=== PATIENT | female | born 1955 | race African-American/Black ===

== ENCOUNTER 2019-11-08 12:18 | Inpatient (IN) ==
--- NOTE | 2019-11-08 14:59 | Internal Med History&Physical ---
Medical - H&P: [facility] Patient information: Note initiated : 11/08/19 at 2:57 pm Service Date, if different from initiated Date: [] Patient: Gayla Hewitt 63 y/o F admitted on 11/08/19 for Osteomyelitis. Chief Complaint: [] History of present illness: Ms. Refugio Burnett is a 63 year old F 63-year-old female who was is being worked up for thoracic region back pain outpatient and underwent MRI of the lumbar thoracic spine which found to have osteomyelitis discitis of T8-9 and T12-L1. Pain is been going on for over 3 months. She was brought into [facility] started on vancomycin and cefepime. Blood cultures growing Staph. Echocardiogram pending. Final biopsy was obtained as well and a PICC line placed. Blood culture obtained on the fifth and again today on the seventh at [place]. Plan was for dialysis and then removal of that port, having determined by nephrology. Review of Systems: Pertinent positives as above including occasional nausea. Denies headache/fever/chills/vomiting/chest or abdominal pain/cough/dyspnea/diarrhea. Remaining 10 point review of system reviewed negative. Medical - H&P: [facility] Medical history: Medical history: Strain of lumbar region (Acute) Arteriovenous fistula for hemodialysis in place, primary (Chronic) Vision loss of right eye (Chronic) ESRD on hemodialysis (Chronic) Right sided weakness (Chronic) CKD (chronic kidney disease) (Chronic) Risk for falls (Chronic) Diabetes (Chronic) Bone disease (Chronic) Able to function independently (Chronic) Disruptive behavior (Chronic) Retinal detachment (Chronic) Nephropathy (Chronic) ESRD (end stage renal disease) (Chronic) Hx of transfusion of packed red blood cells (Chronic) Congestive heart failure (Chronic) Blindness of right eye (Chronic) Weakness of right lower extremity (Chronic) Disc herniation (Chronic) Cord compression (Chronic) Essential hypertension (Chronic) Repeated falls (Chronic) Difficulty in walking, not elsewhere classified (Chronic) Rhabdomyolysis (Chronic) Muscle weakness (Chronic) Hyperlipidemia (Chronic) Right hip pain (Chronic) Kidney failure (Chronic) Joint pain (Chronic) High cholesterol (Chronic) High blood pressure (Chronic) Type 2 diabetes mellitus (Chronic) Muscle pain (Chronic) Anemia (Chronic) Surgical history: Left upper extremity fistula Ankle surgery Right subclavian port Laser surgery for diabetic retinopathy Family history: Father with prostate cancer Social history: Patient denies tobacco or alcohol Medical - H&P: Meds Home Medications Medication Instructions Recorded Confirmed Type calcium carbonate 300 mg (750 mg) 300 mg PO TID 06/18/19 11/05/19 History chewable tablet torsemide 20 mg tablet 20 mg PO QDAY #90 tab 07/24/19 11/05/19 Rx clopidogrel 75 mg tablet 75 mg PO QDAY #90 tab 07/25/19 11/05/19 Rx lidocaine-prilocaine 2.5 %-2.5 % 1 applic TOPICAL 3XW #5 g 09/11/19 11/05/19 Rx topical cream calcitonin (salmon) 200 1 spray INTRANASAL (ALT) QDAY 28 10/03/19 11/05/19 Rx unit/actuation nasal spray Days #3.7 ml nifedipine 60 mg tablet,extended 60 mg PO QDAY #30 tab 10/16/19 11/05/19 Rx release cholecalciferol (vitamin D3) 50 2,000 unit PO QDAY #30 tab 10/18/19 11/05/19 Rx mcg (2,000 unit) tablet cyclobenzaprine 10 mg tablet 10 mg PO TID PRN #30 tab 11/05/19 11/05/19 Rx oxycodone-acetaminophen 5 mg-325 1 tab PO BID PRN #30 tab 11/05/19 11/05/19 Rx mg tablet Allergies Allergy/AdvReac Type Severity Reaction Status Date / Time No Known Drug Allergies Allergy Verified 11/05/19 07:54 Medical - H&P: Exam - Constitutional Exam: General: Alert, Awake, No acute Distress Eyes/N/T: EOMI, PERRL, Head/Neck: neck supple, normocephalic atraumatic CV: RRR, 3/6 SM, normal s1/s2 Pulm: Clear b/l, no wheezing/rhonchi/rales Abd: soft, nontender, +BS x4 Ext: no clubbing/cyanosis, trace b/l LE edmea, AV fistula LUE Neuro: Alert, no focal deficits, moves all extremities, CN 2-12 grossly intact, symmetrical strength b/l upper/lower, sensations intact b/l upper/lower Skin: warm/dry Medical - H&P: A/P - Narrative A/P Narrative: A: *Osteomyelitis/discitis T8-9 and T12-L1: *Bacteremia (Staph Epi): *DM: Diet controlled *ESRD: has AV fistula 06/2019 then stent placed 07/2019 (Dr. Short/Gabriela) and is on ASA/Plavix *Anemia, chronic: *Chronic LBP: *HTN: * P: -pending biopsy results, serial BCs (11/08 from [facility]) -ID following, currently on vanco/cefazolin -echo pending from [facility] -Dr. Alvarez for HD; HD cath to come out after HD with tip culture, timing determined by nephrology -cont home torsemide/nifedipine -cont home asa/plavix -pain control -SSI - -ppx: heparin
[2019-11-08] MEDS ORDERED: POTASSIUM CHLORIDE 20 MEQ TABLET PO PRN (15:08)
[2019-11-08] MEDS ORDERED: ACETAMINOPHEN 325 MG TABLET PO PRN (15:08)
[2019-11-08] MEDS ORDERED: IPRATROPIUM/ALBUTEROL 3 ML AMPUL.NEB NEB PRN (15:08)
[2019-11-08] MEDS ORDERED: SENNOSIDES 1 TABLET PO PRN (15:08)
[2019-11-08] MEDS ORDERED: POLYETHYLENE GLYCOL 3350 17 GM PACKET PO PRN (15:08)
[2019-11-08] MEDS ORDERED: MAGNESIUM SULFATE 2 GM/50 ML BAG IV PRN (15:08)
[2019-11-08] MEDS ORDERED: DEXTROSE 50% 50 ML VIAL IV PRN (15:11)
[2019-11-08] MEDS ORDERED: DEXTROSE 31 GM ORAL.SUSP PO PRN (15:11)
[2019-11-08] MEDS ORDERED: ceFAZolin 1 GM VIAL IV SCH (15:15)
[2019-11-08] MEDS ORDERED: VANCOMYCIN PER PHARMACY IV SCH (16:30)
--- NOTE | 2019-11-08 16:34 | Event Note ---
Full note to follow tomorrow. Pt referred to me by PCP (Dr Suggs) for MRI findings concerning for discitis, osteomyelitis and phelgmon at T8-T9 and also discitis at T10-T11. Given her risk factors (dialysis patient with a catheter), she was sent to [facility] for admission, biopsy of spine, blood Cx [as [facility] had no empty beds]. Blood Cx from 11/06 growing mec A positive Staph epidermidis, with final sensi pending. Now she is back to [facility] for inpatient dialysis and management of spinal oste and bacteremia. Recs: - take out the HD cath as it is the likely source - repeat blood Cx - send MRSA nasal swab. Consider decolonization, if positive - TTE (if not done at [facility]) - US of AV fistula site to r/o any suspicious fluid collections. - IV Vanc per pharmacy dosing with dosing after each HD. Check levels prior to each HD with target (15-20) - IV Cefazolin can be stopped Sharan Vasquez MD Infectious diseases
[2019-11-08] MEDS: INSULIN LISPRO 1 UNIT/0.01 ML UNIT SQ SCH ×2 (17:36→22:22)
--- NOTE | 2019-11-08 18:40 | Nephrology Progress Note ---
Subjective Patient information: Note initiated : 11/08/19 at 6:03 pm Service Date, if different from initiated Date: [] Patient: Gayla Hewitt 63 y/o F admitted on 11/08/19 for Osteomyelitis. Chief Complaint: [] Principal diagnosis: T-spine discitis / osteomyelitis Interval history: Patient is a dialysis patient followed by Dr Potts and PCP Dr Tobin. She has ESRD and retinopathy from DM. She dialyzes qMWF at [facility] HD unit. She has been experiencing back pain for 2 months and an MRI was ordered which demonstrated a area of discitis and osteomyelitis. She was admitted to [facility] for ABx and IR aspiration of t fluid collection. Today, she had a low grade fever. Initial blood cultures have grown Gram positive cocci on 11/06/2019 Aspiration of fluid was performed on 11/07/2019 and gm stain with WBC but no organisms seen. TTE was performed and there was MR with mobile density on chordae c/w loose chrodae or vegitation. Suspect osteo/discitis t-spine, Possibe endocarditis Long tern cuffed HD catheter use. Plan HD Vanco to keep trough level > 20 8 weeks of ABx Catheter removal Rehab and PT Home antitibiotics with home health Pertinent ROS: Nothing to add to admission ROS Additional PMFSH (Level 3 Only): NTA Objective - Vital Signs Vital signs: Vital Signs Temp Pulse Resp BP Pulse Ox 11/08/19 16:00 36.7 C 16 160/83 92 11/08/19 15:08 36.8 C 95 H 20 172/82 94 Intake and Output 11/08/19 11/08/19 11/08/19 05:59 13:59 21:59 Intake Total 50 Balance 50 Intake: Oral 50 Intake & Output: Intake & Output 11/08/19 11/08/19 11/08/19 05:59 13:59 21:59 Intake Total 50 Balance 50 Intake: Oral 50 - General Appearance General appearance: well-developed, well-nourished, appears started age, moderate distress EENT: ATNC, PERRL, mucous membranes dry, exudate, TM abnormal, scleral icterus Neck: no JVD, no thyromegaly, supple Respiratory: scoliosis Cardiology: holosystolic murmur, rub, no gallops, regular rate Gastrointestinal: obese Neurologic: no focal deficit, alert and oriented x3, strength 5/5, CN 3-12 intact (RigAVFht IJ cuffed HD catheter and left AVF) Musculoskeletal: no deformities, deformities, no erythema, erythema Assessment and Plan (1) Discitis of thoracolumbar region 1. Follow up blood and spinal aspirate cultures from [facility]. 2. PT/OT 3. 8 weeks of culture guided ABx 4. Follow murmur as if this is UMESH, she could deteriorate rapidly 5. Catheter out as soon as Monday 6. Trend Vanco, CRP and blood cultures 7. Home or outpatient Abx once final ID and sensitivities are known. Status: Acute Priority: High Comment: T12-L1 (2) ESRD (end stage renal disease) 1. Use 16 gauge needles and low flows 2. Catheter out LATESHA 3. Aranesp and 1,25 vit d 3 analogues as needed. 4. HD tomorrow Status: Chronic Priority: Medium
[2019-11-08] MEDS: ONDANSETRON 4 MG/2 ML VIAL IV PRN (19:57)
[2019-11-08] MEDS: DOCUSATE SODIUM 100 MG CAPSULE PO SCH (22:21)
[2019-11-08] MEDS: HEPARIN 5,000 UNIT/ML VIAL SQ SCH (22:22)
[2019-11-08] MEDS: 0.9 % SODIUM CHLORIDE 10 ML SYRINGE IV SCH (22:22)
[2019-11-08] MEDS ORDERED: 0.9 % SODIUM CHLORIDE 10 ML SYRINGE IV PRN (22:24)
[2019-11-09] MEDS ORDERED: oxyCODONE/APAP 5/325MG TABLET PO PRN (01:46)
[2019-11-09] MEDS ORDERED: oxyCODONE/APAP 5/325MG TABLET PO ONE (01:52)
[2019-11-09] MEDS: 0.9 % SODIUM CHLORIDE 10 ML SYRINGE IV SCH ×5 (04:57→22:28)
[2019-11-09 07:08] LABS: Basophils # (Auto) 0.06 K/mcL (0.00-0.30); Eosinophils # (Auto) 0.22 K/mcL (0.00-0.70); Eosinophils % (Auto) 3.7 % (0.0-7.0); Granulocytes % (Auto) 73.1 % (38.0-78.0); Hematocrit 31.5 % (34.1-44.9); Hemoglobin 9.6 g/dL (11.2-15.7); Lymphocytes # (Auto) 0.93 K/mcL (1.50-4.80); Lymphocytes % (Auto) 15.6 % (15.5-49.0); Mean Cell Volume 86.5 fL (80.0-100.0); Mean Corpuscular HGB Conc 30.5 g/dL (31.0-36.0); Monocytes # (Auto) 0.39 K/mcL (0.10-0.90); Monocytes % (Auto) 6.6 % (1.0-12.0); Platelet Count 494 K/mcL (140-440); RBC 3.64 M/mcL (3.59-5.38); Red Cell Distribution Width 13.8 % (11.5-14.5)
[2019-11-09] MEDS: INSULIN LISPRO 1 UNIT/0.01 ML UNIT SQ SCH ×4 (07:20→20:54)
[2019-11-09 07:49] LABS: Bilirubin,Direct < 0.2 mg/dL (0.0-0.3); Chloride 100 mmol/L (96-108)
[2019-11-09 07:50] LABS: ALT/SGPT < 5 U/l (0-40); AST/SGOT 8 U/l (0-37); Albumin 3.2 gm/dL (3.2-5.2); Alkaline Phosphatase 71 U/L (39-117); Bilirubin,Total 0.4 mg/dL (0.0-1.0); Blood Urea Nitrogen 29 mg/dl (8-23); Calcium 8.7 mg/dl (8.6-10.4); Carbon Dioxide 21 mmol/L (22-30); Globulin 3.3 gm/dL (2.2-3.7); Glomerular Filtration Rate 10; Glucose 67 mg/dL (70-105); Lactate Dehydrogenase 209 U/L (94-250); Phosphorous 3.6 mg/dL (2.7-4.5); Triglycerides 115 mg/dl (<150)
[2019-11-09] MEDS ORDERED: CYCLOBENZAPRINE (PP) 10 MG TABLET PO PRN (08:18)
--- NOTE | 2019-11-09 08:23 | Internal Med Progress Note ---
Medical - PN: Subj Patient information: Note initiated : 11/09/19 at 8:22 am Service Date, if different from initiated Date: [] Patient: Gayla Hewitt 63 y/o F admitted on 11/08/19 for Osteomyelitis. Chief Complaint: [] Interval history: Ms. Refugio Burnett is a 63 year old F 63-year-old female who was is being worked up for thoracic region back pain outpatient and underwent MRI of the lumbar thoracic spine which found to have osteomyelitis discitis of T8-9 and T12-L1. Pain is been going on for over 3 months. She was brought into [facility] started on vancomycin and cefepime. Blood cultures growing Staph. Echocardiogram pending. Final biopsy was obtained as well and a PICC line placed. Blood culture obtained on the fifth and again today on the seventh at [place]. Plan was for dialysis and then removal of that port, having determined by nephro logy. 11/09 Feeling well no new complaints. No overnight events. Scheduled to get hemod ialysis today and then removal of HD catheter. Last blood cultures taken yesterday. Follow-up cultures tomorrow for final ID recommendations. Review of Systems: denies headache/fever/chills/nausea/vomiting/chest pain/cough/dyspnea/diarrhea. Otherwise see above. - Constitutional Vitals: Vital Signs Temp Pulse Resp BP Pulse Ox 98.4 F 91 H 16 146/75 93 11/09/19 07:34 11/09/19 07:34 11/09/19 07:34 11/09/19 07:34 11/09/19 07:34 Period Temp Pulse Resp BP Sys/Kirk Pulse Ox Last 24 Hr 97.4 F-98.9 F 86-95 16-22 134-172/72-83 92-95 Intake and Output 11/08/19 11/09/19 11/09/19 21:59 05:59 13:59 Intake Total 50 Output Total 150 Balance -100 Weight 71.169 kg Intake & Output: Intake & Output 11/08/19 11/09/19 11/09/19 21:59 05:59 13:59 Intake Total 50 Output Total 150 Balance -100 Weight 71.169 kg Intake: Oral 50 Output: Void Amount 150 Exam: General: Alert, Awake, No acute Distress Eyes/N/T: EOMI, Head/Neck: neck supple, CV: RRR, 3/6 SM, Pulm: Clear b/l, no wheezing/rhonchi/rales Abd: soft, nontender, +BS x4 Ext: no clubbing/cyanosis, trace b/l LE edmea, AV fistula LUE Neuro: Alert, no focal deficits, moves all extremities, Skin: warm/dry Medical - PN: Obj Da - Labs CBC & Chem 7: 11/09/19 05:00 11/09/19 05:00 Labs: Abnormal Lab Results 11/09/19 11/09/19 11/09/19 05:00 05:00 05:00 Hgb 9.6 L Hct 31.5 L MCHC 30.5 L Plt Count 494 H Lymph # (Auto) 0.93 L Carbon Dioxide 21 L BUN 29 H Creatinine 4.4 H Glucose 67 L PTH Intact 177.8 H Meds: Medications Acetaminophen (Tylenol) 650 mg PO Q6HP PRN PRN Reason: PAIN/FEVER > 101 Albuterol/Ipratropium (Duoneb) 3 ml NEB Q4HP PRN PRN Reason: Shortness Of Breath Clopidogrel Bisulfate (Plavix) 75 mg PO QDAY [place] Cyclobenzaprine HCl (Flexeril) 10 mg PO TIDP PRN PRN Reason: Muscle Spasm Dextrose (Dextrose 50%) 0 ml IV UD PRN PRN Reason: Hypoglycemia Diagnostic Test (Pha) (Accu-Chek) 1 each FS [facility] Last Admin: 11/09/19 07:18 Dose: 1 each Documented by: Docusate Sodium (Colace) 100 mg PO BID [facility] Last Admin: 11/08/19 22:21 Dose: Not Given Documented by: Glucose (Insta-Glucose) 15 gm PO PRN PRN PRN Reason: Hypoglycemia Heparin Sodium (Porcine) (Heparin) 5,000 unit SQ Q12 [facility] Last Admin: 11/08/19 22:22 Dose: 5,000 unit Documented by: Heparin Sodium (Porcine) (Heparin Flush) 2 ml IV Q12 [facility] Magnesium Sulfate (Magnesium Sulfate) 2 gm in 50 mls @ 50 mls/hr IV UD PRN PRN Reason: Magnesium </= 1.6 Insulin Human Lispro (Humalog) [address] [facility]; Protocol Last Admin: 11/09/19 07:20 Dose: Not Given Documented by: Non-Formulary Medication (Calcitonin,Mcgee,Synthetic [Calcitonin-Mcgee]) 1 spray intranasal (ALT) QDAY [facility] Non-Formulary Medication (Nifedipine [Nifedipine Er]) 60 mg PO QDAY [facility] Non-Formulary Medication (Torsemide [Demadex]) 20 mg PO QDAY [facility] Ondansetron HCl (Zofran) 4 mg IV Q4HP PRN PRN Reason: Nausea And Vomiting Last Admin: 11/08/19 19:57 Dose: 4 mg Documented by: Oxycodone/Acetaminophen (Percocet 5-325 Mg) 1 tab PO BIDP PRN; Protocol PRN Reason: Per Pain Protocol Polyethylene Glycol (Miralax) 17 gm PO DAILYP PRN PRN Reason: Constipation Last Admin: 11/08/19 19:57 Dose: 17 gm Documented by: Potassium Chloride (Kdur) 40 meq PO UD PRN PRN Reason: Potassium < 3 Senna (Senokot) 2 tab PO DAILYP PRN PRN Reason: Constipation Sodium Chloride (Saline Flush) 10 ml IV Q8 [facility] Last Admin: 11/09/19 04:57 Dose: 10 ml Documented by: Sodium Chloride (Saline Flush) 10 ml IV Q12 [place] Sodium Chloride (Saline Flush) 10 ml IV UD PRN PRN Reason: FLUSH Vancomycin HCl (Vancomycin Per Pharmacy) 1 order IV UD [facility] Medical - PN: A/P - Time Spent With Patient Total time spent is greater than 50% in coordination of care (as documented) at patient's floor/unit and/or counseling patient: - Narrative A/P Narrative: A: *Osteomyelitis/discitis T8-9 and T12-L1: *Bacteremia (Staph Epi): *DM: Diet controlled *ESRD: has AV fistula 06/2019 then stent placed 07/2019 (Dr. Short/[facility]) and is on ASA/Plavix *Anemia, chronic: *Chronic LBP: *HTN: P: -pending biopsy results, serial BCs (last done 11/08 from [facility]) -ID following, currently on vanco, pending final C&S of bone and blood cx's -echo pending from [facility] -Dr. Alvarez for HD; HD today then catheter removal and tip culture -cont home torsemide/nifedipine -cont home asa/plavix -pain control -SSI - -ppx: heparin
[2019-11-09] MEDS: NIFEdipine 30 MG TAB.XL.24H PO SCH (09:44)
[2019-11-09] MEDS: CLOPIDOGREL 75 MG TABLET PO SCH (09:44)
[2019-11-09] MEDS: HEPARIN 5,000 UNIT/ML VIAL SQ SCH ×2 (09:45→20:54)
[2019-11-09] MEDS: DOCUSATE SODIUM 100 MG CAPSULE PO SCH ×2 (09:46→20:54)
[2019-11-09] MEDS: CALCITONIN NASAL SPRAY 3.7ML BOTTLE NS SCH (09:47)
[2019-11-09] MEDS: CYCLOBENZAPRINE 10 MG TABLET PO PRN ×2 (10:00→20:52)
--- NOTE | 2019-11-09 10:05 | Nephrology Progress Note ---
Subjective Patient information: Note initiated : 11/09/19 at 10:03 am Service Date, if different from initiated Date: [] Patient: Gayla Hewitt 63 y/o F admitted on 11/08/19 for Osteomyelitis. Chief Complaint: [] Principal diagnosis: T-spine discitis / osteomyelitis Interval history: says she did not require any pain medication today and walked to the end of the hallway and back will have HD today via AVF Pertinent ROS: back pain improved significantly denies weakness, incontinence Objective - Vital Signs Vital signs: Vital Signs Temp Pulse Pulse Resp BP Pulse Ox 11/09/19 07:34 36.9 C 91 H 16 146/75 93 11/09/19 04:00 36.7 C 87 18 134/72 95 11/09/19 00:00 36.3 C 86 22 149/75 92 11/08/19 19:48 37.2 C 94 H 20 150/76 92 11/08/19 19:45 87 90 11/08/19 17:00 91 H 20 11/08/19 16:00 36.7 C 16 160/83 92 11/08/19 15:08 36.8 C 95 H 20 172/82 94 Intake and Output 11/08/19 11/09/19 11/09/19 21:59 05:59 13:59 Intake Total 50 100 Output Total 150 Balance -100 100 Intake: Oral 50 100 Output: Void Amount 150 Other: Weight 71.169 kg Intake & Output: Intake & Output 11/08/19 11/09/19 11/09/19 21:59 05:59 13:59 Intake Total 50 100 Output Total 150 Balance -100 100 Weight 71.169 kg Intake: Oral 50 100 Output: Void Amount 150 - General Appearance General appearance: well-developed Neck: no JVD Respiratory: clear Cardiology: no edema, regular rate, regular rhythm Integumentary: warm and dry Psychiatric: mood/affect appropriate - Lab 11/09/19 05:00 11/09/19 05:00 Most recent lab results Calcium 8.7 mg/dl (8.6-10.4) 11/09/19 05:00 Phosphorus 3.6 mg/dL (2.7-4.5) 11/09/19 05:00 Magnesium 2.0 mg/dL (1.6-2.5) 11/09/19 05:00 Assessment and Plan (1) ESRD (end stage renal disease) on dialysis Status: Chronic Priority: Medium (2) Discitis of thoracolumbar region Status: Acute Priority: High Comment: T12-L1 (3) Osteomyelitis of thoracic vertebra Status: Acute Comment: T8-9 disc adjacent endplates - Narrative A/P Narrative: ESRD on hemodialysis MWF via TDC. Estimated dry weight 67.5kg She has a left upper extremity AV fistula with good bruit and thrill on exam. The fistula will be used today for hemodialysis. In the setting of bacteremia/osteomyelitis discitis, plan to have the TDC removed *surgery consult for TDC removal if HD via AVF uneventful. If complications during HD might have to consider temporary HD catheter with line holiday / other options. close f/u of blood cultures *HD today 11/09/2019, Next HD 11/11/2019 Echocardiogram 11/07/2019 read as Normal LVEF. Mobile structure along the mitral valve which could either be a loose cord or perhaps a vegetation. Moderate aortic stenosis. LVEF 60%, grade 1 diastolic dysfunction. will need repeat echocardiogram after completion of antibiotics. MRI of the spine showed T8-9 moderate discitis and osteomyelitis. Mild phlegmon in the right paraspinous soft tissue. T12-L1 mild discitis. T11-12 moderate broad disc spur complex resulting in moderate central canal, severe right and moderate left foraminal narrowing. Vancomycin random level was 16 11/08/2019 Blood cultures 11/06/2019 gram-positive cocci, staph epidermidis. f/u blood cultures IV vancomycin dosing per pharmacy. Further management per infectious disease Hemodynamics and volume Blood pressure 134/72-146/75 this morning. She is on Procardia 60 mg p.o. daily. HD today with UF as needed to achieve dry weight. Maximum allowed UF is 13 mils per KG per hour. Acid-base Serum bicarbonate 21, mild metabolic acidosis secondary to renal disease. Balance maintained with hemodialysis. Hemodialysis today as above Bone mineral Calcium, phosphorus, magnesium within lab reference range. PTH 178, secondary hyperparathyroidism of renal origin, managed outpatient with binder as well as calcitriol 0.5 mcg 3 times weekly. The patient was unable to tolerate Renvela, iron based binder and she wanted to continue the calcium carbonate. No change Hematologic- anemia Ferritin 378, T sat 12 in October 2019. She is managed outpatient with iron infusion and Aranesp Last dose of Aranesp was 11/06/2019, 50 mcg. Continue outpatient management
[2019-11-09] MEDS: ONDANSETRON 4 MG/2 ML VIAL IV PRN ×2 (10:25→20:56)
--- NOTE | 2019-11-09 12:41 | Infectious Disease Consult ---
History of Present Illness Patient information: Note initiated : 11/09/19 at 12:07 pm Service Date, if different from initiated Date: [] Patient: Gayla Hewitt 63 y/o F admitted on 11/08/19 for Osteomyelitis. Chief Complaint: [] Consult date: 11/09/19 Requesting Physician: Darrion Camp Reason for Consult: Staph epidermidis bacteremia Chief complaint: my back hurts History of present illness: 63-year-old lady with PMHx of: - ESRD on HD through right chest wall TDC since 04/2019. [facility]) - chronic back pain with discectomy at T8 level in [place] about 3 years ago (records not available) Pt is admitted as a transfer from [facility]. Pt initially presented to Dr Ponce (IPC at [facility]) with c/o mid-low back pain going on for last 2-3 mnths. She didnot have any fevers, but endorsed occasional chills. She denied any steroid injections in the back, recent surgeries, sick contacts. She underwent MRI of T/L spine which showed T8-T9 discitis with osteomyelitis and right sided paraspinous soft tissue phlegmon, T12-L1 discitis. She was referred to me by her PCP who followed the MRI results. Pt was subsequently asked to go to ER at [facility] (as [facility] had no open beds) for inpatient w/u and evaluation for spinal discitis/osteomyelitis. Blood Cx were sent by Dr Tobin on 11/06. Her blood Cx from 11/06 grew MRSE (methicillin resist Staph epi). She underwent biopsy of the T12-L1 discitis, with Cx growing MRSE. Pt was seen by ID in [facility] and had been on IV vanc and IV Cefepime. A PICC line and midline was also placed at [facility]. Pt transferred to [facility] yesterday. At time of visit, she felt better except for back pain. rates it 07/11. Denied any fever, chills, n/v, diarrhea. Denied any pain or redness at the HD cath site. Denies any antibiotic allergies. Review of Systems All systems PM: reviewed and no additional remarkable complaints except as stated Constitutional: as per HPI Past History Past social history: Lives in [place], [place] doesnot use any injection drugs, doesnot smoke Medications and Allergies Home Medications Medication Instructions Recorded Confirmed Type calcium carbonate 300 mg (750 mg) 300 mg PO TID 06/18/19 11/09/19 History chewable tablet torsemide 20 mg tablet 20 mg PO QDAY #90 tab 07/24/19 11/09/19 Rx clopidogrel 75 mg tablet 75 mg PO QDAY #90 tab 07/25/19 11/09/19 Rx lidocaine-prilocaine 2.5 %-2.5 % 1 applic TOPICAL 3XW #5 g 09/11/19 11/09/19 Rx topical cream calcitonin (salmon) 200 1 spray INTRANASAL (ALT) QDAY 28 10/03/19 11/09/19 Rx unit/actuation nasal spray Days #3.7 ml nifedipine 60 mg tablet,extended 60 mg PO QDAY #30 tab 10/16/19 11/09/19 Rx release cholecalciferol (vitamin D3) 50 2,000 unit PO QDAY #30 tab 10/18/19 11/09/19 Rx mcg (2,000 unit) tablet cyclobenzaprine 10 mg tablet 10 mg PO TID PRN #30 tab 11/05/19 11/09/19 Rx oxycodone-acetaminophen 5 mg-325 1 tab PO BID PRN #30 tab 11/05/19 11/09/19 Rx mg tablet Allergies Allergy/AdvReac Type Severity Reaction Status Date / Time No Known Drug Allergies Allergy Verified 11/05/19 07:54 Physical Examination Vital signs: Temp Pulse Resp BP Pulse Ox 37.0 C 89 16 152/76 96 11/09/19 11:49 11/09/19 11:49 11/09/19 11:49 11/09/19 11:49 11/09/19 11:49 General appearance: no acute distress Eyes pulmonary: nonicteric ENT: oropharynx moist Auscultation: bilateral: clear Cardiovascular: other (s1 s2 normal, 2/6 ESM best heard at left 2nd ICS) Gastrointestinal: normoactive bowel sounds, soft, non-tender Integumentary: normal Musculoskeletal: no deformities Gait: other (non tender joints (knees, ankles, wrists, elbows)) left arm AVF Rt arm PICC line, right arm midline Rt sided tunneled chest wall catheter: non tender Results - Laboratory Findings CBC and BMP: 11/09/19 05:00 11/09/19 05:00 Abnormal lab findings: Abnormal Labs 11/09/19 11/09/19 11/09/19 05:00 05:00 05:00 Hgb 9.6 L Hct 31.5 L MCHC 30.5 L Plt Count 494 H Lymph # (Auto) 0.93 L Carbon Dioxide 21 L BUN 29 H Creatinine 4.4 H Glucose 67 L PTH Intact 177.8 H Assessment and Plan - Narrative A/P Narrative: A: 1. 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 The size of structure is 6 mm. - sec to (1) 3. T8-T9 discitis, osteomyelitis with paraspinous phlegmon - sec to (1) 4. T12-L1 discitis - sec to (1) - Biopsy Cx from 11/07/19 growing Staph epidermidis (methicillin resistant) 5. ESRD on HD - has right chest wall TDC and left arm AVF Recommendations: - Continue IV Vancomycin 1 gm after each HD (per pharmacy assisted dosing). Check Vanc levels prior to each HD (target 15-20) - Remove the tunnelled HD catheter, Rt arm PICC line and right arm midline - Obtain blood Cx, 2 sets today: 1 from HD catheter and 1 from midline - MRSA nasal swab. If +ve, consider decolonization with intranasal mupirocin and below neck whole body CHG wipes - A new dialysis cath could be placed per Nephrology (Dr. Sanchez/ Dr Pichardo), preferably after 48 hrs of blood Cx (drawn today) to be negative - anticipate 6-8 weeks of IV antibiotics. No PICC line needed as Vanc can be given with HD - will plan for a YOGESH as outpatient, if any change in hemodynamic status (new onset heart failure, multiple days of +ve blood Cx, new conduction block) - consider Telemetry during inpatient stay will follow Sharan Vasquez MD Infectious diseases
[2019-11-09 12:48] LABS: Vancomycin,Random 15.1 ug/mL
[2019-11-09] MEDS ORDERED: VANCOMYCIN 1,000 MG in 0.9 % SODIUM CHLORIDE 250 ML IV ONE ×2 (13:00→18:00)
[2019-11-09] MEDS: CALCIUM CARBONATE 500 MG TAB.CHEW CHEWED SCH ×2 (17:14→20:55)
[2019-11-09] MEDS: oxyCODONE/APAP 5/325MG TABLET PO PRN (20:53)
[2019-11-10] MEDS: 0.9 % SODIUM CHLORIDE 10 ML SYRINGE IV SCH ×5 (05:29→22:01)
[2019-11-10] MEDS: INSULIN LISPRO 1 UNIT/0.01 ML UNIT SQ SCH ×4 (07:38→20:54)
--- NOTE | 2019-11-10 08:42 | Internal Med Progress Note ---
Medical - PN: Subj Patient information: Note initiated : 11/10/19 at 8:38 am Service Date, if different from initiated Date: [] Patient: Gayla Hewitt 63 y/o F admitted on 11/08/19 for Osteomyelitis. Chief Complaint: [] Interval history: Ms. Refugio Burnett is a 63 year old F 63-year-old female who was is being worked up for thoracic region back pain outpatient and underwent MRI of the lumbar thoracic spine which found to have osteomyelitis discitis of T8-9 and T12-L1. Pain is been going on for over 3 months. She was brought into [facility] started on vancomycin and cefepime. Blood cultures growing Staph. Echocardiogram pending. Final biopsy was obtained as well and a PICC line placed. Blood culture obtained on the fifth and again today on the seventh at [place]. Plan was for dialysis and then removal of that port, having determined by nephro logy. 11/09 Feeling well no new complaints. No overnight events. Scheduled to get hemod ialysis today and then removal of HD catheter. Last blood cultures taken yesterday. Follow-up cultures tomorrow for final ID recommendations. 11/10 Feeling well. No overnight events. Sleeping well. PICC line in midline out. Awaiting removal of HD cath. Dialysis yesterday. Review of Systems: denies headache/fever/chills/nausea/vomiting/chest pain/cough/dyspnea/diarrhea. Otherwise see above. - Constitutional Vitals: Vital Signs Temp Pulse Resp BP Pulse Ox 97.5 F 85 20 123/70 95 11/10/19 08:00 11/10/19 08:00 11/10/19 08:00 11/10/19 08:00 11/10/19 08:00 Period Temp Pulse Resp BP Sys/Kirk Pulse Ox Last 24 Hr 97.2 F-99.4 F 82-96 14-20 116-182/62-100 95-96 Intake and Output 11/09/19 11/10/19 11/10/19 21:59 05:59 13:59 Intake Total 150 640 Output Total 2600 Balance -2450 640 Weight 68.039 kg Intake & Output: Intake & Output 11/09/19 11/10/19 11/10/19 21:59 05:59 13:59 Intake Total 150 640 Output Total 2600 Balance -2450 640 Weight 68.039 kg Intake: Oral 150 640 Output: Hemodialysis UF 2600 Other: Meal Dinner Percent of Meal Consumed 50% Exam: General: Alert, Awake, No acute Distress Eyes/N/T: EOMI, Head/Neck: neck supple, CV: RRR, 3/6 SM, Pulm: Clear b/l, no wheezing/rhonchi/rales Abd: soft, nontender, +BS x4 Ext: no clubbing/cyanosis, trace b/l LE edmea, AV fistula LUE Neuro: Alert, no focal deficits, moves all extremities, Skin: warm/dry Medical - PN: Obj Da - Labs CBC & Chem 7: 11/09/19 05:00 11/09/19 05:00 Labs: Abnormal Lab Results 11/09/19 11/09/19 11/09/19 05:00 05:00 05:00 Hgb 9.6 L Hct 31.5 L MCHC 30.5 L Plt Count 494 H Lymph # (Auto) 0.93 L Carbon Dioxide 21 L BUN 29 H Creatinine 4.4 H Glucose 67 L PTH Intact 177.8 H Meds: Medications Acetaminophen (Tylenol) 650 mg PO Q6HP PRN PRN Reason: PAIN/FEVER > 101 Albuterol/Ipratropium (Duoneb) 3 ml NEB Q4HP PRN PRN Reason: Shortness Of Breath Calcitonin [place] (Miacalcin) 1 spray NS DAILY [facility] Last Admin: 11/09/19 09:47 Dose: Not Given Documented by: Calcium Carbonate/Glycine (Tums) 500 mg CHEWED TID [facility] Last Admin: 11/09/19 20:55 Dose: 500 mg Documented by: Clopidogrel Bisulfate (Plavix) 75 mg PO QDAY [facility] Last Admin: 11/09/19 09:44 Dose: 75 mg Documented by: Cyclobenzaprine HCl (Flexeril) 10 mg PO TIDP PRN PRN Reason: Muscle Spasm Last Admin: 11/09/19 20:52 Dose: 10 mg Documented by: Dextrose (Dextrose 50%) 0 ml IV UD PRN PRN Reason: Hypoglycemia Diagnostic Test (Pha) (Accu-Chek) 1 each FS ACHS [facility] Last Admin: 11/10/19 07:37 Dose: 1 each Documented by: Docusate Sodium (Colace) 100 mg PO BID [facility] Last Admin: 11/09/19 20:54 Dose: 100 mg Documented by: Glucose (Insta-Glucose) 15 gm PO PRN PRN PRN Reason: Hypoglycemia Heparin Sodium (Porcine) (Heparin) 5,000 unit SQ Q12 [facility] Last Admin: 11/09/19 20:54 Dose: 5,000 unit Documented by: Heparin Sodium (Porcine) (Heparin Flush) 2 ml IV Q12 [facility] Last Admin: 11/09/19 22:28 Dose: Not Given Documented by: Magnesium Sulfate (Magnesium Sulfate) 2 gm in 50 mls @ 50 mls/hr IV UD PRN PRN Reason: Magnesium </= 1.6 Insulin Human Lispro (Humalog) 0 unit SQ ACHS [facility]; Protocol Last Admin: 11/10/19 07:38 Dose: Not Given Documented by: Nifedipine (Procardia Xl) 60 mg PO DAILY [facility] Last Admin: 11/09/19 09:44 Dose: 60 mg Documented by: Ondansetron HCl (Zofran) 4 mg IV Q4HP PRN PRN Reason: Nausea And Vomiting Last Admin: 11/09/19 20:56 Dose: 4 mg Documented by: Oxycodone/Acetaminophen (Percocet 5-325 Mg) 1 tab PO Q6HP PRN; Protocol PRN Reason: Per Pain Protocol Last Admin: 11/09/19 20:53 Dose: 1 tab Documented by: Polyethylene Glycol (Miralax) 17 gm PO DAILYP PRN PRN Reason: Constipation Last Admin: 11/08/19 19:57 Dose: 17 gm Documented by: Potassium Chloride (Kdur) 40 meq PO UD PRN PRN Reason: Potassium < 3 Senna (Senokot) 2 tab PO DAILYP PRN PRN Reason: Constipation Sodium Chloride (Saline Flush) 10 ml IV Q8 [facility] Last Admin: 11/10/19 05:29 Dose: 10 ml Documented by: Sodium Chloride (Saline Flush) 10 ml IV Q12 [facility] Last Admin: 11/09/19 20:55 Dose: 10 ml Documented by: Sodium Chloride (Saline Flush) 10 ml IV UD PRN PRN Reason: FLUSH Torsemide (Demadex) 20 mg PO SuTuThSa@0900 [facility] Vancomycin HCl (Vancomycin Per Pharmacy) 1 order IV UD [facility] Vitamin D (Vitamin D3) 2,000 unit PO DAILY [place] Medical - PN: A/P - Time Spent With Patient Total time spent is greater than 50% in coordination of care (as documented) at patient's floor/unit and/or counseling patient: - Narrative A/P Narrative: A: *Osteomyelitis/discitis T8-9 and T12-L1: *Endocarditis: as evidenced by vegetation on MV and (+)BC's *Bacteremia (Staph Epi): -GPC in 11/09 BC *DM: Diet controlled *ESRD: has AV fistula 06/2019 then stent placed 07/2019 (Dr. Short/Gabriela) and is on ASA/Plavix *Anemia, chronic: *Chronic LBP: *HTN: P: -pending biopsy results, serial BCs until neg, repeat in AM -ID following, currently on vanco, pending final C&S of bone and blood cx's -Dr. Alvarez for HD; -Dr. Julio for removal of HD cath, tip culture -u/s of fistula per Nephro -cont home torsemide/nifedipine -cont home asa/plavix -pain control -SSI - -ppx: heparin
--- NOTE | 2019-11-10 10:44 | Nephrology Progress Note ---
Subjective Patient information: Note initiated : 11/10/19 at 10:42 am Service Date, if different from initiated Date: [] Patient: Gayla Hewitt 63 y/o F admitted on 11/08/19 for Osteomyelitis. Chief Complaint: [] Principal diagnosis: T-spine discitis / osteomyelitis Interval history: more fatigue today, she thinks it might be related to dialysis had HD yesterday 11/09/2019, well tolerated, high venous pressure continues to have pain- abdomen to back, no weakness or incontinence lines removed with the exception of HD line, scheduled to be done tomorrow Pertinent ROS: per interval history Objective - Vital Signs Vital signs: Vital Signs Temp Pulse Pulse Resp BP BP BP 11/10/19 09:25 88 13 11/10/19 08:00 36.4 C 85 20 123/70 11/10/19 04:17 36.2 C 84 14 116/62 11/09/19 23:34 37.0 C 89 16 116/64 11/09/19 20:00 36.9 C 96 H 14 116/64 11/09/19 16:35 89 161/100 11/09/19 16:25 37.1 C 89 161/93 11/09/19 16:10 89 161/83 11/09/19 15:55 82 148/87 11/09/19 15:40 89 151/88 11/09/19 15:25 88 159/87 11/09/19 15:10 91 H 148/86 11/09/19 14:55 85 156/82 11/09/19 14:40 90 150/89 11/09/19 14:25 88 161/85 11/09/19 14:10 90 158/79 11/09/19 13:55 90 151/84 11/09/19 13:40 91 H 160/86 11/09/19 13:34 89 15 11/09/19 13:25 89 172/87 11/09/19 13:10 95 H 182/94 11/09/19 12:55 89 165/87 11/09/19 12:40 89 158/92 11/09/19 12:15 37.4 C H 92 H 168/81 11/09/19 11:49 37.0 C 89 16 152/76 Pulse Ox 11/10/19 09:25 11/10/19 08:00 95 02/09/20 04:17 95 11/09/19 23:34 95 11/09/19 20:00 95 11/09/19 16:35 11/09/19 16:25 11/09/19 16:10 11/09/19 15:55 11/09/19 15:40 11/09/19 15:25 11/09/19 15:10 11/09/19 14:55 11/09/19 14:40 11/09/19 14:25 11/09/19 14:10 11/09/19 13:55 11/09/19 13:40 11/09/19 13:34 11/09/19 13:25 11/09/19 13:10 11/09/19 12:55 11/09/19 12:40 11/09/19 12:15 11/09/19 11:49 96 Intake and Output 11/09/19 11/10/19 11/10/19 21:59 05:59 13:59 Intake Total 150 640 Output Total 2600 Balance -2450 640 Intake: Oral 150 640 Output: Hemodialysis UF 2600 Other: Meal Dinner Percent of Meal Consumed 50% Weight 68.039 kg Intake & Output: Intake & Output 11/09/19 11/10/19 11/10/19 21:59 05:59 13:59 Intake Total 150 640 Output Total 2600 Balance -2450 640 Weight 68.039 kg Intake: Oral 150 640 Output: Hemodialysis UF 2600 Other: Meal Dinner Percent of Meal Consumed 50% - General Appearance General appearance: fatigue Cardiology: no edema, regular rate, regular rhythm Integumentary: warm and dry Psychiatric: mood/affect appropriate - Lab 11/11/19 05:20 11/11/19 05:20 Most recent lab results Calcium 8.7 mg/dl (8.6-10.4) 11/09/19 05:00 Phosphorus 3.6 mg/dL (2.7-4.5) 11/09/19 05:00 Magnesium 2.0 mg/dL (1.6-2.5) 11/09/19 05:00 Assessment and Plan (1) ESRD (end stage renal disease) on dialysis Status: Chronic Priority: Medium (2) Discitis of thoracolumbar region Status: Acute Priority: High Comment: T12-L1 (3) Osteomyelitis of thoracic vertebra Status: Acute Comment: T8-9 disc adjacent endplates (4) Bacteremia Status: Acute - Narrative A/P Narrative: ESRD on hemodialysis MWF via TDC. Estimated dry weight 67.5kg She has a left upper extremity AV fistula, tech at the bedside performing AV fistula ultrasound as high venous pressure on HD 11/09/2019 last HD 11/09/2019 via AVF * AVF ultrasound (had stent placement in 2019, fall) *surgery consulted for TDC removal; if change in mental status, hemodynamics, the catheter should be removed emergently. I will contact Dr. Julio to discuss the case today *Next HD 11/11/2019 via LUE AVF Echocardiogram 11/07/2019 read as Normal LVEF. Mobile structure along the mitral valve which could either be a loose cord or perhaps a vegetation. Moderate aortic stenosis. LVEF 60%, grade 1 diastolic dysfunction. MRI of the spine showed T8-9 moderate discitis and osteomyelitis. Mild phlegmon in the right paraspinous soft tissue. T12-L1 mild discitis. T11-12 moderate broad disc spur complex resulting in moderate central canal, severe right and moderate left foraminal narrowing. Vancomycin random level was 16 11/08/2019 Blood cultures 11/09/2019 gram-positive cocci f/u blood cultures IV vancomycin dosing per pharmacy. Further management per infectious disease Hemodynamics and volume Blood pressure controlled with Procardia. Hold Procardia this morning if SBP is below 130. clinically euvolemic. Acid-base Serum bicarbonate 21 11/09/2019, mild metabolic acidosis secondary to renal disease. Balance maintained with hemodialysis. Hemodialysis today as above Bone mineral Calcium, phosphorus, magnesium within lab reference range. PTH 178, secondary hyperparathyroidism of renal origin, managed outpatient with binder as well as calcitriol 0.5 mcg 3 times weekly. The patient was unable to tolerate Renvela, iron based binder and she wanted to continue the calcium carbonate. No change Hematologic- anemia Ferritin 378, T sat 12 in October 2019. She is managed outpatient with iron infusion and Aranesp. we will hold iron as active infection. Last dose of Aranesp was 11/06/2019, 50 mcg. Continue outpatient management
[2019-11-10] MEDS: TORSEMIDE 10 MG TABLET PO SCH (11:44)
[2019-11-10] MEDS: NIFEdipine 30 MG TAB.XL.24H PO PRN (11:44)
[2019-11-10] MEDS: VITAMIN D3 1,000 UNIT TABLET PO SCH (11:45)
[2019-11-10] MEDS: CALCIUM CARBONATE 500 MG TAB.CHEW CHEWED SCH ×3 (11:45→20:52)
[2019-11-10] MEDS: CLOPIDOGREL 75 MG TABLET PO SCH (11:45)
[2019-11-10] MEDS: DOCUSATE SODIUM 100 MG CAPSULE PO SCH ×2 (11:46→20:52)
[2019-11-10] MEDS: CALCITONIN NASAL SPRAY 3.7ML BOTTLE NS SCH (11:46)
[2019-11-10] MEDS: HEPARIN 5,000 UNIT/ML VIAL SQ SCH ×2 (11:49→20:52)
[2019-11-10] MEDS: NIFEdipine 30 MG TAB.XL.24H PO SCH (12:27)
--- NOTE | 2019-11-10 13:14 | Ultrasound Report ---
CLINICAL INFORMATION: Brachial artery to cephalic vein fistula decreased venous outflow pressures COMPARISON: None. FINDINGS: Anastomosis is widely patent. There is a stent within the venous portion of the fistula adjacent to the anastomosis. Marked elevation in systolic velocity seen within the stent proximal venous outflow or spinal stenosis greater than 90%. In the midportion of the metallic vein there is a stenosis where the 90%. Stenosis greater than 50% is seen in the proximal cephalic vein at the axillary vein junction. IMPRESSION: Brachial artery to cephalic artery fistula. A stent present in the proximal venous outflow demonstrates 90% in-stent restenosis. Second 90% stenosis in the mid cephalic outflow vein and a stenosis greater than 50% present in the proximal cephalic outflow vein at the junction of the axillary vein Interpreted and Authenticated by: Praneeth Holcomb 11/10/19
[2019-11-10] MEDS ORDERED: HYDROmorphone 2 MG/ML VIAL ONE (15:24)
[2019-11-10] MEDS ORDERED: HYDROmorphone 2 MG/ML VIAL IV SCH (15:30)
--- NOTE | 2019-11-10 16:15 | General Surgery Procedure Note ---
Date of procedure: Note initiated : 11/10/19 at 4:14 pm Service Date, if different from initiated Date: [] Pre-op diagnosis: end-stage renal disease; vertebral osteomyelitis Post-op diagnosis: other (, end-stage renal disease; vertebral osteomyelitis) Procedure: Removal of tunneled hemodialysis catheter right internal jugular vein Grafts/Implants: None Anesthesia: local Surgeon: Maureen Julio Estimated blood loss: 3 Pathology: other (catheter tip sent for culture and sensitivity) Description of procedure: Verbal and written consent was obtained for removal of the catheter under local anesthesia at the bedside. The neck and right chest were prepped and draped with ChloraPrep. Local infiltration with 1% Xylocaine was carried out over the distal third of the catheter near the insertion site. Longitudinal incision was made along the catheter until the retaining collar was encountered. Using Metzenbaum scissors. The ingrowth of tissue was circumferentially excised. The catheter was removed and the pseudo-epithelialized tunnel was closed with 2-0 Monocryl. The skin was closed with 2-0 Prolene. Tegaderm dressing was placed. Patient tolerated the procedure well.. Condition: stable Disposition: floor
[2019-11-10] MEDS: ONDANSETRON 4 MG/2 ML VIAL IV PRN (19:37)
[2019-11-10] MEDS: oxyCODONE/APAP 5/325MG TABLET PO PRN (20:59)
[2019-11-11] MEDS: 0.9 % SODIUM CHLORIDE 10 ML SYRINGE IV SCH ×4 (05:14→21:57)
[2019-11-11] MEDS: INSULIN LISPRO 1 UNIT/0.01 ML UNIT SQ SCH ×4 (06:50→22:08)
[2019-11-11 06:55] LABS: Basophils # (Auto) 0.05 K/mcL (0.00-0.30); Basophils % (Auto) 0.8 % (0.0-2.0); Eosinophils % (Auto) 3.3 % (0.0-7.0); Granulocytes % (Auto) 76.4 % (38.0-78.0); Hematocrit 32.2 % (34.1-44.9); Hemoglobin 9.5 g/dL (11.2-15.7); Lymphocytes # (Auto) 0.86 K/mcL (1.50-4.80); Lymphocytes % (Auto) 14.1 % (15.5-49.0); Mean Cell Volume 88.7 fL (80.0-100.0); Mean Corpuscular HGB Conc 29.5 g/dL (31.0-36.0); Mean Platelet Volume 8.8 fL (7.4-10.4); Monocytes # (Auto) 0.33 K/mcL (0.10-0.90); Monocytes % (Auto) 5.4 % (1.0-12.0); Platelet Count 538 K/mcL (140-440); RBC 3.63 M/mcL (3.59-5.38); Red Cell Distribution Width 13.8 % (11.5-14.5); WBC 6.1 K/mcL (4.50-11.00)
[2019-11-11] MEDS: HEPARIN 5,000 UNIT/ML VIAL SQ SCH ×2 (06:59→21:58)
[2019-11-11] MEDS: VITAMIN D3 1,000 UNIT TABLET PO SCH (06:59)
[2019-11-11] MEDS: oxyCODONE/APAP 5/325MG TABLET PO PRN ×3 (06:59→21:57)
[2019-11-11] MEDS: ONDANSETRON 4 MG/2 ML VIAL IV PRN (06:59)
[2019-11-11] MEDS: CLOPIDOGREL 75 MG TABLET PO SCH (06:59)
[2019-11-11] MEDS: CALCIUM CARBONATE 500 MG TAB.CHEW CHEWED SCH ×3 (07:00→21:23)
[2019-11-11] MEDS: DOCUSATE SODIUM 100 MG CAPSULE PO SCH ×2 (07:00→21:57)
[2019-11-11] MEDS: CALCITONIN NASAL SPRAY 3.7ML BOTTLE NS SCH (07:00)
[2019-11-11 07:27] LABS: Bilirubin,Direct < 0.2 mg/dL (0.0-0.3); Chloride 100 mmol/L (96-108)
[2019-11-11 07:28] LABS: ALT/SGPT < 5 U/l (0-40); AST/SGOT 9 U/l (0-37); Albumin/Globulin Ratio 0.8 (1.0-2.3); Alkaline Phosphatase 67 U/L (39-117); Bilirubin,Total 0.3 mg/dL (0.0-1.0); Blood Urea Nitrogen 37 mg/dl (8-23); Calcium 8.6 mg/dl (8.6-10.4); Carbon Dioxide 22 mmol/L (22-30); Globulin 3.8 gm/dL (2.2-3.7); Glomerular Filtration Rate 10; Glucose 90 mg/dL (70-105); Lactate Dehydrogenase 200 U/L (94-250); Triglycerides 102 mg/dl (<150); Uric Acid 3.8 mg/dL (2.5-8.0)
--- NOTE | 2019-11-11 07:42 | Internal Med Progress Note ---
Medical - PN: Subj Patient information: Note initiated : 11/11/19 at 7:40 am Service Date, if different from initiated Date: [] Patient: Gayla Hewitt 63 y/o F admitted on 11/08/19 for Osteomyelitis. Chief Complaint: [] Interval history: Ms. Refugio Burnett is a 63 year old F 63-year-old female who was is being worked up for thoracic region back pain outpatient and underwent MRI of the lumbar thoracic spine which found to have osteomyelitis discitis of T8-9 and T12-L1. Pain is been going on for over 3 months. She was brought into [facility] started on vancomycin and cefepime. Blood cultures growing Staph. Echocardiogram pending. Final biopsy was obtained as well and a PICC line placed. Blood culture obtained on the fifth and again today on the seventh at [facility]. Plan was for dialysis and then removal of that port, having determined by nephro logy. 11/09 Feeling well no new complaints. No overnight events. Scheduled to get hemod ialysis today and then removal of HD catheter. Last blood cultures taken yesterday. Follow-up cultures tomorrow for final ID recommendations. 11/10 Feeling well. No overnight events. Sleeping well. PICC line in midline out. Awaiting removal of HD cath. Dialysis yesterday. 11/11 HD cath removed yesterday. 11/09 blood cultures also. Patient feeling well no new complaints. Slept well. Review of Systems: denies headache/fever/chills/nausea/vomiting/chest pain/cough/dyspnea/diarrhea. Otherwise see above. - Constitutional Vitals: Vital Signs Temp Pulse Resp BP Pulse Ox 98.8 F 93 H 16 117/73 95 11/10/19 23:01 11/10/19 23:01 11/10/19 23:01 11/10/19 23:01 11/10/19 23:01 Period Temp Pulse Resp BP Sys/Kirk Pulse Ox Last 24 Hr 97.5 F-98.8 F 85-93 13-20 117-152/70-85 94-95 Intake and Output 11/10/19 11/11/19 11/11/19 21:59 05:59 13:59 Weight 67.177 kg Intake & Output: Intake & Output 11/10/19 11/11/19 11/11/19 21:59 05:59 13:59 Weight 67.177 kg Other: Meal Nourishment/Supplement Percent of Meal Consumed 100% Exam: General: Alert, Awake, No acute Distress Eyes/N/T: EOMI, Head/Neck: neck supple, CV: RRR, 3/6 SM, Pulm: Clear b/l, no wheezing/rhonchi/rales Abd: soft, nontender, +BS x4 Ext: no clubbing/cyanosis, trace b/l LE edmea, AV fistula LUE Neuro: Alert, no focal deficits, moves all extremities, Skin: warm/dry Medical - PN: Obj Da - Labs CBC & Chem 7: 11/11/19 05:20 11/11/19 05:20 Labs: Abnormal Lab Results 11/11/19 11/11/19 11/09/19 05:20 05:20 05:00 Hgb 9.5 L Hct 32.2 L MCHC 29.5 L Plt Count 538 H Lymph % (Auto) 14.1 L Lymph # (Auto) 0.86 L Carbon Dioxide BUN 37 H Creatinine 4.3 H Glucose Albumin 3.0 L Globulin 3.8 H Albumin/Globulin Ratio 0.8 L PTH Intact 177.8 H 11/09/19 11/09/19 05:00 05:00 Hgb 9.6 L Hct 31.5 L MCHC 30.5 L Plt Count 494 H Lymph % (Auto) Lymph # (Auto) 0.93 L Carbon Dioxide 21 L BUN 29 H Creatinine 4.4 H Glucose 67 L Albumin Globulin Albumin/Globulin Ratio PTH Intact Meds: Medications Acetaminophen (Tylenol) 650 mg PO Q6HP PRN PRN Reason: PAIN/FEVER > 101 Albuterol/Ipratropium (Duoneb) 3 ml NEB Q4HP PRN PRN Reason: Shortness Of Breath Calcitonin [place] (Miacalcin) 1 spray NS DAILY [facility] Last Admin: 11/11/19 07:00 Dose: Not Given Documented by: Calcium Carbonate/Glycine (Tums) 500 mg CHEWED TID [facility] Last Admin: 11/11/19 07:00 Dose: Not Given Documented by: Clopidogrel Bisulfate (Plavix) 75 mg PO QDAY [facility] Last Admin: 11/11/19 06:59 Dose: 75 mg Documented by: Cyclobenzaprine HCl (Flexeril) 10 mg PO TIDP PRN PRN Reason: Muscle Spasm Last Admin: 11/09/19 20:52 Dose: 10 mg Documented by: Dextrose (Dextrose 50%) 0 ml IV UD PRN PRN Reason: Hypoglycemia Diagnostic Test (Pha) (Accu-Chek) 1 each FS ACHS [facility] Last Admin: 11/11/19 06:49 Dose: 1 each Documented by: Docusate Sodium (Colace) 100 mg PO BID [facility] Last Admin: 11/11/19 07:00 Dose: 100 mg Documented by: Glucose (Insta-Glucose) 15 gm PO PRN PRN PRN Reason: Hypoglycemia Heparin Sodium (Porcine) (Heparin) 5,000 unit SQ Q12 [facility] Last Admin: 11/11/19 06:59 Dose: 5,000 unit Documented by: Magnesium Sulfate (Magnesium Sulfate) 2 gm in 50 mls @ 50 mls/hr IV UD PRN PRN Reason: Magnesium </= 1.6 Insulin Human Lispro (Humalog) 0 unit SQ [facility]; Protocol Last Admin: 11/11/19 06:50 Dose: Not Given Documented by: Nifedipine (Procardia Xl) 60 mg PO DAILYP PRN PRN Reason: Hypertension Last Admin: 11/10/19 11:44 Dose: 60 mg Documented by: Ondansetron HCl (Zofran) 4 mg IV Q4HP PRN PRN Reason: Nausea And Vomiting Last Admin: 11/11/19 06:59 Dose: 4 mg Documented by: Oxycodone/Acetaminophen (Percocet 5-325 Mg) 1 tab PO Q6HP PRN; Protocol PRN Reason: Per Pain Protocol Last Admin: 11/11/19 06:59 Dose: 1 tab Documented by: Polyethylene Glycol (Miralax) 17 gm PO DAILYP PRN PRN Reason: Constipation Last Admin: 11/08/19 19:57 Dose: 17 gm Documented by: Potassium Chloride (Kdur) 40 meq PO UD PRN PRN Reason: Potassium < 3 Senna (Senokot) 2 tab PO DAILYP PRN PRN Reason: Constipation Sodium Chloride (Saline Flush) 10 ml IV Q8 [facility] Last Admin: 11/11/19 05:14 Dose: 10 ml Documented by: Sodium Chloride (Saline Flush) 10 ml IV Q12 [facility] Last Admin: 11/11/19 07:00 Dose: 10 ml Documented by: Sodium Chloride (Saline Flush) 10 ml IV UD PRN PRN Reason: FLUSH Torsemide (Demadex) 20 mg PO SuTuThSa@0900 [facility] Last Admin: 11/10/19 11:44 Dose: 20 mg Documented by: Vancomycin HCl (Vancomycin Per Pharmacy) 1 order IV UD [facility] Vitamin D (Vitamin D3) 2,000 unit PO DAILY [facility] Last Admin: 11/11/19 06:59 Dose: 2,000 unit Documented by: Medical - PN: A/P - Time Spent With Patient Total time spent is greater than 50% in coordination of care (as documented) at patient's floor/unit and/or counseling patient: - Narrative A/P Narrative: A: *Osteomyelitis/discitis T8-9 and T12-L1: *Endocarditis: as evidenced by vegetation on MV and (+)BC's *Bacteremia (Staph Epi): -GPC in 11/09 BC -HD cath removed 11/10 *DM: Diet controlled *ESRD: has AV fistula 06/2019 then stent placed 07/2019 (Dr. Short/Gabri[facility]) and is on ASA/Plavix *Anemia, chronic: *Chronic LBP: *HTN: P: -pending biopsy results, serial BCs until neg, -ID following, currently on vanco, pending final C&S of bone and blood cx's -Dr. Alvarez/Del[place] for HD; -cont home torsemide/nifedipine -cont home asa/plavix -pain control -SSI - -ppx: heparin
[2019-11-11] MEDS: CYCLOBENZAPRINE 10 MG TABLET PO PRN (07:59)
--- NOTE | 2019-11-11 08:50 | Nephrology Progress Note ---
Subjective Patient information: Note initiated : 11/11/19 at 8:20 am Service Date, if different from initiated Date: [] Patient: Gayla Hewitt 63 y/o F admitted on 11/08/19 for Osteomyelitis. Chief Complaint: [] Principal diagnosis: T-spine discitis / osteomyelitis Interval history: When I initially saw her the patient was in pain. She does agree to take a Flexeril. Her dialysis catheter was removed yesterday. Ultrasound of the AV fistula was performed and showed stenosis Denies chills, shortness of breath, edema Pertinent ROS: As above Objective - Vital Signs Vital signs: Vital Signs Temp Pulse Pulse Resp BP BP Pulse Ox 11/10/19 23:01 37.1 C 93 H 16 117/73 95 11/10/19 20:00 36.8 C 90 16 138/79 95 11/10/19 16:00 37.1 C 89 18 152/85 95 11/10/19 12:00 36.9 C 92 H 20 151/72 94 11/10/19 09:25 88 13 Intake and Output 11/10/19 11/11/19 11/11/19 21:59 05:59 13:59 Other: Meal Nourishment/Supplement Percent of Meal Consumed 100% Weight 67.177 kg Intake & Output: Intake & Output 11/10/19 11/11/19 11/11/19 21:59 05:59 13:59 Weight 67.177 kg Other: Meal Nourishment/Supplement Percent of Meal Consumed 100% - General Appearance General appearance: well-developed, moderate distress EENT: ATNC Neck: no JVD Cardiology: no edema Integumentary: warm and dry - Lab 11/11/19 05:20 11/11/19 05:20 Most recent lab results Calcium 8.6 mg/dl (8.6-10.4) 11/11/19 05:20 Phosphorus 3.0 mg/dL (2.7-4.5) 11/11/19 05:20 Magnesium 2.1 mg/dL (1.6-2.5) 11/11/19 05:20 Assessment and Plan (1) ESRD (end stage renal disease) on dialysis Status: Chronic Priority: Medium (2) Discitis of thoracolumbar region Status: Acute Priority: High Comment: T12-L1 (3) Osteomyelitis of thoracic vertebra Status: Acute Comment: T8-9 disc adjacent endplates (4) Bacteremia Status: Acute - Narrative A/P Narrative: ESRD on hemodialysis MWF. Estimated dry weight 67.5kg She has a left upper extremity AV fistula. last HD 11/09/2019 via AVF complicated by increased venous pressures. Next dialysis tomorrow 11/12/2019 via AV fistula. Continue to use small bore needles, low blood flow. Prescription as follows: Use 17-gauge needles, blood flow 250 as tolerated, dialysate flow twice the rate of the blood flow, 2K bath, UF as tolerated to dry weight. access Right tunneled dialysis catheter removed. AVF ultrasound (had stent placement in 2018, fall), stent present in the proximal venous outflow demonstrates 90% in-stent restenosis. Second 90% stenosis in the mid cephalic outflow vein and a stenosis greater than 50% in the proximal cephalic outflow vein. The patient has stenosis and she will need an angiography/intervention once her blood cultures become clear- this was discussed with Laura our marketing outreach coordinator. I did discuss with Dr. Pedro MCWILLIAMS. He would like for us to consider stent removal because of the risk of stent biofilm formation with potential recurrence of bacteremia. I will follow- up closely on the blood cultures, if they clear it might be reasonable to attempt to preserve the current access. This is a complex case and further decision about the need for catheter placement/interventions will be made over the next few days based on how she tolerates dialysis. Echocardiogram 11/07/2019 read as Normal LVEF. Mobile structure along the mitral valve which could either be a loose cord or perhaps a vegetation. Moderate aortic stenosis. LVEF 60%, grade 1 diastolic dysfunction. MRI of the spine showed T8-9 moderate discitis and osteomyelitis. Mild phlegmon in the right paraspinous soft tissue. T12-L1 mild discitis. T11-12 moderate broad disc spur complex resulting in moderate central canal, severe right and moderate left foraminal narrowing. Vancomycin random level was 16 11/08/2019. Blood cultures 11/09/2019 gram-positive cocci; I am not sure that the cultures were drawn correctly. Per HD RN report the blood from the peripheral line might have been mixed with the one from the HD catheter. f/u blood cultures IV vancomycin dosing per pharmacy. Further management per infectious disease. I discussed with our pharmacist, she is going to draw a Vanc level tomorrow. Hemodynamics and volume Blood pressure controlled with Procardia. Hold Procardia this morning if SBP is below 130. clinically euvolemic. Acid-base Serum bicarbonate 22. Balance maintained with hemodialysis. Hemodialysis tomorrow as above Bone mineral Calcium, phosphorus, magnesium within lab reference range. PTH 178, secondary hyperparathyroidism of renal origin, managed outpatient with binder as well as calcitriol 0.5 mcg 3 times weekly. The patient was unable to tolerate Renvela, iron based binder and she wanted to continue the calcium carbonate. No change Hematologic- anemia Ferritin 378, T sat 12 in October 2019. She is managed outpatient with iron infusion and Aranesp. we will hold iron as active infection. Last dose of Aranesp was 11/06/2019, 50 mcg. Repeat this monday.
[2019-11-11] MEDS: NIFEdipine 30 MG TAB.XL.24H PO PRN (10:52)
--- NOTE | 2019-11-11 16:18 | Infectious Disease Prog Note ---
Subjective Patient information: Note initiated : 11/11/19 at 4:05 pm Service Date, if different from initiated Date: [] Patient: Gayla Hewitt 63 y/o F admitted on 11/08/19 for Osteomyelitis. Chief Complaint: [] Principal diagnosis: T-spine discitis / osteomyelitis Interval history: Pt doing fine overall. rates her back pain as same as when she arrived. Denied any fever, chills, n/v, diarrhea, new joint pain, lower extremity weakness/numbness. Discussed concerns about left AV fistula stent infection, blood Cx results and ongoing management. Objective Objective Narrative: ao x 3, in nad no thrush chest cta s1 soft s2 normal, has 2/6 ESM in Lt and Rt 2nd ICS bs ++, nttd no pain with movement of hip, knee, ankle, elbow, wrist and shoulder joints no swelling/redness over ankle, knee, wrist and elbow joints power 5/5 in lower extremities Left arm AV fistula with palpable bruit. The stent can be palpated, is non tender, no redness or swelling. The right chest wall cath removal site is slightly tender, no active drainage - Vital Signs Vital signs: Vital Signs Temp Pulse Resp BP BP Pulse Ox 11/11/19 11:59 37.2 C 93 H 18 147/82 95 11/11/19 08:00 37.1 C 101 H 18 132/72 96 11/10/19 23:01 37.1 C 93 H 16 117/73 95 11/10/19 20:00 36.8 C 90 16 138/79 95 Intake and Output 11/11/19 11/11/19 11/11/19 05:59 13:59 21:59 Intake Total 480 Output Total 150 Balance 330 Intake: Nourishment/Supplement quantity 240 (ml) Oral 240 Output: Void Amount 150 Other: Meal Breakfast Percent of Meal Consumed 100% Feeding Ability Independent Urine Appearance Cloudy Urine Color Light Maty Urine Odor Normal Intake & Output: Intake & Output 11/11/19 11/11/19 11/11/19 05:59 13:59 21:59 Intake Total 480 Output Total 150 Balance 330 Intake: Nourishment/Supplement quantity 240 (ml) Oral 240 Output: Void Amount 150 Other: Meal Breakfast Percent of Meal Consumed 100% Feeding Ability Independent Urine Appearance Cloudy Urine Color Light Maty Urine Odor Normal - Lab 11/11/19 05:20 11/11/19 05:20 Most recent lab results Calcium 8.6 mg/dl (8.6-10.4) 11/11/19 05:20 Phosphorus 3.0 mg/dL (2.7-4.5) 11/11/19 05:20 Magnesium 2.1 mg/dL (1.6-2.5) 11/11/19 05:20 Microbiology 11/09/19 17:06 Blood - First Blood Culture - Preliminary Gram positive cocci 11/09/19 17:00 Blood - First Blood Culture - Preliminary Gram positive cocci Gram positive cocci#2 11/10/19 17:14 Catheter Tip - Not Given Catheter Tip Culture - Preliminary 11/09/19 11:46 Nose - Both Right and Left MRSA (PCR) - Final Medications Active Medications: Acetaminophen (Tylenol) 650 mg PO Q6HP PRN PRN Reason: PAIN/FEVER > 101 Albuterol/Ipratropium (Duoneb) 3 ml NEB Q4HP PRN PRN Reason: Shortness Of Breath Calcitonin [address] (Miacalcin) 1 spray NS DAILY [facility] Last Admin: 11/11/19 07:00 Dose: Not Given Documented by: LCOURTRIGH Non-Admin Reason: med unavailable Admin: 11/10/19 11:46 Dose: Not Given Documented by: LCOURTRIGH Non-Admin Reason: med is not here, pt is instructed to bring in Admin: 11/09/19 09:47 Dose: Not Given Documented by: LCOURTRIGH Non-Admin Reason: medication not brought in yet Calcium Carbonate/Glycine (Tums) 500 mg CHEWED TID [facility] Last Admin: 11/11/19 07:00 Dose: Not Given Documented by: LCOURTRIGH Non-Admin Reason: Patient Refused Admin: 11/10/19 20:52 Dose: 500 mg Documented by: [email or web address] Admin: 11/10/19 15:45 Dose: Not Given Documented by: LCOURTRIGH Non-Admin Reason: Patient Refused Admin: 11/10/19 11:45 Dose: Not Given Documented by: LCOURTRIGH Non-Admin Reason: Patient Refused Admin: 11/09/19 20:55 Dose: 500 mg Documented by: [email or web address] Admin: 11/09/19 17:14 Dose: Not Given Documented by: LCOURTRIGH Non-Admin Reason: Patient Refused Clopidogrel Bisulfate (Plavix) 75 mg PO QDAY [facility] Last Admin: 11/11/19 06:59 Dose: 75 mg Documented by: Admin: 11/10/19 11:45 Dose: 75 mg Documented by: Admin: 11/09/19 09:44 Dose: 75 mg Documented by: CODI Cyclobenzaprine HCl (Flexeril) 10 mg PO TIDP PRN PRN Reason: Muscle Spasm Last Admin: 11/11/19 07:59 Dose: 10 mg Documented by: Admin: 11/09/19 20:52 Dose: 10 mg Documented by: Admin: 11/09/19 10:00 Dose: 10 mg Documented by: CODI Dextrose (Dextrose 50%) 0 ml IV UD PRN PRN Reason: Hypoglycemia Diagnostic Test (Pha) (Accu-Chek) 1 each FS ACHS [facility] Last Admin: 11/11/19 10:55 Dose: 1 each Documented by: Admin: 11/11/19 06:49 Dose: 1 each Documented by: Admin: 11/10/19 20:53 Dose: 1 each Documented by: Admin: 11/10/19 17:10 Dose: 1 each Documented by: Admin: 11/10/19 11:43 Dose: 1 each Documented by: Admin: 11/10/19 07:37 Dose: 1 each Documented by: Admin: 11/09/19 20:53 Dose: 1 each Documented by: Admin: 11/09/19 17:12 Dose: 1 each Documented by: Admin: 11/09/19 11:39 Dose: 1 each Documented by: Admin: 11/09/19 07:18 Dose: 1 each Documented by: Admin: 11/08/19 22:21 Dose: 1 each Documented by: Admin: 11/08/19 17:36 Dose: 1 each Documented by: ANA PAULA Docusate Sodium (Colace) 100 mg PO BID [facility] Last Admin: 11/11/19 07:00 Dose: 100 mg Documented by: Admin: 11/10/19 20:52 Dose: 100 mg Documented by: [email or web address] Admin: 11/10/19 11:46 Dose: Not Given Documented by: CODI Non-Admin Reason: Patient Refused Admin: 11/09/19 20:54 Dose: 100 mg Documented by: Admin: 11/09/19 09:46 Dose: Not Given Documented by: CODI Non-Admin Reason: Patient Refused Admin: 11/08/19 22:21 Dose: Not Given Documented by: IMTIAZ Non-Admin Reason: Patient Refused Glucose (Insta-Glucose) 15 gm PO PRN PRN PRN Reason: Hypoglycemia Heparin Sodium (Porcine) (Heparin) 5,000 unit SQ Q12 [facility] Last Admin: 11/11/19 06:59 Dose: 5,000 unit Documented by: Admin: 11/10/19 20:52 Dose: 5,000 unit Documented by: Admin: 11/10/19 11:49 Dose: 5,000 unit Documented by: Admin: 11/09/19 20:54 Dose: 5,000 unit Documented by: Admin: 11/09/19 09:45 Dose: 5,000 unit Documented by: Admin: 11/08/19 22:22 Dose: 5,000 unit Documented by: IMTIAZ Magnesium Sulfate (Magnesium Sulfate) 2 gm in 50 mls @ 50 mls/hr IV UD PRN PRN Reason: Magnesium </= 1.6 Insulin Human Lispro (Humalog) 0 unit SQ ACHS [facility]; Protocol Last Admin: 11/11/19 13:14 Dose: Not Given Documented by: CODI Non-Admin Reason: No Coverage Needed Admin: 11/11/19 06:50 Dose: Not Given Documented by: CODI Non-Admin Reason: No Coverage Needed Admin: 11/10/19 20:54 Dose: Not Given Documented by: GLENN Non-Admin Reason: CBG 116 Admin: 11/10/19 17:30 Dose: Not Given Documented by: CODI Non-Admin Reason: No Coverage Needed Admin: 11/10/19 11:49 Dose: Not Given Documented by: CODI Non-Admin Reason: No Coverage Needed Admin: 11/10/19 07:38 Dose: Not Given Documented by: CODI Non-Admin Reason: No Coverage Needed Admin: 11/09/19 20:54 Dose: 4 units Documented by: Admin: 11/09/19 17:15 Dose: Not Given Documented by: CODI Non-Admin Reason: No Coverage Needed Admin: 11/09/19 11:40 Dose: Not Given Documented by: CODI Non-Admin Reason: No Coverage Needed Admin: 11/09/19 07:20 Dose: Not Given Documented by: CODI Non-Admin Reason: No Coverage Needed Admin: 11/08/19 22:22 Dose: Not Given Documented by: IMTIAZ Non-Admin Reason: acc check 91, no coverage required Admin: 11/08/19 17:36 Dose: Not Given Documented by: ANA PAULA Non-Admin Reason: No Coverage Needed Nifedipine (Procardia Xl) 60 mg PO DAILYP PRN PRN Reason: Hypertension Last Admin: 11/11/19 10:52 Dose: 60 mg Documented by: Admin: 11/10/19 11:44 Dose: 60 mg Documented by: CODI Ondansetron HCl (Zofran) 4 mg IV Q4HP PRN PRN Reason: Nausea And Vomiting Last Admin: 11/11/19 06:59 Dose: 4 mg Documented by: Admin: 11/10/19 19:37 Dose: 4 mg Documented by: Admin: 11/09/19 20:56 Dose: 4 mg Documented by: Admin: 11/09/19 10:25 Dose: 4 mg Documented by: Admin: 11/08/19 19:57 Dose: 4 mg Documented by: IMTIAZ Oxycodone/Acetaminophen (Percocet 5-325 Mg) 1 tab PO Q6HP PRN; Protocol PRN Reason: Per Pain Protocol Last Admin: 11/11/19 06:59 Dose: 1 tab Documented by: Admin: 11/10/19 20:59 Dose: 1 tab Documented by: Admin: 11/09/19 20:53 Dose: 1 tab Documented by: GLENN Polyethylene Glycol (Miralax) 17 gm PO DAILYP PRN PRN Reason: Constipation Last Admin: 11/08/19 19:57 Dose: 17 gm Documented by: IMTIAZ Potassium Chloride (Kdur) 40 meq PO UD PRN PRN Reason: Potassium < 3 Senna (Senokot) 2 tab PO DAILYP PRN PRN Reason: Constipation Sodium Chloride (Saline Flush) 10 ml IV Q8 [facility] Last Admin: 11/11/19 05:14 Dose: 10 ml Documented by: Admin: 11/10/19 22:01 Dose: 10 ml Documented by: Admin: 11/10/19 15:45 Dose: 10 ml Documented by: Admin: 11/10/19 05:29 Dose: 10 ml Documented by: Admin: 11/09/19 22:28 Dose: 10 ml Documented by: Admin: 11/09/19 17:15 Dose: 10 ml Documented by: Admin: 11/09/19 04:57 Dose: 10 ml Documented by: Admin: 11/08/19 22:22 Dose: 10 ml Documented by: IMTIAZ Sodium Chloride (Saline Flush) 10 ml IV Q12 [facility] Last Admin: 11/11/19 07:00 Dose: 10 ml Documented by: Admin: 11/10/19 20:56 Dose: 10 ml Documented by: Admin: 11/10/19 11:46 Dose: 10 ml Documented by: Admin: 11/09/19 20:55 Dose: 10 ml Documented by: Admin: 11/09/19 09:45 Dose: 10 ml Documented by: CODI Sodium Chloride (Saline Flush) 10 ml IV UD PRN PRN Reason: FLUSH Torsemide (Demadex) 20 mg PO SuTuThSa@0900 [facility] Last Admin: 11/10/19 11:44 Dose: 20 mg Documented by: CODI Vancomycin HCl (Vancomycin Per Pharmacy) 1 order IV UD [facility] Vitamin D (Vitamin D3) 2,000 unit PO DAILY [facility] Last Admin: 11/11/19 06:59 Dose: 2,000 unit Documented by: Admin: 11/10/19 11:45 Dose: 2,000 unit Documented by: CODI Assessment and Plan - Narrative A/P Narrative: A: 1. Complicated Staphylococcus epidermidis (methicillin resistant) [MRSE] bacteremia: - likely source right chest tunnelled dialysis catheter. Presence of endovascular stent in left AV fistula could be seeded as well due to ongoing bacteremia - s/p removal of PICC line, midline on 11/08 and HD cath on 11/10 - seeding of spine and heart valves - blood Cx from 11/06 +ve (2/2 sets) for MRSE, Cx from 11/09 2/2 sets positive with 2 different morphologies of GPC (one of which i sStaph epi, while other is being worked out) - MRSA nasal PCR neg 2. 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 The size of structure is 6 mm. - sec to (1) 3. T8-T9 discitis, osteomyelitis with paraspinous phlegmon - sec to (1) - no new neuro deficit noted on exam 4. T12-L1 discitis - sec to (1) - Biopsy Cx from 11/07/19 growing Staph epidermidis (methicillin resistant) - no new neuro deficit noted on exam 5. ESRD on HD - has right chest wall TDC and left arm AVF Recommendations: - Continue IV Vancomycin 1 gm after each HD (per pharmacy assisted dosing). Check Vanc levels prior to each HD (target 15-20) - consider removal of endovascular stent as it is likely to be seeded and might lead to relapse or persistent of bacteremia. If it is not feasible or is technically challenging, pt would need suppressive antibiotic therapy (which has its own complications: systemic side effects, risk for dev of antibiotic resistance etc.) See link at: [email or web address] [Hemodialysis-associated endovascular device infection]. - A new dialysis cath could be placed per Nephrology preferably after 48 hrs of blood Cx (drawn today) to be negative - anticipate 6-8 weeks of IV antibiotics. No PICC line needed as Vanc can be given with HD - will plan for a YOGESH as outpatient, if any change in hemodynamic status (new onset heart failure, multiple days of +ve blood Cx, new conduction block) - consider Telemetry during inpatient stay will follow Sharan Vasquez MD Infectious diseases
[2019-11-12] MEDS: CYCLOBENZAPRINE 10 MG TABLET PO PRN ×2 (04:44→13:56)
[2019-11-12] MEDS: 0.9 % SODIUM CHLORIDE 10 ML SYRINGE IV SCH ×4 (04:44→20:00)
[2019-11-12] MEDS: ONDANSETRON 4 MG/2 ML VIAL IV PRN ×3 (06:05→21:46)
[2019-11-12] MEDS: INSULIN LISPRO 1 UNIT/0.01 ML UNIT SQ SCH ×4 (07:22→21:52)
[2019-11-12 07:52] LABS: Bilirubin,Direct < 0.2 mg/dL (0.0-0.3); Chloride 100 mmol/L (96-108)
[2019-11-12 07:57] LABS: Vancomycin,Random 19.3 ug/mL
[2019-11-12 08:01] LABS: ALT/SGPT < 5 U/l (0-40); AST/SGOT 9 U/l (0-37); Albumin 3.2 gm/dL (3.2-5.2); Albumin/Globulin Ratio 0.8 (1.0-2.3); Alkaline Phosphatase 68 U/L (39-117); Bilirubin,Total 0.3 mg/dL (0.0-1.0); Blood Urea Nitrogen 50 mg/dl (8-23); Carbon Dioxide 20 mmol/L (22-30); Glomerular Filtration Rate 8; Glucose 107 mg/dL (70-105); Lactate Dehydrogenase 200 U/L (94-250); Phosphorous 3.3 mg/dL (2.7-4.5); Triglycerides 102 mg/dl (<150); Uric Acid 4.9 mg/dL (2.5-8.0)
[2019-11-12] MEDS: oxyCODONE/APAP 5/325MG TABLET PO PRN ×3 (09:01→21:47)
[2019-11-12] MEDS: HEPARIN 5,000 UNIT/ML VIAL SQ SCH ×2 (09:01→21:46)
[2019-11-12] MEDS: CALCIUM CARBONATE 500 MG TAB.CHEW CHEWED SCH ×3 (09:18→21:50)
[2019-11-12] MEDS: TORSEMIDE 10 MG TABLET PO SCH (09:18)
[2019-11-12] MEDS: CALCITONIN NASAL SPRAY 3.7ML BOTTLE NS SCH (09:18)
--- NOTE | 2019-11-12 11:05 | Internal Med Progress Note ---
Medical - PN: Subj Patient information: Note initiated : 11/12/19 at 11:01 am Service Date, if different from initiated Date: [] Patient: Gayla Hewitt 63 y/o F admitted on 11/08/19 for Osteomyelitis. Chief Complaint: [] Interval history: Ms. Refugio Burnett is a 63 year old F 63-year-old female who was is being worked up for thoracic region back pain outpatient and underwent MRI of the lumbar thoracic spine which found to have osteomyelitis discitis of T8-9 and T12-L1. Pain is been going on for over 3 months. She was brought into [facility] started on vancomycin and cefepime. Blood cultures growing Staph. Echocardiogram pending. Final biopsy was obtained as well and a PICC line placed. Blood culture obtained on the and again today on the at [place]. Plan was for dialysis and then removal of that port, having determined by neph rology. 11/09 Feeling well no new complaints. No overnight events. Scheduled to get hem odialysis today and then removal of HD catheter. Last blood cultures taken yesterday. Follow-up cultures tomorrow for final ID recommendations. 11/10 Feeling well. No overnight events. Sleeping well. PICC line in midline out. Awaiting removal of HD cath. Dialysis yesterday. 11/11 HD cath removed yesterday. 11/09 blood cultures also. Patient feeling well no new complaints. Slept well. 11/12-ongoing hemodialysis. Cultures 2 different strains of staph epidermidis. ID on board. Nephrology recommends continuing antibiotics with surveillance cultures. White count 6.1. No overnight fever chills or concerns per staff. - Constitutional Vitals: Vital Signs Temp Pulse Resp BP Pulse Ox 97.5 F 93 H 20 140/83 94 11/12/19 09:25 11/12/19 10:58 11/12/19 08:00 11/12/19 10:58 11/12/19 08:00 Period Temp Pulse Resp BP Sys/Kirk Pulse Ox Last 24 Hr 97.2 F-98.9 F 84-98 14-20 136-151/72-104 91-96 Intake and Output 11/11/19 11/12/19 11/12/19 21:59 05:59 13:59 Intake Total 240 200 480 Output Total 150 150 Balance 90 50 480 Weight 156 lb Intake & Output: Intake & Output 11/11/19 11/12/19 11/12/19 21:59 05:59 13:59 Intake Total 240 200 480 Output Total 150 150 Balance 90 50 480 Weight 156 lb Intake: Nourishment/Supplement quantity 240 240 (ml) Oral 200 240 Output: Void Amount 150 150 Other: Meal Dinner Breakfast Percent of Meal Consumed 75% 100% Feeding Ability Independent Independent Nourishment/Supplement name Mary Ellen Hyde General appearance: no acute distress Exam: Alert oriented Nonlabored breathing No anxiety Medical - PN: Obj Da - Labs CBC & Chem 7: 11/11/19 05:20 11/12/19 06:33 Labs: Abnormal Lab Results 11/12/19 11/11/19 11/11/19 06:33 05:20 05:20 Hgb 9.5 L Hct 32.2 L MCHC 29.5 L Plt Count 538 H Lymph % (Auto) 14.1 L Lymph # (Auto) 0.86 L Carbon Dioxide 20 L Anion Gap 17.0 H BUN 50 H 37 H Creatinine 5.2 H* 4.3 H Glucose 107 H Albumin 3.0 L Globulin 4.0 H 3.8 H Albumin/Globulin Ratio 0.8 L 0.8 L Meds: Medications Acetaminophen (Tylenol) 650 mg PO Q6HP PRN PRN Reason: PAIN/FEVER > 101 Albuterol/Ipratropium (Duoneb) 3 ml NEB Q4HP PRN PRN Reason: Shortness Of Breath Calcitonin [place] (Miacalcin) 1 spray NS DAILY [facility] Last Admin: 11/12/19 09:18 Dose: Not Given Documented by: Calcium Carbonate/Glycine (Tums) 500 mg CHEWED TID [facility] Last Admin: 11/12/19 09:18 Dose: Not Given Documented by: Clopidogrel Bisulfate (Plavix) 75 mg PO QDAY [facility] Last Admin: 11/11/19 06:59 Dose: 75 mg Documented by: Cyclobenzaprine HCl (Flexeril) 10 mg PO TIDP PRN PRN Reason: Muscle Spasm Last Admin: 11/12/19 04:44 Dose: 10 mg Documented by: Dextrose (Dextrose 50%) 0 ml IV UD PRN PRN Reason: Hypoglycemia Diagnostic Test (Pha) (Accu-Chek) 1 each FS ACHS [facility] Last Admin: 11/12/19 07:20 Dose: 1 each Documented by: Docusate Sodium (Colace) 100 mg PO BID [facility] Last Admin: 11/11/19 21:57 Dose: 100 mg Documented by: Glucose (Insta-Glucose) 15 gm PO PRN PRN PRN Reason: Hypoglycemia Heparin Sodium (Porcine) (Heparin) 5,000 unit SQ Q12 [facility] Last Admin: 11/12/19 09:01 Dose: 5,000 unit Documented by: Magnesium Sulfate (Magnesium Sulfate) 2 gm in 50 mls @ 50 mls/hr IV UD PRN PRN Reason: Magnesium </= 1.6 Insulin Human Lispro (Humalog) 0 unit SQ ACHS [facility]; Protocol Last Admin: 11/12/19 07:22 Dose: Not Given Documented by: Nifedipine (Procardia Xl) 60 mg PO DAILYP PRN PRN Reason: Hypertension Last Admin: 11/11/19 10:52 Dose: 60 mg Documented by: Ondansetron HCl (Zofran) 4 mg IV Q4HP PRN PRN Reason: Nausea And Vomiting Last Admin: 11/12/19 06:05 Dose: 4 mg Documented by: Oxycodone/Acetaminophen (Percocet 5-325 Mg) 1 tab PO Q6HP PRN; Protocol PRN Reason: Per Pain Protocol Last Admin: 11/12/19 09:01 Dose: 1 tab Documented by: Polyethylene Glycol (Miralax) 17 gm PO DAILYP PRN PRN Reason: Constipation Last Admin: 11/08/19 19:57 Dose: 17 gm Documented by: Potassium Chloride (Kdur) 40 meq PO UD PRN PRN Reason: Potassium < 3 Senna (Senokot) 2 tab PO DAILYP PRN PRN Reason: Constipation Sodium Chloride (Saline Flush) 10 ml IV Q8 [facility] Last Admin: 11/12/19 04:44 Dose: 10 ml Documented by: Sodium Chloride (Saline Flush) 10 ml IV UD PRN PRN Reason: FLUSH Torsemide (Demadex) 20 mg PO SuTuThSa@0900 [facility] Last Admin: 11/12/19 09:18 Dose: Not Given Documented by: Vancomycin HCl (Vancomycin Per Pharmacy) 1 order IV UD [facility] Vitamin D (Vitamin D3) 2,000 unit PO DAILY [facility] Last Admin: 11/11/19 06:59 Dose: 2,000 unit Documented by: Medical - PN: A/P - Time Spent With Patient Total time spent is greater than 50% in coordination of care (as documented) at patient's floor/unit and/or counseling patient: 25 - 35 minutes - Narrative A/P Narrative: Assessment * Osteomyelitis/discitis T8-9 and T12-L1: On antibiotic coverage * Endocarditis: as evidenced by vegetation on MV and (+)BC's * Staph epidermidis Bacteremia :-GPC in 11/09 BC -HD cath removed 11/10 * DM: Diet controlled * ESRD: has AV fistula 06/2019 then stent placed 07/2019 (Dr. Short/Gabriela) and is on ASA/Plavix * Anemia, chronic * Chronic LBP * HTN * Prophylaxis heparin * Full code Plan * Continue surveillance blood cultures * Antibiotics per ID * Renal issues management per nephrology * Prior medical condition management on home medications * PT OT nutrition support
[2019-11-12] MEDS: CLOPIDOGREL 75 MG TABLET PO SCH (13:56)
[2019-11-12] MEDS: DOCUSATE SODIUM 100 MG CAPSULE PO SCH ×2 (13:56→21:47)
[2019-11-12] MEDS: NIFEdipine 30 MG TAB.XL.24H PO PRN (13:56)
[2019-11-12] MEDS: VITAMIN D3 1,000 UNIT TABLET PO SCH (13:56)
--- NOTE | 2019-11-12 14:21 | Infectious Disease Prog Note ---
Subjective Patient information: Note initiated : 11/12/19 at 1:53 pm Service Date, if different from initiated Date: [] Patient: Gayla Hewitt 63 y/o F admitted on 11/08/19 for Osteomyelitis. Chief Complaint: [] Principal diagnosis: T-spine discitis / osteomyelitis Interval history: Pt overall doing fine. Reports back pain and transient thigh pain, noticed mainly while working with PT. Denied any focal weakness, fever, chills, n/v, diarrhea. Objective Objective Narrative: ao x 3, in nad no thrush chets cta s1 s2 normal, 2/6 ESM best heard at Rt 2nd ICS, also heard at left 2nd ICS bs ++, nttd Left arm AV fistula with stent in use for HD at time of visit - Vital Signs Vital signs: Vital Signs Temp Pulse Pulse Resp BP BP Pulse Ox 11/12/19 13:20 36.6 C 91 H 138/76 11/12/19 12:55 90 131/75 11/12/19 12:26 92 H 132/73 11/12/19 11:55 94 H 130/75 11/12/19 11:29 94 H 134/80 11/12/19 10:58 93 H 140/83 11/12/19 10:26 90 151/89 11/12/19 09:55 92 H 151/88 11/12/19 09:25 36.4 C 98 H 151/104 11/12/19 08:00 36.2 C 84 20 137/72 94 11/12/19 04:08 36.7 C 93 H 20 148/80 93 11/11/19 23:30 36.3 C 92 H 16 136/76 91 11/11/19 19:44 36.6 C 90 14 148/77 93 11/11/19 16:00 36.9 C 93 H 18 140/80 96 Intake and Output 11/11/19 11/12/19 11/12/19 21:59 05:59 13:59 Intake Total 240 200 480 Output Total 150 150 500 Balance 90 50 -20 Intake: Nourishment/Supplement quantity 240 240 (ml) Oral 200 240 Output: Void Amount 150 150 Hemodialysis UF 500 Other: Meal Dinner Breakfast Percent of Meal Consumed 75% 100% Feeding Ability Independent Independent Nourishment/Supplement name Mary Ellen Hyde Weight 70.76 kg Intake & Output: Intake & Output 02/10/20 02/11/20 02/11/20 21:59 05:59 13:59 Intake Total 240 200 480 Output Total 150 150 500 Balance 90 50 -20 Weight 70.76 kg Intake: Nourishment/Supplement quantity 240 240 (ml) Oral 200 240 Output: Void Amount 150 150 Hemodialysis UF 500 Other: Meal Dinner Breakfast Percent of Meal Consumed 75% 100% Feeding Ability Independent Independent Nourishment/Supplement name Nnekaro Nepro - Lab 11/11/19 05:20 11/12/19 06:33 Most recent lab results Calcium 9.0 mg/dl (8.6-10.4) 11/12/19 06:33 Phosphorus 3.3 mg/dL (2.7-4.5) 11/12/19 06:33 Magnesium 2.1 mg/dL (1.6-2.5) 11/12/19 06:33 Microbiology 11/09/19 17:06 Blood - First Blood Culture - Preliminary Gram positive cocci 11/09/19 17:00 Blood - First Blood Culture - Preliminary Staphylococcus epidermidis Staphylococcus epidermidis#2 11/10/19 17:14 Catheter Tip - Not Given Catheter Tip Culture - Final 11/11/19 05:25 Blood Blood Culture - Preliminary 11/11/19 05:20 Blood Blood Culture - Preliminary 11/09/19 11:46 Nose - Both Right and Left MRSA (PCR) - Final Medications Active Medications: Acetaminophen (Tylenol) 650 mg PO Q6HP PRN PRN Reason: PAIN/FEVER > 101 Albuterol/Ipratropium (Duoneb) 3 ml NEB Q4HP PRN PRN Reason: Shortness Of Breath Calcitonin [place] (Miacalcin) 1 spray NS DAILY [place] Last Admin: 11/12/19 09:18 Dose: Not Given Documented by: LCOURTRIGH Non-Admin Reason: med not available. Pt aware Admin: 11/11/19 07:00 Dose: Not Given Documented by: LCOURTRIGH Non-Admin Reason: med unavailable Admin: 11/10/19 11:46 Dose: Not Given Documented by: LCOURTRIGH Non-Admin Reason: med is not here, pt is instructed to bring in Admin: 11/09/19 09:47 Dose: Not Given Documented by: LCOURTRIGH Non-Admin Reason: medication not brought in yet Calcium Carbonate/Glycine (Tums) 500 mg CHEWED TID [facility] Last Admin: 11/12/19 09:18 Dose: Not Given Documented by: CODI Non-Admin Reason: Patient Refused Admin: 11/11/19 21:23 Dose: Not Given Documented by: FUNMI Non-Admin Reason: Patient Request Admin: 11/11/19 17:22 Dose: Not Given Documented by: CODI Non-Admin Reason: Patient Refused Admin: 11/11/19 07:00 Dose: Not Given Documented by: CODI Non-Admin Reason: Patient Refused Admin: 11/10/19 20:52 Dose: 500 mg Documented by: [email or web address] Admin: 11/10/19 15:45 Dose: Not Given Documented by: CODI Non-Admin Reason: Patient Refused Admin: 11/10/19 11:45 Dose: Not Given Documented by: CODI Non-Admin Reason: Patient Refused Admin: 11/09/19 20:55 Dose: 500 mg Documented by: Admin: 11/09/19 17:14 Dose: Not Given Documented by: CODI Non-Admin Reason: Patient Refused Clopidogrel Bisulfate (Plavix) 75 mg PO QDAY [facility] Last Admin: 11/11/19 06:59 Dose: 75 mg Documented by: Admin: 11/10/19 11:45 Dose: 75 mg Documented by: Admin: 11/09/19 09:44 Dose: 75 mg Documented by: CODI Cyclobenzaprine HCl (Flexeril) 10 mg PO TIDP PRN PRN Reason: Muscle Spasm Last Admin: 11/12/19 04:44 Dose: 10 mg Documented by: Admin: 11/11/19 07:59 Dose: 10 mg Documented by: Admin: 11/09/19 20:52 Dose: 10 mg Documented by: Admin: 11/09/19 10:00 Dose: 10 mg Documented by: CODI Dextrose (Dextrose 50%) 0 ml IV UD PRN PRN Reason: Hypoglycemia Diagnostic Test (Pha) (Accu-Chek) 1 each FS ACHS [facility] Last Admin: 11/12/19 13:38 Dose: 1 each Documented by: Admin: 11/12/19 07:20 Dose: 1 each Documented by: Admin: 11/11/19 22:02 Dose: 1 each Documented by: Admin: 11/11/19 17:09 Dose: 1 each Documented by: Admin: 11/11/19 10:55 Dose: 1 each Documented by: Admin: 11/11/19 06:49 Dose: 1 each Documented by: Admin: 11/10/19 20:53 Dose: 1 each Documented by: Admin: 11/10/19 17:10 Dose: 1 each Documented by: Admin: 11/10/19 11:43 Dose: 1 each Documented by: Admin: 11/10/19 07:37 Dose: 1 each Documented by: Admin: 11/09/19 20:53 Dose: 1 each Documented by: Admin: 11/09/19 17:12 Dose: 1 each Documented by: Admin: 11/09/19 11:39 Dose: 1 each Documented by: Admin: 11/09/19 07:18 Dose: 1 each Documented by: Admin: 11/08/19 22:21 Dose: 1 each Documented by: Admin: 11/08/19 17:36 Dose: 1 each Documented by: ANA PAULA Docusate Sodium (Colace) 100 mg PO BID [place] Last Admin: 11/11/19 21:57 Dose: 100 mg Documented by: Admin: 11/11/19 07:00 Dose: 100 mg Documented by: Admin: 11/10/19 20:52 Dose: 100 mg Documented by: Admin: 11/10/19 11:46 Dose: Not Given Documented by: CODI Non-Admin Reason: Patient Refused Admin: 11/09/19 20:54 Dose: 100 mg Documented by: Admin: 11/09/19 09:46 Dose: Not Given Documented by: CODI Non-Admin Reason: Patient Refused Admin: 11/08/19 22:21 Dose: Not Given Documented by: IMTIAZ Non-Admin Reason: Patient Refused Glucose (Insta-Glucose) 15 gm PO PRN PRN PRN Reason: Hypoglycemia Heparin Sodium (Porcine) (Heparin) 5,000 unit SQ Q12 [facility] Last Admin: 11/12/19 09:01 Dose: 5,000 unit Documented by: Admin: 11/11/19 21:58 Dose: 5,000 unit Documented by: Admin: 11/11/19 06:59 Dose: 5,000 unit Documented by: Admin: 11/10/19 20:52 Dose: 5,000 unit Documented by: Admin: 11/10/19 11:49 Dose: 5,000 unit Documented by: Admin: 11/09/19 20:54 Dose: 5,000 unit Documented by: Admin: 11/09/19 09:45 Dose: 5,000 unit Documented by: Admin: 11/08/19 22:22 Dose: 5,000 unit Documented by: [email or web address] Magnesium Sulfate (Magnesium Sulfate) 2 gm in 50 mls @ 50 mls/hr IV UD PRN PRN Reason: Magnesium </= 1.6 Vancomycin HCl 1,000 mg/ (Sodium Chloride) 250 mls @ 250 mls/hr IV ONCE ONE Stop: 11/12/19 15:59 Insulin Human Lispro (Humalog) 0 unit SQ ACHS [facility]; Protocol Last Admin: 11/12/19 13:38 Dose: Not Given Documented by: CODI Non-Admin Reason: No Coverage Needed Admin: 11/12/19 07:22 Dose: Not Given Documented by: CODI Non-Admin Reason: No Coverage Needed Admin: 11/11/19 22:08 Dose: 2 units Documented by: Admin: 11/11/19 17:09 Dose: Not Given Documented by: MARY Non-Admin Reason: No Coverage Needed Admin: 11/11/19 13:14 Dose: Not Given Documented by: CODI Non-Admin Reason: No Coverage Needed Admin: 11/11/19 06:50 Dose: Not Given Documented by: CODI Non-Admin Reason: No Coverage Needed Admin: 11/10/19 20:54 Dose: Not Given Documented by: GLENN Non-Admin Reason: CBG 116 Admin: 11/10/19 17:30 Dose: Not Given Documented by: CODI Non-Admin Reason: No Coverage Needed Admin: 11/10/19 11:49 Dose: Not Given Documented by: CODI Non-Admin Reason: No Coverage Needed Admin: 11/10/19 07:38 Dose: Not Given Documented by: CODI Non-Admin Reason: No Coverage Needed Admin: 11/09/19 20:54 Dose: 4 units Documented by: Admin: 11/09/19 17:15 Dose: Not Given Documented by: CODI Non-Admin Reason: No Coverage Needed Admin: 11/09/19 11:40 Dose: Not Given Documented by: CODI Non-Admin Reason: No Coverage Needed Admin: 11/09/19 07:20 Dose: Not Given Documented by: CODI Non-Admin Reason: No Coverage Needed Admin: 11/08/19 22:22 Dose: Not Given Documented by: IMTIAZ Non-Admin Reason: acc check 91, no coverage required Admin: 11/08/19 17:36 Dose: Not Given Documented by: ANA PAULA Non-Admin Reason: No Coverage Needed Nifedipine (Procardia Xl) 60 mg PO DAILYP PRN PRN Reason: Hypertension Last Admin: 11/11/19 10:52 Dose: 60 mg Documented by: Admin: 11/10/19 11:44 Dose: 60 mg Documented by: CODI Ondansetron HCl (Zofran) 4 mg IV Q4HP PRN PRN Reason: Nausea And Vomiting Last Admin: 11/12/19 06:05 Dose: 4 mg Documented by: Admin: 11/11/19 06:59 Dose: 4 mg Documented by: Admin: 11/10/19 19:37 Dose: 4 mg Documented by: Admin: 11/09/19 20:56 Dose: 4 mg Documented by: Admin: 11/09/19 10:25 Dose: 4 mg Documented by: Admin: 11/08/19 19:57 Dose: 4 mg Documented by: IMTIAZ Oxycodone/Acetaminophen (Percocet 5-325 Mg) 1 tab PO Q6HP PRN; Protocol PRN Reason: Per Pain Protocol Last Admin: 11/12/19 09:01 Dose: 1 tab Documented by: Admin: 11/11/19 21:57 Dose: 1 tab Documented by: Admin: 11/11/19 16:34 Dose: 1 tab Documented by: Admin: 11/11/19 06:59 Dose: 1 tab Documented by: Admin: 11/10/19 20:59 Dose: 1 tab Documented by: Admin: 11/09/19 20:53 Dose: 1 tab Documented by: GLENN Polyethylene Glycol (Miralax) 17 gm PO DAILYP PRN PRN Reason: Constipation Last Admin: 11/08/19 19:57 Dose: 17 gm Documented by: IMTIAZ Potassium Chloride (Kdur) 40 meq PO UD PRN PRN Reason: Potassium < 3 Senna (Senokot) 2 tab PO DAILYP PRN PRN Reason: Constipation Sodium Chloride (Saline Flush) 10 ml IV Q8 [facility] Last Admin: 11/12/19 04:44 Dose: 10 ml Documented by: Admin: 11/11/19 21:57 Dose: 10 ml Documented by: Admin: 11/11/19 15:35 Dose: 10 ml Documented by: Admin: 11/11/19 05:14 Dose: 10 ml Documented by: Admin: 11/10/19 22:01 Dose: 10 ml Documented by: Admin: 11/10/19 15:45 Dose: 10 ml Documented by: Admin: 11/10/19 05:29 Dose: 10 ml Documented by: Admin: 11/09/19 22:28 Dose: 10 ml Documented by: Admin: 11/09/19 17:15 Dose: 10 ml Documented by: Admin: 11/09/19 04:57 Dose: 10 ml Documented by: Admin: 11/08/19 22:22 Dose: 10 ml Documented by: IMTIAZ Sodium Chloride (Saline Flush) 10 ml IV UD PRN PRN Reason: FLUSH Torsemide (Demadex) 20 mg PO SuTuThSa@0900 [facility] Last Admin: 11/12/19 09:18 Dose: Not Given Documented by: CODI Non-Admin Reason: dialysis today Admin: 11/10/19 11:44 Dose: 20 mg Documented by: CODI Vancomycin HCl (Vancomycin Per Pharmacy) 1 order IV UD [facility] Vitamin D (Vitamin D3) 2,000 unit PO DAILY [facility] Last Admin: 11/11/19 06:59 Dose: 2,000 unit Documented by: Admin: 11/10/19 11:45 Dose: 2,000 unit Documented by: CODI Assessment and Plan - Narrative A/P Narrative: A: 1. Complicated Staphylococcus epidermidis (methicillin resistant) [MRSE] bacter emia: - likely source right chest tunnelled dialysis catheter. Presence of endovascular stent in left AV fistula could be seeded as well due to ongoing bacteremia - s/p removal of PICC line, midline on 11/08 and HD cath on 11/10 - seeding of spine and heart valves - blood Cx from 11/06 +ve (2/2 sets), 11/09 (2/2 sets) for MRSE. 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 The size of structure is 6 mm. - sec to (1) 3. T8-T9 discitis, osteomyelitis with paraspinous phlegmon - sec to (1) - no new neuro deficit noted on exam 4. T12-L1 discitis - sec to (1) - Biopsy Cx from 11/07/19 growing Staph epidermidis (methicillin resistant) - no new neuro deficit noted on exam 5. ESRD on HD - through left arm AVF and 5 centimeter Viabahn endoprosthesis (stent) placement - as the stent was placed in Jul 2019, per Nephrology it should have been vascularized with endothelium and therefore removal might be technically chal lenging - AV fistula worked fine today, and new HD cath might not be needed Recommendations: - Continue IV Vancomycin 1 gm after each HD (per pharmacy assisted dosing). Vanc level of 19 noted from today. Check Vanc levels prior to each HD (target 15-20) - Given concerns for technically challenging possibility of endovascular stent removal, will add PO Rifampin 600 mg oral once daily (first dose tomorrow am) to increase penetration into biofilms. will monitor weekly CMP - stopped Nifedipine given drug interactions with Rifampin - anticipate at least 6 weeks of IV antibiotics. No PICC line needed as Vanc can be given with HD - will plan for a YOGESH if any change in hemodynamic status (new onset heart failure, multiple days of +ve blood Cx, new conduction block) - consider Telemetry during inpatient stay will follow Sharan Vasquez MD Infectious diseases
[2019-11-12] MEDS ORDERED: VANCOMYCIN 1,000 MG in 0.9 % SODIUM CHLORIDE 250 ML IV ONE (15:00)
--- NOTE | 2019-11-12 17:45 | Nephrology Progress Note ---
Subjective Patient information: Note initiated : 11/12/19 at 5:34 pm Service Date, if different from initiated Date: [] Patient: Gayla Hewitt 63 y/o F admitted on 11/08/19 for Osteomyelitis. Chief Complaint: [] Principal diagnosis: T-spine discitis / osteomyelitis Interval history: continues to have intermittent debilitating back pain/ spasms on dialysis at the time of my visit Pertinent ROS: denies: SOB, swelling back pain Objective - Vital Signs Vital signs: Vital Signs Temp Pulse Pulse Resp BP BP Pulse Ox 11/12/19 13:20 36.6 C 91 H 138/76 11/12/19 12:55 90 131/75 11/12/19 12:26 92 H 132/73 11/12/19 11:55 94 H 130/75 11/12/19 11:29 94 H 134/80 11/12/19 10:58 93 H 140/83 11/12/19 10:26 90 151/89 11/12/19 09:55 92 H 151/88 11/12/19 09:25 36.4 C 98 H 151/104 11/12/19 08:00 36.2 C 84 20 137/72 94 11/12/19 04:08 36.7 C 93 H 20 148/80 93 11/11/19 23:30 36.3 C 92 H 16 136/76 91 11/11/19 19:44 36.6 C 90 14 148/77 93 Intake and Output 11/12/19 11/12/19 11/12/19 05:59 13:59 21:59 Intake Total 200 480 60 Output Total 150 600 Balance 50 -120 60 Intake: Nourishment/Supplement quantity 240 (ml) Oral 200 240 60 Output: Void Amount 150 100 Hemodialysis UF 500 Other: Meal Breakfast Dinner Percent of Meal Consumed 100% 75% Feeding Ability Independent Independent Nourishment/Supplement name Nepro Intake & Output: Intake & Output 11/12/19 11/12/19 11/12/19 05:59 13:59 21:59 Intake Total 200 480 60 Output Total 150 600 Balance 50 -120 60 Intake: Nourishment/Supplement quantity 240 (ml) Oral 200 240 60 Output: Void Amount 150 100 Hemodialysis UF 500 Other: Meal Breakfast Dinner Percent of Meal Consumed 100% 75% Feeding Ability Independent Independent Nourishment/Supplement name Nepro - General Appearance General appearance: moderate distress Neck: no JVD Respiratory: clear Cardiology: no edema - Lab 11/11/19 05:20 11/12/19 06:33 Most recent lab results Calcium 9.0 mg/dl (8.6-10.4) 11/12/19 06:33 Phosphorus 3.3 mg/dL (2.7-4.5) 11/12/19 06:33 Magnesium 2.1 mg/dL (1.6-2.5) 11/12/19 06:33 Assessment and Plan (1) ESRD (end stage renal disease) on dialysis Status: Chronic Priority: Medium (2) Discitis of thoracolumbar region Status: Acute Priority: High Comment: T12-L1 (3) Osteomyelitis of thoracic vertebra Status: Acute Comment: T8-9 disc adjacent endplates (4) Bacteremia Status: Acute - Narrative A/P Narrative: This is a late entry for the visit during dialysis on 11/12/2019. This is a routine dialysis treatment for Ms. Gayla Huff The patient was seen and examined during hemodialysis. She was tolerating the procedure well. Procedure done via left upper extremity AV fistula. At the time of my visit the blood flow rate was 250 mils per minute. Dialysis prescription as follows 240 minutes, 0.5 L net UF, 2K bath, bicarbonate 33, sodium 138. Dialysate rate x2 blood flow rate. Metabolic panel reviewed. Potassium 4.8, bicarbonate 20, calcium 9, albumin 3.2. Hemoglobin 9.5 11/11/2019. I will order a dose of Aranesp, 50 mcg to be administered tomorrow. next dialysis tomorrow 11/13/2019 to get her back on her home schedule.
[2019-11-13] MEDS: 0.9 % SODIUM CHLORIDE 10 ML SYRINGE IV SCH ×3 (04:25→21:23)
[2019-11-13] MEDS: INSULIN LISPRO 1 UNIT/0.01 ML UNIT SQ SCH ×4 (07:18→20:01)
[2019-11-13] MEDS: RIFAMPIN 300 MG CAPSULE PO SCH (07:19)
[2019-11-13] MEDS: oxyCODONE/APAP 5/325MG TABLET PO PRN ×3 (07:29→20:00)
[2019-11-13] MEDS: ONDANSETRON 4 MG/2 ML VIAL IV PRN ×2 (07:29→21:09)
[2019-11-13] MEDS: CLOPIDOGREL 75 MG TABLET PO SCH (10:02)
[2019-11-13] MEDS: HEPARIN 5,000 UNIT/ML VIAL SQ SCH ×2 (10:02→21:23)
[2019-11-13] MEDS: CALCIUM CARBONATE 500 MG TAB.CHEW CHEWED SCH ×3 (10:02→21:23)
[2019-11-13] MEDS: DOCUSATE SODIUM 100 MG CAPSULE PO SCH ×2 (10:02→21:23)
[2019-11-13] MEDS: VITAMIN D3 1,000 UNIT TABLET PO SCH (10:02)
[2019-11-13] MEDS: CYCLOBENZAPRINE 10 MG TABLET PO PRN (10:02)
[2019-11-13] MEDS: CALCITONIN NASAL SPRAY 3.7ML BOTTLE NS SCH (10:03)
[2019-11-13] MEDS: NYSTATIN 500,000 UNITS/5 ML ORAL.SUSP SSP SCH ×3 (14:04→21:23)
[2019-11-13] MEDS ORDERED: DARBEPOETIN ALFA 25 MCG/ML VIAL IV ONE (17:00)
--- NOTE | 2019-11-13 20:23 | Internal Med Progress Note ---
Medical - PN: Subj Patient information: Note initiated : 11/13/19 at 8:19 pm Service Date, if different from initiated Date: [] Patient: Gayla Hewitt 63 y/o F admitted on 11/08/19 for Osteomyelitis. Chief Complaint: [] Interval history: Ms. Refugio Burnett is a 63 year old F 63-year-old female who was is being worked up for thoracic region back pain outpatient and underwent MRI of the lumbar thoracic spine which found to have osteomyelitis discitis of T8-9 and T12-L1. Pain is been going on for over 3 months. She was brought into [facility] started on vancomycin and cefepime. Blood cultures growing Staph. Echocardiogram pending. Final biopsy was obtained as well and a PICC line placed. Blood culture obtained on the fifth and again today on the at [place]. Plan was for dialysis and then removal of that port, having determined by nephr ology. 11/09 Feeling well no new complaints. No overnight events. Scheduled to get hemo dialysis today and then removal of HD catheter. Last blood cultures taken yesterday. Follow-up cultures tomorrow for final ID recommendations. 11/10 Feeling well. No overnight events. Sleeping well. PICC line in midline out. Awaiting removal of HD cath. Dialysis yesterday. 11/11 HD cath removed yesterday. 11/09 blood cultures also. Patient feeling well no new complaints. Slept well. 11/12-ongoing hemodialysis. Cultures 2 different strains of staph epidermidis. ID on board. Nephrology recommends continuing antibiotics with surveillance cultures. White count 6.1. No overnight fever chills or concerns per staff. 11/13-patient doing well. Undergoing hemodialysis. Anticipate discharge in 24 hours as per ID recommendations. However remains weak and complains of back pain and spasm limiting therapy and mobility. Case management coordinating SNF transfer versus swing bed admission. - Constitutional Vitals: Vital Signs Temp Pulse Resp BP Pulse Ox 97.8 F 92 H 18 128/77 94 11/13/19 17:55 11/13/19 19:57 11/13/19 16:00 11/13/19 19:57 11/13/19 16:00 Period Temp Pulse Resp BP Sys/Kirk Pulse Ox Last 24 Hr 97.8 F-98.5 F 86-98 15-22 113-140/67-82 93-97 Intake and Output 11/13/19 11/13/19 11/13/19 05:59 13:59 21:59 Intake Total 440 240 120 Output Total 150 1 Balance 290 239 120 Weight 156 lb 3.2 oz Patient Weight 11/14/19 05:59 Weight 156 lb 3.2 oz Intake & Output: Intake & Output 11/13/19 11/13/19 11/13/19 05:59 13:59 21:59 Intake Total 440 240 120 Output Total 150 1 Balance 290 239 120 Weight 156 lb 3.2 oz Intake: Nourishment/Supplement quantity 240 (ml) Oral 440 120 Output: Void Amount 150 # of times incontinent of urine 1 Other: Meal Dinner Breakfast Dinner Percent of Meal Consumed 0% 100% 10% Feeding Ability Independent Independent Assist with Tray Set Up Nourishment/Supplement name Nepro # Voids 1 General appearance: no acute distress Exam: Alert oriented Nonlabored breathing Anxious Medical - PN: Obj Da - Labs CBC & Chem 7: 11/11/19 05:20 11/12/19 06:33 Labs: Abnormal Lab Results 11/12/19 11/11/19 11/11/19 06:33 05:20 05:20 Hgb 9.5 L Hct 32.2 L MCHC 29.5 L Plt Count 538 H Lymph % (Auto) 14.1 L Lymph # (Auto) 0.86 L Carbon Dioxide 20 L Anion Gap 17.0 H BUN 50 H 37 H Creatinine 5.2 H* 4.3 H Glucose 107 H Albumin 3.0 L Globulin 4.0 H 3.8 H Albumin/Globulin Ratio 0.8 L 0.8 L Meds: Medications Acetaminophen (Tylenol) 650 mg PO Q6HP PRN PRN Reason: PAIN/FEVER > 101 Albuterol/Ipratropium (Duoneb) 3 ml NEB Q4HP PRN PRN Reason: Shortness Of Breath Calcitonin [place] (Miacalcin) 1 spray NS DAILY [facility] Last Admin: 11/13/19 10:03 Dose: Not Given Documented by: Calcium Carbonate/Glycine (Tums) 500 mg CHEWED TID [facility] Last Admin: 11/13/19 15:14 Dose: 500 mg Documented by: Clopidogrel Bisulfate (Plavix) 75 mg PO QDAY [facility] Last Admin: 11/13/19 10:02 Dose: 75 mg Documented by: Cyclobenzaprine HCl (Flexeril) 10 mg PO TIDP PRN PRN Reason: Muscle Spasm Last Admin: 11/13/19 10:02 Dose: 10 mg Documented by: Dextrose (Dextrose 50%) 0 ml IV UD PRN PRN Reason: Hypoglycemia Diagnostic Test (Pha) (Accu-Chek) 1 each FS [facility] Last Admin: 11/13/19 20:00 Dose: 1 each Documented by: Docusate Sodium (Colace) 100 mg PO BID [facility] Last Admin: 11/13/19 10:02 Dose: 100 mg Documented by: Glucose (Insta-Glucose) 15 gm PO PRN PRN PRN Reason: Hypoglycemia Heparin Sodium (Porcine) (Heparin) 5,000 unit SQ Q12 [facility] Last Admin: 11/13/19 10:02 Dose: 5,000 unit Documented by: Magnesium Sulfate (Magnesium Sulfate) 2 gm in 50 mls @ 50 mls/hr IV UD PRN PRN Reason: Magnesium </= 1.6 Insulin Human Lispro (Humalog) 0 unit SQ [facility]; Protocol Last Admin: 11/13/19 20:01 Dose: Not Given Documented by: Nystatin (Nystatin) 500,000 units SSP QID [facility] Last Admin: 11/13/19 16:54 Dose: 500,000 units Documented by: Ondansetron HCl (Zofran) 4 mg IV Q4HP PRN PRN Reason: Nausea And Vomiting Last Admin: 11/13/19 07:29 Dose: 4 mg Documented by: Oxycodone/Acetaminophen (Percocet 5-325 Mg) 1 tab PO Q6HP PRN; Protocol PRN Reason: Per Pain Protocol Last Admin: 11/13/19 20:00 Dose: 1 tab Documented by: Polyethylene Glycol (Miralax) 17 gm PO DAILYP PRN PRN Reason: Constipation Last Admin: 11/08/19 19:57 Dose: 17 gm Documented by: Potassium Chloride (Kdur) 40 meq PO UD PRN PRN Reason: Potassium < 3 Rifampin (Rifampin) 600 mg PO QAM@0700 [facility]; Protocol Last Admin: 11/13/19 07:19 Dose: 600 mg Documented by: Senna (Senokot) 2 tab PO DAILYP PRN PRN Reason: Constipation Sodium Chloride (Saline Flush) 10 ml IV Q8 [facility] Last Admin: 11/13/19 14:04 Dose: 10 ml Documented by: Sodium Chloride (Saline Flush) 10 ml IV UD PRN PRN Reason: FLUSH Torsemide (Demadex) 20 mg PO SuTuThSa@0900 [facility] Last Admin: 11/12/19 09:18 Dose: Not Given Documented by: Vancomycin HCl (Vancomycin Per Pharmacy) 1 order IV UD [facility] Vitamin D (Vitamin D3) 2,000 unit PO DAILY [facility] Last Admin: 11/13/19 10:02 Dose: 2,000 unit Documented by: Medical - PN: A/P - Time Spent With Patient Total time spent is greater than 50% in coordination of care (as documented) at patient's floor/unit and/or counseling patient: 15 - 24 minutes - Narrative A/P Narrative: Assessment * Osteomyelitis/discitis T8-9 and T12-L1: Continue antibiotic coverage as per ID recommendations. * Endocarditis with staph epidermidis bacteremia: as evidenced by vegetation on MV and (+)BC's 11/09. HD cath removed 11/10. On rifampin/vancomycin per ID * Chronic lower back pain with intermittent spasm on Flexeril * DM: Diet controlled * ESRD: On HD per nephrology. AV fistula 06/2019 then stent placed 07/2019 (Dr. Short/Gabriela) and is on ASA/Plavix * Anemia, chronic stable * Prophylaxis heparin * Full code Plan * Continue antibiotics per ID * HD per nephrology * Prior medical condition management on home medications * PT OT nutrition support * Discharge planning likely SNF/swing bed
--- NOTE | 2019-11-13 22:32 | Infectious Disease Prog Note ---
Subjective Patient information: Note initiated : 11/13/19 at 10:29 pm Service Date, if different from initiated Date: [] Patient: Gayla Hewitt 63 y/o F admitted on 11/08/19 for Osteomyelitis. Chief Complaint: [] Principal diagnosis: T-spine discitis / osteomyelitis Interval history: Pt doing better, sitting in chair at time of visit. Denies any fever, chills, vomiting, diarrhea. Endorses nausea after taking oral medicines. Her back pain is better, rates it /10 (previously 07/11). Aware of follow up and antibiotic management. Objective Objective Narrative: ao x 3, in nad no thrush chest cta s1 s2 normal, 2/6 ESM best heard at rt 2nd ICS bs ++, nttd the left arm AVF without any redness, tenderness - Vital Signs Vital signs: Vital Signs Temp Pulse Pulse Pulse Resp BP BP 11/13/19 22:00 14 11/13/19 21:08 36.9 C 86 14 141/86 11/13/19 21:00 36.9 C 90 117/72 11/13/19 20:57 90 129/76 11/13/19 20:25 93 H 106/66 11/13/19 19:57 92 H 128/77 11/13/19 19:29 94 H 121/77 11/13/19 18:55 95 H 129/77 11/13/19 18:27 96 H 136/82 11/13/19 17:55 36.6 C 92 H 136/81 11/13/19 16:00 36.7 C 97 H 18 132/77 11/13/19 12:00 36.8 C 98 H 113/67 11/13/19 09:33 98 H 15 11/13/19 08:00 36.7 C 87 20 127/71 11/13/19 07:15 86 18 11/13/19 03:13 36.9 C 86 20 128/72 11/12/19 23:18 36.7 C 89 22 140/81 Pulse Ox 11/13/19 22:00 11/13/19 21:08 11/13/19 21:00 11/13/19 20:57 11/13/19 20:25 11/13/19 19:57 11/13/19 19:29 11/13/19 18:55 11/13/19 18:27 11/13/19 17:55 11/13/19 16:00 94 11/13/19 12:00 97 11/13/19 09:33 11/13/19 08:00 94 11/13/19 07:15 95 11/13/19 03:13 93 11/12/19 23:18 94 Intake and Output 11/13/19 11/13/19 11/14/19 13:59 21:59 05:59 Intake Total 240 120 Output Total 1 1500 Balance 239 -1380 Intake: Nourishment/Supplement quantity 240 (ml) Oral 120 Output: # of times incontinent of urine 1 Hemodialysis UF 1500 Other: Meal Breakfast Dinner Percent of Meal Consumed 100% 10% Feeding Ability Independent Assist with Tray Set Up Nourishment/Supplement name Nepro Urine Appearance Cloudy Urine Color Light Maty Urine Odor Normal # Voids 1 Weight 70.851 kg Patient Weight 11/14/19 05:59 Weight 70.851 kg Intake & Output: Intake & Output 11/13/19 11/13/19 11/14/19 13:59 21:59 05:59 Intake Total 240 120 Output Total 1 1500 Balance 239 -1380 Weight 70.851 kg Intake: Nourishment/Supplement quantity 240 (ml) Oral 120 Output: # of times incontinent of urine 1 Hemodialysis UF 1500 Other: Meal Breakfast Dinner Percent of Meal Consumed 100% 10% Feeding Ability Independent Assist with Tray Set Up Nourishment/Supplement name Nepro Urine Appearance Cloudy Urine Color Light Maty Urine Odor Normal # Voids 1 - Lab 11/11/19 05:20 11/12/19 06:33 Most recent lab results Calcium 9.0 mg/dl (8.6-10.4) 11/12/19 06:33 Phosphorus 3.3 mg/dL (2.7-4.5) 11/12/19 06:33 Magnesium 2.1 mg/dL (1.6-2.5) 11/12/19 06:33 Microbiology 11/09/19 17:06 Blood - First Blood Culture - Preliminary Staphylococcus epidermidis 11/11/19 05:25 Blood Blood Culture - Preliminary 11/11/19 05:20 Blood Blood Culture - Preliminary 11/09/19 17:00 Blood - First Blood Culture - Preliminary Staphylococcus epidermidis Staphylococcus epidermidis#2 11/10/19 17:14 Catheter Tip - Not Given Catheter Tip Culture - Final 11/09/19 11:46 Nose - Both Right and Left MRSA (PCR) - Final Medications Active Medications: Acetaminophen (Tylenol) 650 mg PO Q6HP PRN PRN Reason: PAIN/FEVER > 101 Albuterol/Ipratropium (Duoneb) 3 ml NEB Q4HP PRN PRN Reason: Shortness Of Breath Calcitonin [place] (Miacalcin) 1 spray NS DAILY [facility] Last Admin: 11/13/19 10:03 Dose: Not Given Documented by: VANESSA Non-Admin Reason: Unavailable Admin: 11/12/19 09:18 Dose: Not Given Documented by: SOSATRIGH Non-Admin Reason: med not available. Pt aware Admin: 11/11/19 07:00 Dose: Not Given Documented by: SOSATRIGH Non-Admin Reason: med unavailable Admin: 11/10/19 11:46 Dose: Not Given Documented by: LCOURTRIGH Non-Admin Reason: med is not here, pt is instructed to bring in Admin: 11/09/19 09:47 Dose: Not Given Documented by: SOSATRIGH Non-Admin Reason: medication not brought in yet Calcium Carbonate/Glycine (Tums) 500 mg CHEWED TID [facility] Last Admin: 11/13/19 21:23 Dose: 500 mg Documented by: Admin: 11/13/19 15:14 Dose: 500 mg Documented by: [email or web address] Admin: 11/13/19 10:02 Dose: 500 mg Documented by: [email or web address] Admin: 11/12/19 21:50 Dose: Not Given Documented by: [email or web address] Non-Admin Reason: Patient Request Admin: 11/12/19 15:00 Dose: Not Given Documented by: SOSATRIGH Non-Admin Reason: Patient Refused Admin: 11/12/19 09:18 Dose: Not Given Documented by: SOSATRIGH Non-Admin Reason: Patient Refused Admin: 11/11/19 21:23 Dose: Not Given Documented by: FUNMI Non-Admin Reason: Patient Request Admin: 11/11/19 17:22 Dose: Not Given Documented by: SOSATRIGH Non-Admin Reason: Patient Refused Admin: 11/11/19 07:00 Dose: Not Given Documented by: SOSATRIGH Non-Admin Reason: Patient Refused Admin: 11/10/19 20:52 Dose: 500 mg Documented by: [email or web address] Admin: 11/10/19 15:45 Dose: Not Given Documented by: CODI Non-Admin Reason: Patient Refused Admin: 11/10/19 11:45 Dose: Not Given Documented by: CODI Non-Admin Reason: Patient Refused Admin: 11/09/19 20:55 Dose: 500 mg Documented by: Admin: 11/09/19 17:14 Dose: Not Given Documented by: CODI Non-Admin Reason: Patient Refused Clopidogrel Bisulfate (Plavix) 75 mg PO QDAY [facility] Last Admin: 11/13/19 10:02 Dose: 75 mg Documented by: Admin: 11/12/19 13:56 Dose: 75 mg Documented by: Admin: 11/11/19 06:59 Dose: 75 mg Documented by: Admin: 11/10/19 11:45 Dose: 75 mg Documented by: Admin: 11/09/19 09:44 Dose: 75 mg Documented by: CODI Cyclobenzaprine HCl (Flexeril) 10 mg PO TIDP PRN PRN Reason: Muscle Spasm Last Admin: 11/13/19 10:02 Dose: 10 mg Documented by: Admin: 11/12/19 13:56 Dose: 10 mg Documented by: Admin: 11/12/19 04:44 Dose: 10 mg Documented by: Admin: 11/11/19 07:59 Dose: 10 mg Documented by: Admin: 11/09/19 20:52 Dose: 10 mg Documented by: Admin: 11/09/19 10:00 Dose: 10 mg Documented by: CODI Dextrose (Dextrose 50%) 0 ml IV UD PRN PRN Reason: Hypoglycemia Diagnostic Test (Pha) (Accu-Chek) 1 each FS ACHS [facility] Last Admin: 11/13/19 20:00 Dose: 1 each Documented by: Admin: 11/13/19 16:51 Dose: 1 each Documented by: [email or web address] Admin: 11/13/19 11:37 Dose: 1 each Documented by: [email or web address] Admin: 11/13/19 07:18 Dose: 1 each Documented by: Admin: 11/12/19 21:51 Dose: 1 each Documented by: Admin: 11/12/19 17:50 Dose: 1 each Documented by: Admin: 11/12/19 16:56 Dose: Not Given Documented by: CODI Non-Admin Reason: not needed d/t timing of meals Admin: 11/12/19 13:38 Dose: 1 each Documented by: Admin: 11/12/19 07:20 Dose: 1 each Documented by: Admin: 11/11/19 22:02 Dose: 1 each Documented by: Admin: 11/11/19 17:09 Dose: 1 each Documented by: Admin: 11/11/19 10:55 Dose: 1 each Documented by: Admin: 11/11/19 06:49 Dose: 1 each Documented by: Admin: 11/10/19 20:53 Dose: 1 each Documented by: Admin: 11/10/19 17:10 Dose: 1 each Documented by: Admin: 11/10/19 11:43 Dose: 1 each Documented by: Admin: 11/10/19 07:37 Dose: 1 each Documented by: Admin: 11/09/19 20:53 Dose: 1 each Documented by: Admin: 11/09/19 17:12 Dose: 1 each Documented by: Admin: 11/09/19 11:39 Dose: 1 each Documented by: Admin: 11/09/19 07:18 Dose: 1 each Documented by: Admin: 11/08/19 22:21 Dose: 1 each Documented by: [email or web address] Admin: 11/08/19 17:36 Dose: 1 each Documented by: ANA PAULA Docusate Sodium (Colace) 100 mg PO BID [facility] Last Admin: 11/13/19 21:23 Dose: 100 mg Documented by: Admin: 11/13/19 10:02 Dose: 100 mg Documented by: [email or web address] Admin: 11/12/19 21:47 Dose: 100 mg Documented by: Admin: 11/12/19 13:56 Dose: 100 mg Documented by: Admin: 11/11/19 21:57 Dose: 100 mg Documented by: Admin: 11/11/19 07:00 Dose: 100 mg Documented by: Admin: 11/10/19 20:52 Dose: 100 mg Documented by: Admin: 11/10/19 11:46 Dose: Not Given Documented by: CODI Non-Admin Reason: Patient Refused Admin: 11/09/19 20:54 Dose: 100 mg Documented by: Admin: 11/09/19 09:46 Dose: Not Given Documented by: CODI Non-Admin Reason: Patient Refused Admin: 11/08/19 22:21 Dose: Not Given Documented by: IMTIAZ Non-Admin Reason: Patient Refused Glucose (Insta-Glucose) 15 gm PO PRN PRN PRN Reason: Hypoglycemia Heparin Sodium (Porcine) (Heparin) 5,000 unit SQ Q12 [facility] Last Admin: 11/13/19 21:23 Dose: 5,000 unit Documented by: Admin: 11/13/19 10:02 Dose: 5,000 unit Documented by: [email or web address] Admin: 11/12/19 21:46 Dose: 5,000 unit Documented by: Admin: 11/12/19 09:01 Dose: 5,000 unit Documented by: Admin: 11/11/19 21:58 Dose: 5,000 unit Documented by: Admin: 11/11/19 06:59 Dose: 5,000 unit Documented by: Admin: 11/10/19 20:52 Dose: 5,000 unit Documented by: Admin: 11/10/19 11:49 Dose: 5,000 unit Documented by: Admin: 11/09/19 20:54 Dose: 5,000 unit Documented by: [email or web address] Admin: 11/09/19 09:45 Dose: 5,000 unit Documented by: Admin: 11/08/19 22:22 Dose: 5,000 unit Documented by: [email or web address] Magnesium Sulfate (Magnesium Sulfate) 2 gm in 50 mls @ 50 mls/hr IV UD PRN PRN Reason: Magnesium </= 1.6 Insulin Human Lispro (Humalog) 0 unit SQ ACHS [facility]; Protocol Last Admin: 11/13/19 20:01 Dose: Not Given Documented by: [email or web address] Non-Admin Reason: No Coverage Needed Admin: 11/13/19 16:51 Dose: Not Given Documented by: [email or web address] Non-Admin Reason: No Coverage Needed Admin: 11/13/19 11:37 Dose: 2 units Documented by: [email or web address] Admin: 11/13/19 07:18 Dose: Not Given Documented by: [email or web address] Non-Admin Reason: No Coverage Needed Admin: 11/12/19 21:52 Dose: Not Given Documented by: [email or web address] Non-Admin Reason: No Coverage Needed Admin: 11/12/19 16:57 Dose: Not Given Documented by: LCOURTRIGH Non-Admin Reason: No Coverage Needed Admin: 11/12/19 13:38 Dose: Not Given Documented by: LCOURTRIGH Non-Admin Reason: No Coverage Needed Admin: 11/12/19 07:22 Dose: Not Given Documented by: LCOURTRIGH Non-Admin Reason: No Coverage Needed Admin: 11/11/19 22:08 Dose: 2 units Documented by: Admin: 11/11/19 17:09 Dose: Not Given Documented by: LOGANRATTON Non-Admin Reason: No Coverage Needed Admin: 11/11/19 13:14 Dose: Not Given Documented by: LCOURTRIGH Non-Admin Reason: No Coverage Needed Admin: 11/11/19 06:50 Dose: Not Given Documented by: LCOURTRIGH Non-Admin Reason: No Coverage Needed Admin: 11/10/19 20:54 Dose: Not Given Documented by: [email or web address] Non-Admin Reason: CBG 116 Admin: 11/10/19 17:30 Dose: Not Given Documented by: LCOURTRIGH Non-Admin Reason: No Coverage Needed Admin: 11/10/19 11:49 Dose: Not Given Documented by: LCOURTRIGH Non-Admin Reason: No Coverage Needed Admin: 11/10/19 07:38 Dose: Not Given Documented by: LCOURTRIGH Non-Admin Reason: No Coverage Needed Admin: 11/09/19 20:54 Dose: 4 units Documented by: [email or web address] Admin: 11/09/19 17:15 Dose: Not Given Documented by: LCOURTRIGH Non-Admin Reason: No Coverage Needed Admin: 11/09/19 11:40 Dose: Not Given Documented by: LCOURTRIGH Non-Admin Reason: No Coverage Needed Admin: 11/09/19 07:20 Dose: Not Given Documented by: CODI Non-Admin Reason: No Coverage Needed Admin: 11/08/19 22:22 Dose: Not Given Documented by: IMTIAZ Non-Admin Reason: acc check 91, no coverage required Admin: 11/08/19 17:36 Dose: Not Given Documented by: ANA PAULA Non-Admin Reason: No Coverage Needed Nystatin (Nystatin) 500,000 units SSP QID [place] Last Admin: 11/13/19 21:23 Dose: 500,000 units Documented by: Admin: 11/13/19 16:54 Dose: 500,000 units Documented by: Admin: 11/13/19 14:04 Dose: 500,000 units Documented by: [email or web address] Ondansetron HCl (Zofran) 4 mg IV Q4HP PRN PRN Reason: Nausea And Vomiting Last Admin: 11/13/19 21:09 Dose: 4 mg Documented by: Admin: 11/13/19 07:29 Dose: 4 mg Documented by: Admin: 11/12/19 21:46 Dose: 4 mg Documented by: Admin: 11/12/19 13:55 Dose: 4 mg Documented by: Admin: 11/12/19 06:05 Dose: 4 mg Documented by: Admin: 11/11/19 06:59 Dose: 4 mg Documented by: Admin: 11/10/19 19:37 Dose: 4 mg Documented by: Admin: 11/09/19 20:56 Dose: 4 mg Documented by: Admin: 11/09/19 10:25 Dose: 4 mg Documented by: Admin: 11/08/19 19:57 Dose: 4 mg Documented by: IMTIAZ Oxycodone/Acetaminophen (Percocet 5-325 Mg) 1 tab PO Q6HP PRN; Protocol PRN Reason: Per Pain Protocol Last Admin: 11/13/19 20:00 Dose: 1 tab Documented by: Admin: 11/13/19 14:04 Dose: 1 tab Documented by: Admin: 11/13/19 07:29 Dose: 1 tab Documented by: Admin: 11/12/19 21:47 Dose: 1 tab Documented by: Admin: 11/12/19 17:00 Dose: 1 tab Documented by: Admin: 11/12/19 09:01 Dose: 1 tab Documented by: Admin: 11/11/19 21:57 Dose: 1 tab Documented by: Admin: 11/11/19 16:34 Dose: 1 tab Documented by: Admin: 11/11/19 06:59 Dose: 1 tab Documented by: Admin: 11/10/19 20:59 Dose: 1 tab Documented by: [email or web address] Admin: 11/09/19 20:53 Dose: 1 tab Documented by: [email or web address] Polyethylene Glycol (Miralax) 17 gm PO DAILYP PRN PRN Reason: Constipation Last Admin: 11/08/19 19:57 Dose: 17 gm Documented by: [email or web address] Potassium Chloride (Kdur) 40 meq PO UD PRN PRN Reason: Potassium < 3 Rifampin (Rifampin) 600 mg PO QAM@0700 [facility]; Protocol Last Admin: 11/13/19 07:19 Dose: 600 mg Documented by: [email or web address] Senna (Senokot) 2 tab PO DAILYP PRN PRN Reason: Constipation Sodium Chloride (Saline Flush) 10 ml IV Q8 [facility] Last Admin: 11/13/19 21:23 Dose: 10 ml Documented by: Admin: 11/13/19 14:04 Dose: 10 ml Documented by: Admin: 11/13/19 04:25 Dose: 10 ml Documented by: Admin: 11/12/19 20:00 Dose: 10 ml Documented by: Admin: 11/12/19 15:00 Dose: 10 ml Documented by: Admin: 11/12/19 04:44 Dose: 10 ml Documented by: Admin: 11/11/19 21:57 Dose: 10 ml Documented by: Admin: 11/11/19 15:35 Dose: 10 ml Documented by: Admin: 11/11/19 05:14 Dose: 10 ml Documented by: [email or web address] Admin: 11/10/19 22:01 Dose: 10 ml Documented by: [email or web address] Admin: 11/10/19 15:45 Dose: 10 ml Documented by: Admin: 11/10/19 05:29 Dose: 10 ml Documented by: [email or web address] Admin: 11/09/19 22:28 Dose: 10 ml Documented by: Admin: 11/09/19 17:15 Dose: 10 ml Documented by: Admin: 11/09/19 04:57 Dose: 10 ml Documented by: Admin: 11/08/19 22:22 Dose: 10 ml Documented by: IMTIAZ Sodium Chloride (Saline Flush) 10 ml IV UD PRN PRN Reason: FLUSH Torsemide (Demadex) 20 mg PO SuTuThSa@0900 [facility] Last Admin: 11/12/19 09:18 Dose: Not Given Documented by: CODI Non-Admin Reason: dialysis today Admin: 11/10/19 11:44 Dose: 20 mg Documented by: CODI Vancomycin HCl (Vancomycin Per Pharmacy) 1 order IV UD [facility] Vitamin D (Vitamin D3) 2,000 unit PO DAILY [facility] Last Admin: 11/13/19 10:02 Dose: 2,000 unit Documented by: [email or web address] Admin: 11/12/19 13:56 Dose: 2,000 unit Documented by: Admin: 11/11/19 06:59 Dose: 2,000 unit Documented by: Admin: 11/10/19 11:45 Dose: 2,000 unit Documented by: CODI Assessment and Plan - Narrative A/P Narrative: A: 1. Complicated Staphylococcus epidermidis (methicillin resistant) [MRSE] bacteremia: - likely source right chest tunnelled dialysis catheter. Presence of endovascular stent in left AV fistula could be seeded as well due to ongoing bacteremia - s/p removal of PICC line, midline on 11/08 and HD cath on 11/10 - seeding of spine and heart valves - blood Cx from 11/06 +ve (2/2 sets), 11/09 (2/2 sets) for MRSE. 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 The size of structure is 6 mm. - sec to (1) 3. T8-T9 discitis, osteomyelitis with paraspinous phlegmon - sec to (1) - no new neuro deficit noted on exam 4. T12-L1 discitis - sec to (1) - Biopsy Cx from 11/07/19 growing Staph epidermidis (methicillin resistant) - no new neuro deficit noted on exam 5. ESRD on HD - through left arm AVF and 5 centimeter Viabahn endoprosthesis (stent) placement - as the stent was placed in Jul 2019, per Nephrology it should have been vascularized with endothelium and therefore removal might be technically challenging. Therefore will add Rifampin to increase penetration into biofilmsBoth patient and nephrology team on board with this - AV fistula worked fine today, and new HD cath might not be needed Recommendations: - Continue IV Vancomycin 1 gm after each HD (per pharmacy assisted dosing). Vanc level of 19 noted from yesterday. Another Vanc level from today prior to HD pending. Check Vanc levels prior to each HD (target 15-20) - Given concerns for technically challenging possibility of endovascular stent removal, continue PO Rifampin 600 mg oral once daily to increase penetration into biofilms. will monitor weekly CMP - anticipate at least 6 weeks of IV antibiotics. No PICC line needed as Vanc can be given with HD - will plan for a YOGESH if any change in hemodynamic status (new onset heart failure, multiple days of +ve blood Cx, new conduction block) - consider Telemetry during inpatient stay will follow Sharan Vasquez MD Infectious diseases
--- NOTE | 2019-11-13 22:32 | Nephrology Progress Note ---
Subjective Patient information: Note initiated : 11/13/19 at 10:25 pm Service Date, if different from initiated Date: [] Patient: Gayla Hewitt 63 y/o F admitted on 11/08/19 for Osteomyelitis. Chief Complaint: [] Principal diagnosis: T-spine discitis / osteomyelitis Interval history: continues to have intermittent back spasms no acute events Objective - Vital Signs Vital signs: Vital Signs Temp Pulse Pulse Pulse Resp BP BP 11/13/19 22:00 14 11/13/19 21:08 36.9 C 86 14 141/86 11/13/19 21:00 36.9 C 90 117/72 11/13/19 20:57 90 129/76 11/13/19 20:25 93 H 106/66 11/13/19 19:57 92 H 128/77 11/13/19 19:29 94 H 121/77 11/13/19 18:55 95 H 129/77 11/13/19 18:27 96 H 136/82 11/13/19 17:55 36.6 C 92 H 136/81 11/13/19 16:00 36.7 C 97 H 18 132/77 11/13/19 12:00 36.8 C 98 H 113/67 11/13/19 09:33 98 H 15 11/13/19 08:00 36.7 C 87 20 127/71 11/13/19 07:15 86 18 11/13/19 03:13 36.9 C 86 20 128/72 11/12/19 23:18 36.7 C 89 22 140/81 Pulse Ox 11/13/19 22:00 11/13/19 21:08 11/13/19 21:00 11/13/19 20:57 11/13/19 20:25 11/13/19 19:57 11/13/19 19:29 11/13/19 18:55 11/13/19 18:27 11/13/19 17:55 11/13/19 16:00 94 11/13/19 12:00 97 11/13/19 09:33 11/13/19 08:00 94 11/13/19 07:15 95 11/13/19 03:13 93 11/12/19 23:18 94 Intake and Output 11/13/19 11/13/19 11/14/19 13:59 21:59 05:59 Intake Total 240 120 Output Total 1 1500 Balance 239 -1380 Intake: Nourishment/Supplement quantity 240 (ml) Oral 120 Output: # of times incontinent of urine 1 Hemodialysis UF 1500 Other: Meal Breakfast Dinner Percent of Meal Consumed 100% 10% Feeding Ability Independent Assist with Tray Set Up Nourishment/Supplement name Nepro Urine Appearance Cloudy Urine Color Light Maty Urine Odor Normal # Voids 1 Weight 70.851 kg Patient Weight 11/14/19 05:59 Weight 70.851 kg Intake & Output: Intake & Output 11/13/19 11/13/19 11/14/19 13:59 21:59 05:59 Intake Total 240 120 Output Total 1 1500 Balance 239 -1380 Weight 70.851 kg Intake: Nourishment/Supplement quantity 240 (ml) Oral 120 Output: # of times incontinent of urine 1 Hemodialysis UF 1500 Other: Meal Breakfast Dinner Percent of Meal Consumed 100% 10% Feeding Ability Independent Assist with Tray Set Up Nourishment/Supplement name Nepro Urine Appearance Cloudy Urine Color Light Maty Urine Odor Normal # Voids 1 - General Appearance General appearance: moderate distress Neck: no JVD Cardiology: no edema Neurologic: alert and oriented x3 - Lab 11/11/19 05:20 11/12/19 06:33 Most recent lab results Calcium 9.0 mg/dl (8.6-10.4) 11/12/19 06:33 Phosphorus 3.3 mg/dL (2.7-4.5) 11/12/19 06:33 Magnesium 2.1 mg/dL (1.6-2.5) 11/12/19 06:33 Assessment and Plan (1) ESRD (end stage renal disease) on dialysis Status: Chronic Priority: Medium (2) Discitis of thoracolumbar region Status: Acute Priority: High Comment: T12-L1 (3) Osteomyelitis of thoracic vertebra Status: Acute Comment: T8-9 disc adjacent endplates (4) Bacteremia Status: Acute - Narrative A/P Narrative: This is late entry for the visit on 11/13/2019 patient seen during dialysis this was a routine treatment via AVF, Qb at the time of my visit was 250. prescription as follows : 3K bath, 138Na, UF to dry weight maximum 10cc/kg/hour. Hemoglobin 9.5 11/11/2019. Aranesp 50mcg ordered today for dialysis. ESRD on hemodialysis MWF. Estimated dry weight 67.5kg She has a left upper extremity AV fistula. next dialysis Monday11/15/2019 access Right tunneled dialysis catheter removed 11/03/2019. AVF ultrasound (had stent placement in 2018, fall), stent present in the proximal venous outflow demonstrates 90% in-stent restenosis. Second 90% stenosis in the mid cephalic outflow vein and a stenosis greater than 50% in the proximal cephalic outflow vein. The patient has stenosis and she will need an angiography. This will be done once the patient is discharged by Dr. Short. Coordinated by [facility]. Staph epidermidis bacteremia with metastatic infection MRI of the spine showed T8-9 moderate discitis and osteomyelitis. Mild phlegmon in the right paraspinous soft tissue. T12-L1 mild discitis. Echocardiogram 11/07/2019 read as Normal LVEF. Mobile structure along the mitral valve which could either be a loose cord or perhaps a vegetation. Moderate aortic stenosis. LVEF 60%, grade 1 diastolic dysfunction. Blood cultures 11/09/2019 gram-positive cocci; I am not sure that the cultures were drawn correctly. rifampin was added for better biofilm penetration. she will continue on vancomycin. Hemodynamics and volume Blood pressure was controlled with nifedipine. nifedipine was discontinued when rifampin was started. for now, ok to give clonidine 0.1mg po q8hrs PRN SBP> 160. clinically euvolemic. Procedures as follow 07/29/[address] 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 06/27/2019 creation of the left upper forearm brachial artery to cephalic vein AV fistula. At that time she had the right sided TDC. Dialysis initiated March 2019 in [place] via right-sided TDC. Disc herniation status post T8-T9 laminectomy 08/2015.
[2019-11-14] MEDS: CYCLOBENZAPRINE 10 MG TABLET PO PRN ×2 (03:32→12:09)
[2019-11-14] MEDS: 0.9 % SODIUM CHLORIDE 10 ML SYRINGE IV SCH ×2 (04:55→13:02)
[2019-11-14] MEDS: ONDANSETRON 4 MG/2 ML VIAL IV PRN ×2 (07:04→14:46)
[2019-11-14] MEDS: RIFAMPIN 300 MG CAPSULE PO SCH (07:05)
[2019-11-14] MEDS: INSULIN LISPRO 1 UNIT/0.01 ML UNIT SQ SCH ×3 (07:09→18:08)
[2019-11-14] MEDS: DOCUSATE SODIUM 100 MG CAPSULE PO SCH (09:19)
[2019-11-14] MEDS: CLOPIDOGREL 75 MG TABLET PO SCH (09:19)
[2019-11-14] MEDS: CALCIUM CARBONATE 500 MG TAB.CHEW CHEWED SCH ×2 (09:20→14:40)
[2019-11-14] MEDS: HEPARIN 5,000 UNIT/ML VIAL SQ SCH (09:20)
[2019-11-14] MEDS: oxyCODONE/APAP 5/325MG TABLET PO PRN ×2 (09:20→14:46)
[2019-11-14] MEDS: NYSTATIN 500,000 UNITS/5 ML ORAL.SUSP SSP SCH ×3 (09:20→18:08)
[2019-11-14] MEDS: VITAMIN D3 1,000 UNIT TABLET PO SCH (09:20)
[2019-11-14] MEDS: CALCITONIN NASAL SPRAY 3.7ML BOTTLE NS SCH (09:20)
[2019-11-14] MEDS: TORSEMIDE 10 MG TABLET PO SCH (09:20)
[2019-11-14 09:43] LABS: Vancomycin,Random 26.6 ug/mL
--- NOTE | 2019-11-14 16:17 | Discharge Summary ---
Medical - DS: Prov Patient information: Note initiated : 11/14/19 at 4:11 pm Service Date, if different from initiated Date: [] Patient: Gayla Hewitt 63 y/o F admitted on 11/08/19 for Osteomyelitis. Chief Complaint: [] Date of admission: 11/08/19 14:42 Discharge date: 11/14/19 Primary care physician: Praneeth Tobin DO Consults: 11/08/19 Consult to Physician [CONS] Urgent Comment: Consulting Provider: Heriberto Alvarez Reason For Exam: Physician to Consult 11/08/19 15:10 Consult to Physician [CONS] Routine Comment: Consulting Provider: Sharan Vasquez Reason For Exam: Physician to Consult 11/09/19 11:00 Consult to Physician [CONS] Routine Comment: HD cath removal Consulting Provider: Maureen Julio Reason For Exam: Physician to Consult Medical - DS: Meds - Discharge Medications Active and Home Medications: Home Medications calcium carbonate 300 mg (750 mg) chewable tablet 300 mg PO TID 06/18/19 [History Confirmed 11/09/19 Last Taken Unknown] torsemide 20 mg tablet 20 mg PO QDAY #90 tab 07/24/19 [Rx Confirmed 11/09/19 Last Taken 11/05/19 10:00] clopidogrel 75 mg tablet 75 mg PO QDAY #90 tab 07/25/19 [Rx Confirmed 11/09/19 Last Taken 11/05/19 10:00] lidocaine-prilocaine 2.5 %-2.5 % topical cream 1 applic TOPICAL 3XW #5 g 09/11/19 [Rx Confirmed 11/09/19 Last Taken Unknown] calcitonin (salmon) 200 unit/actuation nasal spray 1 spray INTRANASAL (ALT) QDAY 28 Days #3.7 ml 10/03/19 [Rx Confirmed 11/09/19 Last Taken 11/06/19 10:00] nifedipine 60 mg tablet,extended release 60 mg PO QDAY #30 tab 10/16/19 [Rx Confirmed 11/09/19 Last Taken 11/08/19 08:00] cholecalciferol (vitamin D3) 50 mcg (2,000 unit) tablet 2,000 unit PO QDAY #30 tab 10/18/19 [Rx Confirmed 11/09/19 Last Taken Unknown] cyclobenzaprine 10 mg tablet 10 mg PO TID PRN #30 tab 11/05/19 [Rx Confirmed 11/09/19 Last Taken 11/05/19 16:00] oxycodone-acetaminophen 5 mg-325 mg tablet 1 tab PO BID PRN #30 tab 11/05/19 [Rx Confirmed 11/09/19 Last Taken 11/08/19 12:00] Medical - DS: Hosp Hospital Course: Discharge diagnosis * Osteomyelitis/discitis T8-9 and T12-L1: Continue antibiotic coverage as per ID recommendations. * Endocarditis with staph epidermidis bacteremia: as evidenced by vegetation on MV and (+)BC's 11/09. HD cath removed 11/10. On rifampin/vancomycin per ID * Chronic lower back pain with intermittent spasm on Flexeril * DM: Diet controlled * ESRD: We will continue HD per nephrology during swing bed stay. AV fistula 06/2019 then stent placed 07/2019 (Dr. Short/Gabriela) and is on ASA/Plavix * Anemia, chronic stable * Prophylaxis heparin * Full code Plan * Admit to swing bed * Continue antibiotics per ID-IV vancomycin/oral rifampin * HD to continue per nephrology * Prior medical condition management will be continued on home medications * Initiate aggressive PT OT nutrition support during swing bed stay * Will need outpatient transesophageal echocardiogram * Continue serial CBC monitoring/blood cultures as needed with fever Brief hospital course Ms. Refugio Burnett is a 63 year old F 63-year-old female who was is being worked up for thoracic region back pain outpatient and underwent MRI of the lumbar thoracic spine which found to have osteomyelitis discitis of T8-9 and T12-L1. Pain is been going on for over 3 months. She was brought into [facility] started on vancomycin and cefepime. Blood cultures growing Staph. Echocardiogram pending. Final biopsy was obtained as well and a PICC line placed. Blood culture obtained on the fifth and again today on the seventh at [place]. Plan was for dialysis and then removal of that port, having determined by nephrology. 11/09 Feeling well no new complaints. No overnight events. Scheduled to get hemodialysis today and then removal of HD catheter. Last blood cultures taken yesterday. Follow-up cultures tomorrow for final ID recommendations. 11/10 Feeling well. No overnight events. Sleeping well. PICC line in midline out. Awaiting removal of HD cath. Dialysis yesterday. 11/11 HD cath removed yesterday. 11/09 blood cultures also. Patient feeling well no n ew complaints. Slept well. 11/12-ongoing hemodialysis. Cultures 2 different strains of staph epidermidis. ID on board. Nephrology recommends continuing antibiotics with surveillance cultures. White count 6.1. No overnight fever chills or concerns per staff. 11/13-patient doing well. Undergoing hemodialysis. Anticipate discharge in 24 hours as per ID recommendations. However remains weak and complains of back pain and spasm limiting therapy and mobility. Case management coordinating SNF transfer versus swing bed admission. 11/14-patient transferring to swing bed for continued IV antib iotics/hemodialysis/PT OT. Discharge diagnosis: . - Time Spent with Patient Total time spent providing and/or coordinating discharge services: Greater than 30 minutes Medical - DS: Exam - Constitutional Vitals: Vital Signs Temp Pulse Pulse Pulse Resp BP BP 11/14/19 11:00 97.2 F 85 22 145/84 11/14/19 07:45 97.0 F 89 22 152/89 11/14/19 07:00 89 20 11/14/19 03:24 98.5 F 88 24 H 133/74 11/14/19 00:04 98.4 F 88 24 H 152/82 11/13/19 22:00 14 11/13/19 21:08 98.4 F 86 14 141/86 11/13/19 21:00 98.4 F 90 117/72 11/13/19 20:57 90 129/76 11/13/19 20:25 93 H 106/66 11/13/19 19:57 92 H 128/77 11/13/19 19:29 94 H 121/77 11/13/19 18:55 95 H 129/77 11/13/19 18:27 96 H 136/82 11/13/19 17:55 97.8 F 92 H 136/81 11/13/19 17:45 88 14 Pulse Ox 11/14/19 11:00 96 11/14/19 07:45 96 11/14/19 07:00 96 11/14/19 03:24 95 11/14/19 00:04 95 11/13/19 22:00 11/13/19 21:08 11/13/19 21:00 11/13/19 20:57 11/13/19 20:25 11/13/19 19:57 11/13/19 19:29 11/13/19 18:55 11/13/19 18:27 11/13/19 17:55 11/13/19 17:45 Intake and Output 11/14/19 11/14/19 11/14/19 05:59 13:59 21:59 Intake Total 640 Output Total 300 Balance 640 -300 Intake: Oral 640 Output: Void Amount 300 Other: Meal HS Snack Tuna/Crackers/Health shake Lunch Percent of Meal Consumed 100% 100% Feeding Ability Independent Independent Urine Appearance Cloudy Cloudy Urine Color Light Maty Dark Maty Urine Odor Normal Strong Weight 151 lb 1.6 oz Medical - DS: Data Labs on day of discharge: Labs from last 24 hours 11/13/19 16:09 Random Vancomycin 26.6 Vancomycin Dose Not Reportable Vanco Last Dose Time Not Reportable Preliminary micro results at discharge 11/11/19 05:25 Blood Culture - Preliminary Blood 11/11/19 05:20 Blood Culture - Preliminary Blood 11/09/19 17:06 Blood Culture - Preliminary Blood - First Staphylococcus epidermidis 11/09/19 17:00 Blood Culture - Preliminary Blood - First Staphylococcus epidermidis Staphylococcus epidermidis#2 Medical - DS: A/P - Patient/Caregiver Discharge Instructions Activity: as per physical therapy, increase activity as tolerated Diet: Renal/Consistent Carbs - Follow up Plan Disposition: Xfer As Swing Bed (TS) Prognosis: Fair Rehab Potential: Fair I certify that the patient requires SNF services: Yes Overall status at discharge: patient is progressing back to baseline
== END 2019-11-14 16:11 | disposition swing bed (61) | DRG 981 ==
LOC: MEDSUR 14:42
PROVIDERS: ADMIT Internal Medicine; ATTEND Internal Medicine

== ENCOUNTER 2022-04-11 07:22 | Inpatient (IN) ==
[2022-04-11] MEDS ORDERED: ONDANSETRON 4 MG/2 ML VIAL IV ONE (07:44)
[2022-04-11] MEDS ORDERED: fentaNYL 100 MCG/2 ML VIAL IV PRN (07:44)
--- NOTE | 2022-04-11 08:09 | Emergency Department Note ---
HPI General Chief complaint: Abdominal Pain Stated complaint: Lower Quadrant Pain Time Seen by Provider: 04/11/22 07:25 Source: patient Mode of arrival: wheelchair History of Present Illness HPI Narrative: Narrative: This is a 66-year-old female ESRD on hemodialysis presents to the emergency department with right lower quadrant pain that started yesterday evening. She has associated diarrhea and vomiting. She reports her pain is moderate to severe. It is nonradiating she denies any hematemesis or melena or bright red blood. No fevers. Prior surgical history of hysterectomy. Related Data Home Medications Medication Instructions Recorded Confirmed aspirin 81 mg tablet,delayed 81 mg PO QDAY 12/19/19 04/12/22 release (Adult Low Dose Aspirin) clopidogrel 75 mg tablet (Plavix) 75 mg PO QDAY 04/17/20 04/11/22 Previous Rx's Medication Instructions Recorded cholecalciferol (vitamin D3) 100 100 mcg PO QDAY #90 tabs 11/16/20 mcg (4,000 unit) tablet cyclobenzaprine 10 mg tablet 10 mg PO TID PRN muscle spasm #90 08/11/21 tabs calcium acetate(phosphat bind) 1,334 mg (10 mL) PO TID 3 months 09/13/21 (Phoslyra) #2,700 mL ondansetron 4 mg disintegrating 4 mg PO QDAY PRN nausea and 10/14/21 tablet vomiting #30 tabs Allergies Allergy/AdvReac Type Severity Reaction Status Date / Time vancomycin AdvReac Mild Itching Verified 04/11/22 15:05 Review of Systems ROS ROS Narrative: Narrative: All systems ED: reviewed and negative except as stated. [facility] Narrative Patient History Narrative: Narrative: Medical/Surgical/Family History All Active Problems (Updated 04/12/22 @ 18:19 by Jerzy Nayak MD) Melena (Acute) Abdominal pain (Acute) CAD (coronary artery disease) (Acute) Melena (Acute) Abdominal pain (Acute) Nausea (Chronic) Osteoporosis (Acute) Influenza vaccination declined (Acute) Medicare annual wellness visit, subsequent (Acute) Muscle pain (Acute) Bilateral hand pain (Acute) Hypotension (Acute) Thrombosis due to arteriovenous access device for hemodialysis (Acute) Sciatica (Acute) Chronic back pain (Acute) ESRD (end stage renal disease) on dialysis (Chronic) Bacteremia (Acute) Anemia in ESRD (end-stage renal disease) (Chronic) Hyperparathyroidism due to end stage renal disease on dialysis (Chronic) Stenosis of AV fistula (Acute) Discitis of thoracic region (Acute) Positive depression screening (Acute) Diabetic peripheral neuropathy (Chronic) Acute exacerbation of chronic low back pain (Acute) Compression fracture of lumbar vertebra (Chronic) Compression fracture of body of thoracic vertebra (Chronic) Strain of lumbar region (Acute) Arteriovenous fistula for hemodialysis in place, primary (Chronic) Vision loss of right eye (Chronic) ESRD on hemodialysis (Chronic) Right sided weakness (Chronic) CKD (chronic kidney disease) (Chronic) Risk for falls (Chronic) Diabetes (Chronic) Bone disease (Chronic) Able to function independently (Chronic) Disruptive behavior (Chronic) Retinal detachment (Chronic) Nephropathy (Chronic) ESRD (end stage renal disease) (Chronic) Hx of transfusion of packed red blood cells (Chronic) Congestive heart failure (Chronic) Blindness of right eye (Chronic) Weakness of right lower extremity (Chronic) Disc herniation (Chronic) Cord compression (Chronic) Essential hypertension (Chronic ~2014) Repeated falls (Chronic) Difficulty in walking, not elsewhere classified (Chronic) Rhabdomyolysis (Chronic) Muscle weakness (Chronic) Hyperlipidemia (Chronic) Right hip pain (Chronic) Kidney failure (Chronic) Joint pain (Chronic) High cholesterol (Chronic) High blood pressure (Chronic) Type 2 diabetes mellitus (Chronic) Muscle pain (Chronic) Anemia (Chronic) Medical History (Updated 04/12/22 @ 18:19 by Jerzy Nayak MD) Able to function independently Acute exacerbation of chronic low back pain Possibly secondary to compression fractures from T11-L2 versus exacerbation of chronic pain from degenerative disc disease. We will get a DEXA scan. Start calcitonin daily x1 month. Okay to continue cyclobenzaprine as needed. Percocet 5-325 mg p.o. twice daily as needed #30 given. This is for short- term use only. Risks of this medication discussed with patient, patient is responsible, and I believe at low risk for abuse. OXYACETYLENE BURNER also reviewed and one prior appropriate prescription in June for [place]. Refer to interventional pain management. Follow-up 1 month. Anemia Managed by nephrology with Aranesp once weekly Arteriovenous fistula for hemodialysis in place, primary Placed June 2019. Blindness of right eye Bone disease CKD (chronic kidney disease) Compression fracture of body of thoracic vertebra Moderate T11 and T12. Nontraumatic. Compression fracture of lumbar vertebra Mild L1 and L2. Nontraumatic. Congestive heart failure Cord compression Diabetes Diabetic peripheral neuropathy Good foot care discussed. Patient advised to check her feet daily for wounds or ulcers. Difficulty in walking, not elsewhere classified Disc herniation Discitis of thoracic region T8-9 Completing 8-week course of IV vancomycin and p.o. rifampin this week Follow-up with infectious disease today Pain is now mild and well controlled with ketorolac as needed Discitis of thoracolumbar region T8-T9, T12-L1. Resolved. Pain is now mild and well controlled with ketorolac as needed Disruptive behavior ESRD (end stage renal disease) ESRD on hemodialysis On dialysis Monday Essential hypertension (~2014) Labile Becomes mildly hypotensive during dialysis requiring midodrine High blood pressure High cholesterol History of retinal detachment Corrected surgically History of rhabdomyolysis I believe this is resolved, but will check CPK before restarting the Crestor Hx of transfusion of packed red blood cells Hyperlipidemia Joint pain Kidney failure Medicare annual wellness visit, subsequent Muscle pain Muscle weakness Nephropathy Osteomyelitis of lumbar vertebra T12-L1 disc adjacent endplates Osteomyelitis of thoracic vertebra T8-9 disc adjacent endplates Positive depression screening PHQ 9 score was 18 today and patient noted that the symptoms were very difficult. This is acute, secondary to her back pain addressed above. She has no history of depression. Notably, suicidal ideation is negative. This patient is not depressed. Repeated falls Retinal detachment Rhabdomyolysis Right hip pain Right sided weakness Risk for falls S/P angiogram of extremity (~07/29/19) Fistulogram by Dr. Short Type 2 diabetes mellitus Reversed with diet and weight loss Vision loss of right eye Cataract Weakness of right lower extremity Surgical History History of ankle surgery (~2014) History of (~1985) History of colonoscopy (~2013) History of eye surgery (~2014) History of laminectomy (~08/2015) T8-T9 History of spinal surgery (~2014) History of surgery (~2013) Hemorrhoids/Polyps Status post incision and drainage (~2015) gluteal abscess Family History Mother Arthritis Type 2 diabetes mellitus High blood pressure Father Prostate cancer Social History Smoking Status: Never smoker Alcohol Intake Frequency: does not drink Substance Use: does not use Exam Narrative Narrative: Narrative: Vital signs noted General: Awake. Alert. No distress. HEENT: NCAT PERRL EOMI. No conjunctivitis. Membranes moist. Neck: Supple Cardiovascular: RRR. No murmur. No rubs. No gallops. Respiratory: No respiratory distress. Breath sounds equal. Lungs clear. Gastrointestinal: Soft. Right lower quadrant tenderness to palpation there is no guarding rigidity or other peritoneal signs Gonzalez sign is negative Musculoskeletal: AV fistula no other deformity Skin: Warm. Dry. No rash Course Vital Signs Vital signs: Vital Signs Temperature 98.1 F 04/11/22 07:27 Pulse Rate 98 H 04/11/22 07:27 Respiratory Rate 18 04/11/22 07:27 Blood Pressure 135/79 04/11/22 07:27 Pulse Oximetry (%) 99 04/11/22 07:27 Oxygen Delivery Method 04/11/22 07:27 Temperature 98.5 F 04/12/22 16:00 Pulse Rate 99 H 04/12/22 16:00 Respiratory Rate 20 04/12/22 16:00 Blood Pressure 107/65 04/12/22 16:00 Pulse Oximetry (%) 91 04/12/22 16:00 Oxygen Delivery Method 04/12/22 16:00 [facility] MDM Narrative Medical decision making narrative: Narrative: Patient presents with abdominal pain nausea vomiting diarrhea. On exam she does have some right lower quadrant tenderness palpation she is without any peritoneal signs. CT scan was obtained without any IV contrast based on patient's habitus and that she is ESRD with some intrinsic kidney function I did not want to give her contrast. It was concerning for inflammatory changes of the ascending colon possibly neoplasm interpretation by the radiologist as above. Patient has elevated white blood cell count. While in the emergency department the patient did have several loose stools that appear to be melanotic. Rectal exam was then performed there is no identifiable bleeding lesions and there was no bright red blood. I did speak with Dr. Medina gastroenterology who recommend upper endoscopy. Patient did have a screening colonoscopy in November of last year which showed no concerning findings. Patient remained hemodynamically stable her potassium is 6.1. She will be admitted to the hospitalist. Ultrasound-guided peripheral IV was placed initially in brachial vein but this blew and then a line was placed in the patient's right external jugular. Lab Data Result diagrams: 04/12/22 05:14 04/12/22 05:14 Labs: Lab Results 04/11/22 04/11/22 04/11/22 Range/Units 10:03 10:09 10:09 WBC 15.7 H (4.5-11.0) K/mcL RBC 5.14 (3.59-5.38) M/mcL Hgb 16.5 H (11.2-15.7) g/dL Hct 52.5 H (34.1-44.9) % POC Hct 50.0 H (36-48) MCV 102.1 H (80.0-100.0) fL MCH 32.1 (26.0-34.0) pg MCHC 31.4 (31.0-36.0) g/dL RDW 13.0 (11.5-14.5) % Plt Count 226 (140-440) K/mcL MPV 10.7 H (7.4-10.4) fL Immature Gran % (Auto) 0.5 (0.0-0.5) % Neut % (Auto) 93.5 H (38.0-78.0) % Lymph % (Auto) 3.0 L (15.5-49.0) % [place] % (Auto) 2.7 (1.0-12.0) % Eos % (Auto) 0.1 (0.0-7.0) % Baso % (Auto) 0.2 (0.0-2.0) % Lymph # (Auto) 0.47 L (1.50-4.80) K/mcL [place] # (Auto) 0.42 (0.10-0.90) K/mcL Eos # (Auto) 0.02 (0.00-0.70) K/mcL Baso # (Auto) 0.03 (0.00-0.30) K/mcL Immature Gran # 0.08 H (0.00-0.05) K/mcl Absolute Neutrophils 14.77 H (1.80-8.00) K/mcL PT (11.9-14.5) sec INR (0.9-1.1) VBG Lactic Acid (0.5-2.0) mmol/L POC Sodium 135 (133-145) Sodium (133-145) mmol/L POC Potassium 6.1 H* (3.3-5.1) Potassium (3.3-5.1) mmol/L POC Chloride 107 (96-108) Chloride (96-108) mmol/L Carbon Dioxide (22-30) mmol/L POC Total CO2 22.0 (22-30) Anion Gap (8.0-16.0) POC BUN 84 H (6-20) BUN (8-23) mg/dL Creatinine (0.6-1.1) mg/dL POC Creatinine 11.9 H* (0.6-1.2) GFR Calculation Glucose (70-105) mg/dL POC Glucose 125 H (70-105) Calcium (8.6-10.4) mg/dL POC WB Ioniz Calcium 0.76 L (1.16-1.32) Total Bilirubin 0.5 (0.1-1.0) mg/dL Direct Bilirubin < 0.2 (0-0.3) mg/dL AST 30 (<32) U/L ALT 13 (<40) U/L Alkaline Phosphatase 79 (39-117) U/L Total Protein 7.7 (5.9-8.4) gm/dL Albumin 4.2 (3.2-5.2) gm/dL Globulin 3.5 (2.2-3.7) gm/dL Albumin/Globulin Ratio (1.0-2.3) Lipase 74 H (7-60) U/L 04/11/22 04/11/22 04/11/22 Range/Units 13:30 14:30 14:30 WBC (4.5-11.0) K/mcL RBC (3.59-5.38) M/mcL Hgb (11.2-15.7) g/dL Hct (34.1-44.9) % POC Hct (36-48) MCV (80.0-100.0) fL MCH (26.0-34.0) pg MCHC (31.0-36.0) g/dL RDW (11.5-14.5) % Plt Count (140-440) K/mcL MPV (7.4-10.4) fL Immature Gran % (Auto) (0.0-0.5) % Neut % (Auto) (38.0-78.0) % Lymph % (Auto) (15.5-49.0) % [place] % (Auto) (1.0-12.0) % Eos % (Auto) (0.0-7.0) % Baso % (Auto) (0.0-2.0) % Lymph # (Auto) (1.50-4.80) K/mcL [place] # (Auto) (0.10-0.90) K/mcL Eos # (Auto) (0.00-0.70) K/mcL Baso # (Auto) (0.00-0.30) K/mcL Immature Gran # (0.00-0.05) K/mcl Absolute Neutrophils (1.80-8.00) K/mcL PT 15.1 H (11.9-14.5) sec INR 1.1 (0.9-1.1) VBG Lactic Acid 2.7 H (0.5-2.0) mmol/L POC Sodium (133-145) Sodium 139 (133-145) mmol/L POC Potassium (3.3-5.1) Potassium 5.5 H (3.3-5.1) mmol/L POC Chloride (96-108) Chloride 96 (96-108) mmol/L Carbon Dioxide 21 L (22-30) mmol/L POC Total CO2 (22-30) Anion Gap 22.0 H (8.0-16.0) POC BUN (6-20) BUN 60 H (8-23) mg/dL Creatinine 10.5 H* (0.6-1.1) mg/dL POC Creatinine (0.6-1.2) GFR Calculation 3 Glucose 136 H (70-105) mg/dL POC Glucose (70-105) Calcium 8.2 L (8.6-10.4) mg/dL POC WB Ioniz Calcium (1.16-1.32) Total Bilirubin 0.5 (0.1-1.0) mg/dL Direct Bilirubin (0-0.3) mg/dL AST 13 (<32) U/L ALT 9 (<40) U/L Alkaline Phosphatase 76 (39-117) U/L Total Protein 7.3 (5.9-8.4) gm/dL Albumin 4.1 (3.2-5.2) gm/dL Globulin 3.2 (2.2-3.7) gm/dL Albumin/Globulin Ratio 1.3 (1.0-2.3) Lipase (7-60) U/L 04/11/22 Range/Units 15:15 WBC 18.2 H (4.5-11.0) K/mcL RBC 4.56 (3.59-5.38) M/mcL Hgb 14.6 (11.2-15.7) g/dL Hct 45.0 H (34.1-44.9) % POC Hct (36-48) MCV 98.7 (80.0-100.0) fL MCH 32.0 (26.0-34.0) pg MCHC 32.4 (31.0-36.0) g/dL RDW 13.1 (11.5-14.5) % Plt Count 344 (140-440) K/mcL MPV 10.0 (7.4-10.4) fL Immature Gran % (Auto) 0.5 (0.0-0.5) % Neut % (Auto) 91.6 H (38.0-78.0) % Lymph % (Auto) 3.7 L (15.5-49.0) % [place] % (Auto) 4.0 (1.0-12.0) % Eos % (Auto) 0 (0.0-7.0) % Baso % (Auto) 0.2 (0.0-2.0) % Lymph # (Auto) 0.68 L (1.50-4.80) K/mcL [place] # (Auto) 0.72 (0.10-0.90) K/mcL Eos # (Auto) 0 (0.00-0.70) K/mcL Baso # (Auto) 0.04 (0.00-0.30) K/mcL Immature Gran # 0.09 H (0.00-0.05) K/mcl Absolute Neutrophils 16.74 H (1.80-8.00) K/mcL PT (11.9-14.5) sec INR (0.9-1.1) VBG Lactic Acid (0.5-2.0) mmol/L POC Sodium (133-145) Sodium (133-145) mmol/L POC Potassium (3.3-5.1) Potassium (3.3-5.1) mmol/L POC Chloride (96-108) Chloride (96-108) mmol/L Carbon Dioxide (22-30) mmol/L POC Total CO2 (22-30) Anion Gap (8.0-16.0) POC BUN (6-20) BUN (8-23) mg/dL Creatinine (0.6-1.1) mg/dL POC Creatinine (0.6-1.2) GFR Calculation Glucose (70-105) mg/dL POC Glucose (70-105) Calcium (8.6-10.4) mg/dL POC WB Ioniz Calcium (1.16-1.32) Total Bilirubin (0.1-1.0) mg/dL Direct Bilirubin (0-0.3) mg/dL AST (<32) U/L ALT (<40) U/L Alkaline Phosphatase (39-117) U/L Total Protein (5.9-8.4) gm/dL Albumin (3.2-5.2) gm/dL Globulin (2.2-3.7) gm/dL Albumin/Globulin Ratio (1.0-2.3) Lipase (7-60) U/L Discharge Plan Patient/Caregiver Discharge Instructions Pt seen by MECHANICAL REPAIR WORKER/PA only: No Clinical Impression: Melena, Abdominal pain Patient Disposition: Xfer As Outpt/Obs ([facility]) Condition: Fair Discharge Date/Time: 04/11/22 16:28 Discharge Comment: to room 133 @1630
[2022-04-11] MEDS ORDERED: ONDANSETRON 4 MG ODT TABLET SL ONE ×2 (09:05→09:06)
[2022-04-11] MEDS ORDERED: fentaNYL 100 MCG/2 ML VIAL IV ONE (09:06)
--- NOTE | 2022-04-11 09:58 | Cat Scan Report ---
INDICATION: RLQ pain, ESRD COMPARISON: Previous lumbar MRI scan dated 10/24/2019 TECHNIQUE: Axial images were obtained through the abdomen and pelvis. Sagittally and coronally reformatted images. FINDINGS: Lung bases:Pulmonary parenchymal density of both lung bases. Findings are most consistent with atelectasis. There is severe calcified coronary artery disease. Liver:Negative to the limits of noncontrast enhanced examination. Liver contour is smooth without evidence for cirrhosis Gallbladder, bilary:No calcified gallstones. No gallbladder wall thickening. No pericholecystic fluid. No dilated bile ducts Spleen:No splenomegaly Pancreas:No pancreatic mass. No peripancreatic abnormality Adrenal glands:Negative Kidneys,ureters,bladder:Kidneys are atrophic bilaterally. There is no hydronephrosis. No renal calculi. No detectable mass on this noncontrast enhanced examination. No hydroureter. No ureteral calculus. Urinary bladder is collapsed Gastrointestinal:Mild sigmoid colon diverticulosis. No evidence for diverticulitis. A sending colon is diffusely abnormal. There is wall thickening irregular luminal gas. There is mild pericolonic infiltration. Appearance is considered atypical for inflammatory disease and malignancy of the ascending colon is possible. Colonoscopy is recommended. Negative small bowel. No mechanical small bowel obstruction. No bowel wall thickening. No focal abnormality. Negative stomach and duodenum. No focal abnormality. Appendix: The appendix is negative Vascular:Mild calcification of the abdominal aorta. No abdominal aortic aneurysm Lymphatic:No retroperitoneal adenopathy. No significant mesenteric adenopathy. Mesentery, peritoneum:No free intraperitoneal fluid. No intra-abdominal abscess. No pneumoperitoneum Reproductive:Uterus is atrophic and anteflexed. There are calcifications. No adnexal mass Musculoskeletal:Mild L4 superior endplate compression is new since MRI scan dated 10/24/2019 Sacrum is negative. No insufficiency fracture. Pelvis is negative. There is no fracture or lytic lesion. Hips are negative. No anterior abdominal wall or inguinal hernia. IMPRESSION: 1. Abnormal descending colon with wall thickening and luminal irregularity. Mild surrounding infiltration. Parents is suspicious for neoplasm and colonoscopy is recommended 2. Bilateral renal atrophy. No hydronephrosis. 3. Coronary artery calcification 4. Mild sigmoid diverticulosis. No evidence for diverticulitis 5. Mild L4 compression deformity. This is new since 10/24/2019 The exam was performed using radiation dose optimization techniques including, but not limited to, automated exposure control, adjustment of the mA and/or kV according to patient size and use of iterative reconstruction technique. Interpreted and Authenticated by: Praneeth Davies 04/11/22
[2022-04-11 10:06] LABS: POC Calcium, Ionized 0.76 (1.16-1.32); POC Creatinine 11.9 (0.6-1.2); POC Potassium 6.1 (3.3-5.1)
[2022-04-11] MEDS ORDERED: CYCLOBENZAPRINE 10 MG TABLET PO ONE (11:23)
[2022-04-11] MEDS ORDERED: AMOXICILLIN/POTASSIUM CLAV 875 MG TABLET PO ONE (11:23)
[2022-04-11 11:28] LABS: ALT/SGPT 13 U/L (<40); AST/SGOT 30 U/L (<32); Albumin 4.2 gm/dL (3.2-5.2); Alkaline Phosphatase 79 U/L (39-117); Bilirubin,Direct < 0.2 mg/dL (0-0.3); Bilirubin,Total 0.5 mg/dL (0.1-1.0); Globulin 3.5 gm/dL (2.2-3.7)
[2022-04-11 12:34] LABS: Basophils # (Auto) 0.03 K/mcL (0.00-0.30); Basophils % (Auto) 0.2 % (0.0-2.0); Eosinophils # (Auto) 0.02 K/mcL (0.00-0.70); Eosinophils % (Auto) 0.1 % (0.0-7.0); Hematocrit 52.5 % (34.1-44.9); Hemoglobin 16.5 g/dL (11.2-15.7); Lymphocytes # (Auto) 0.47 K/mcL (1.50-4.80); Mean Cell Volume 102.1 fL (80.0-100.0); Mean Corpuscular HGB Conc 31.4 g/dL (31.0-36.0); Mean Platelet Volume 10.7 fL (7.4-10.4); Monocytes # (Auto) 0.42 K/mcL (0.10-0.90); Monocytes % (Auto) 2.7 % (1.0-12.0); Neutrophils % (Auto) 93.5 % (38.0-78.0); Platelet Count 226 K/mcL (140-440); RBC 5.14 M/mcL (3.59-5.38); WBC 15.7 K/mcL (4.5-11.0)
[2022-04-11] MEDS ORDERED: 0.9 % SODIUM CHLORIDE 250 ML IV SCH (13:15)
--- NOTE | 2022-04-11 14:15 | Nephrology Consult Note ---
HPI Data of Consult Patient: known to practice within the last 3 years Consult date: 04/11/22 Requesting physician: Tanner Julio Primary Care Provider: Praneeth Tobin DO Consult Narrative Chief complaint: Abdominal pain Reason for consult: End stage renal disease on hemodialysis History of present illness: Gayla Huff is a 66-year-old female with end stage renal disease on hemodialysis, chronic anemia due to ESRD, hypertension, diabetes mellitus type 2 admitted on 04/11/22. She presented to [facility] ED for abdominal pain nausea, vomiting and diarrhea. Labs were significant for WBC 15.7, K 6.1, lactic acid 2.7, lipase 74. CT abdomen pelvis wo con reported as abnormal descending colon with wall thickening and luminal irregularity with mild surrounding infiltration, suspicious for neoplasm and colonoscopy is recommended. In ED, she had several loose stools that appeared to be melanotic. Nephrology cons ultation was requested for end stage renal disease. cc:: CC: Constitutional Constitutional: Present fatigue and weakness EENT Nose, mouth and throat: Absent nasal congestion or sore throat Cardiovascular Cardiovascular: Absent chest pain or palpatations Respiratory Respiratory: Absent dyspnea or wheezing Gastrointestinal Gastrointestinal: Present abdominal pain, diarrhea, hematochezia, nausea and vomiting Genitourinary Genitourinary: Absent dysuria or hematuria Musculoskeletal Musculoskeletal: Absent joint swelling Integumentary Integumentary: Absent rash or wounds Neurological Neurological: Present weakness; Absent confusion Psychiatric Psychiatric: Absent anxiety or panic attacks Hematologic/Lymphatic Hematologic/Lymphatic: Absent easy bleeding or easy bruising Allergic/Immunologic Allergic/Immunologic: Absent tongue swelling or uticaria PFSH PFSH All Active Problems (Updated 04/11/22 @ 14:15 by Raul Kraus MD) Nausea (Chronic) Osteoporosis (Acute) Influenza vaccination declined (Acute) Medicare annual wellness visit, subsequent (Acute) Muscle pain (Acute) Bilateral hand pain (Acute) Hypotension (Acute) Thrombosis due to arteriovenous access device for hemodialysis (Acute) Sciatica (Acute) Chronic back pain (Acute) ESRD (end stage renal disease) on dialysis (Chronic) Bacteremia (Acute) Anemia in ESRD (end-stage renal disease) (Chronic) Hyperparathyroidism due to end stage renal disease on dialysis (Chronic) Stenosis of AV fistula (Acute) Discitis of thoracic region (Acute) Positive depression screening (Acute) Diabetic peripheral neuropathy (Chronic) Acute exacerbation of chronic low back pain (Acute) Compression fracture of lumbar vertebra (Chronic) Compression fracture of body of thoracic vertebra (Chronic) Strain of lumbar region (Acute) Arteriovenous fistula for hemodialysis in place, primary (Chronic) Vision loss of right eye (Chronic) ESRD on hemodialysis (Chronic) Right sided weakness (Chronic) CKD (chronic kidney disease) (Chronic) Risk for falls (Chronic) Diabetes (Chronic) Bone disease (Chronic) Able to function independently (Chronic) Disruptive behavior (Chronic) Retinal detachment (Chronic) Nephropathy (Chronic) ESRD (end stage renal disease) (Chronic) Hx of transfusion of packed red blood cells (Chronic) Congestive heart failure (Chronic) Blindness of right eye (Chronic) Weakness of right lower extremity (Chronic) Disc herniation (Chronic) Cord compression (Chronic) Essential hypertension (Chronic ~2014) Repeated falls (Chronic) Difficulty in walking, not elsewhere classified (Chronic) Rhabdomyolysis (Chronic) Muscle weakness (Chronic) Hyperlipidemia (Chronic) Right hip pain (Chronic) Kidney failure (Chronic) Joint pain (Chronic) High cholesterol (Chronic) High blood pressure (Chronic) Type 2 diabetes mellitus (Chronic) Muscle pain (Chronic) Anemia (Chronic) Medical History (Updated 04/11/22 @ 14:15 by Raul Kraus MD) Able to function independently Acute exacerbation of chronic low back pain Possibly secondary to compression fractures from T11-L2 versus exacerbation of chronic pain from degenerative disc disease. We will get a DEXA scan. Start calcitonin daily x1 month. Okay to continue cyclobenzaprine as needed. Percocet 5-325 mg p.o. twice daily as needed #30 given. This is for short- term use only. Risks of this medication discussed with patient, patient is responsible, and I believe at low risk for abuse. TELEPHONE STERIL[employer]ER also reviewed and one prior appropriate prescription in June for [place]. Refer to interventional pain management. Follow-up 1 month. Anemia Managed by nephrology with Aranesp once weekly Arteriovenous fistula for hemodialysis in place, primary Placed June 2019. Blindness of right eye Bone disease CKD (chronic kidney disease) Compression fracture of body of thoracic vertebra Moderate T11 and T12. Nontraumatic. Compression fracture of lumbar vertebra Mild L1 and L2. Nontraumatic. Congestive heart failure Cord compression Diabetes Diabetic peripheral neuropathy Good foot care discussed. Patient advised to check her feet daily for wounds or ulcers. Difficulty in walking, not elsewhere classified Disc herniation Discitis of thoracic region T8-9 Completing 8-week course of IV vancomycin and p.o. rifampin this week Follow-up with infectious disease today Pain is now mild and well controlled with ketorolac as needed Discitis of thoracolumbar region T8-T9, T12-L1. Resolved. Pain is now mild and well controlled with ketorolac as needed Disruptive behavior ESRD (end stage renal disease) ESRD on hemodialysis On dialysis Monday Essential hypertension (~2014) Labile Becomes mildly hypotensive during dialysis requiring midodrine High blood pressure High cholesterol History of retinal detachment Corrected surgically History of rhabdomyolysis I believe this is resolved, but will check CPK before restarting the Crestor Hx of transfusion of packed red blood cells Hyperlipidemia Joint pain Kidney failure Medicare annual wellness visit, subsequent Muscle pain Muscle weakness Nephropathy Osteomyelitis of lumbar vertebra T12-L1 disc adjacent endplates Osteomyelitis of thoracic vertebra T8-9 disc adjacent endplates Positive depression screening PHQ 9 score was 18 today and patient noted that the symptoms were very difficult. This is acute, secondary to her back pain addressed above. She has no history of depression. Notably, suicidal ideation is negative. This patient is not depressed. Repeated falls Retinal detachment Rhabdomyolysis Right hip pain Right sided weakness Risk for falls S/P angiogram of extremity (~07/29/19) Fistulogram by Dr. Short Type 2 diabetes mellitus Reversed with diet and weight loss Vision loss of right eye Cataract Weakness of right lower extremity Surgical History History of ankle surgery (~2014) History of (~1985) History of colonoscopy (~2013) History of eye surgery (~2014) History of laminectomy (~08/2015) T8-T9 History of spinal surgery (~2014) History of surgery (~2013) Hemorrhoids/Polyps Status post incision and drainage (~2015) gluteal abscess Family History Mother Arthritis Type 2 diabetes mellitus High blood pressure Father Prostate cancer Social History marital status: occupational status: retired and disabled smoking status: Never smoker alcohol intake frequency: does not drink substance use type: does not use MEDS/ALLERGIES Home Medications and Allergies Home Medications Medication Instructions Recorded Confirmed Type aspirin 81 mg tablet,delayed 81 mg PO QDAY 12/19/19 10/14/21 History release (Adult Low Dose Aspirin) acetaminophen 500 mg tablet 1,000 mg PO Q6H PRN Pain 04/17/20 10/14/21 History (Tylenol Extra Strength) clopidogrel 75 mg tablet (Plavix) 75 mg PO QDAY 04/17/20 10/14/21 History nut.tx.impaired renal fxn,soy 0.09 each PO 04/29/20 10/14/21 History gram-2 kcal/mL oral liquid ([facility] Renal 2 [place]) lanthanum 750 mg oral powder packet 750 mg PO BID #90 ea 06/17/20 10/14/21 Rx torsemide 20 mg tablet 20 mg PO .QOD #60 tabs 06/17/20 10/14/21 Rx cholecalciferol (vitamin D3) 100 100 mcg PO QDAY #90 tabs 11/16/20 10/14/21 Rx mcg (4,000 unit) tablet cyclobenzaprine 10 mg tablet 10 mg PO TID PRN muscle spasm #90 08/11/21 10/14/21 Rx tabs calcium acetate(phosphat bind) 1,334 mg (10 mL) PO TID 3 months 09/13/21 10/14/21 Rx (Phoslyra) #2,700 mL ondansetron 4 mg disintegrating 4 mg PO QDAY PRN nausea and 10/14/21 10/14/21 Rx tablet vomiting #30 tabs Allergies Allergy/AdvReac Type Severity Reaction Status Date / Time vancomycin AdvReac Mild Itching Verified 04/11/22 15:05 Physical Examination Vital Signs Vital signs: Temp Pulse Resp BP Pulse Ox O2 Del Method 98.1 F 110 H 18 123/65 100 04/11/22 07:27 04/11/22 13:16 04/11/22 07:27 04/11/22 10:23 04/11/22 13:16 04/11/22 07:27 General Appearance General appearance: chronically ill and fatigue EENT EENT: mucous membranes moist Respiratory Respiratory: clear Cardiovascular Cardiology: edema Gastrointestinal Gastrointestinal: tenderness Integumentary Integumentary: no rash and warm and dry Neurologic Neurologic: no focal deficit and alert and oriented x3 Musculoskeletal Musculoskeletal: no deformities Psychiatric Psychiatric: mood/affect appropriate and cooperative Results Lab Results Result Diagrams: 04/11/22 10:09 A/P Assessment and plan (1) ESRD (end stage renal disease) on dialysis: Assessment and plan: Gayla Huff is a 66-year-old female with end stage renal disease on hemodialysis, admitted on 04/11/22. She presented to [facility] ED for abdominal pain nausea, vomiting and diarrhea. Labs were significant for WBC 15.7, K 6.1, lactic acid 2.7, lipase 74. CT abdomen pelvis wo con reported as abnormal desce nding colon with wall thickening and luminal irregularity with mild surrounding infiltration, suspicious for neoplasm and colonoscopy is recommended. In ED, she had several loose stools that appeared to be melanotic. Nephrology consultation was requested for end stage renal disease. End stage renal disease on hemodialysis on MWF. Hyperkalemia associated with acute gastrointestinal bleeding and ESRD. Recommendations/Plan: Hemodialysis today then on MWF. Status: Chronic Time Spent With Patient Time: Total time spent is greater than 50% in coordination of care (as documented) at patient's floor/unit and/or counseling patient:
[2022-04-11] MEDS ORDERED: KETAMINE 50 MG/ML ML IV PRN ×2 (14:58→18:27)
[2022-04-11] MEDS ORDERED: MIDAZOLAM 2 MG/2 ML VIAL IV SCH ×2 (15:00→18:30)
[2022-04-11] MEDS ORDERED: PROPOFOL 200 MG/20 ML VIAL IV SCH ×2 (15:00→18:30)
[2022-04-11 15:35] LABS: Basophils # (Auto) 0.04 K/mcL (0.00-0.30); Basophils % (Auto) 0.2 % (0.0-2.0); Eosinophils # (Auto) 0 K/mcL (0.00-0.70); Eosinophils % (Auto) 0 % (0.0-7.0); Hemoglobin 14.6 g/dL (11.2-15.7); Lymphocytes # (Auto) 0.68 K/mcL (1.50-4.80); Lymphocytes % (Auto) 3.7 % (15.5-49.0); Mean Cell Volume 98.7 fL (80.0-100.0); Mean Corpuscular HGB Conc 32.4 g/dL (31.0-36.0); Monocytes # (Auto) 0.72 K/mcL (0.10-0.90); Neutrophils % (Auto) 91.6 % (38.0-78.0); Platelet Count 344 K/mcL (140-440); RBC 4.56 M/mcL (3.59-5.38); Red Cell Distribution Width 13.1 % (11.5-14.5); WBC 18.2 K/mcL (4.5-11.0)
[2022-04-11 15:39] LABS: INR 1.1 (0.9-1.1); Prothrombin Time 15.1 sec (11.9-14.5)
--- NOTE | 2022-04-11 15:50 | Internal Med History&Physical ---
HPI History of Present Illness Patient information: Note initiated : 04/11/22 at 3:45 pm Service Date, if different from initiated Date: [as above] Patient: Gayla Hewitt a 66 y/o F admitted on for [place] Pain. Chief Complaint: [Abdominal pain associated w/ n/v] Chief complaint: Abdominal pain History of present illness: Ms. Refugio Burnett is a 66 year old F with a past medical history significant for end-stage renal disease on hemodialysis, prior complication of her AV fistula, anxiety/depression, osteoporosis, and CAD who presents to the hospital with 24-hour history of abdominal pain, associated with nausea and vomiting as well as diarrhea. The patient states that she was in her usual state of health until yesterday evening. She ordered pizza. After eating dinner, she acutely felt unwell. She had nausea, vomiting, and diarrhea. She states that she vomited at least 3 times. She was unable to sleep all night. This morning, she was being driven to her dialysis appointment when the [employer] truck driver thought she looked unwell. She tried to call the dialysis center nurse however no one answered. It was decided that she should come to the ER for further management and evaluation. On arrival, she was hemodynamically stable and afebrile. The patient was hospitalized for further management and evaluation of her suspected melena. Review of Systems All systems: reviewed and no additional remarkable complaints except as stated Constitutional Constitutional: Present as per HPI EENT Eyes: Present as per HPI; Absent blurry vision Cardiovascular Cardiovascular: Present as per HPI; Absent chest pain, dyspnea, dyspnea on exertion, leg edema or palpatations Respiratory Respiratory: Present as per HPI; Absent cough, dyspnea, dyspnea on exertion, wheezing or stridor Gastrointestinal Gastrointestinal: Present as per HPI, abdominal pain, melena, nausea and vomiting; Absent diarrhea, dysphagia or hematemesis Musculoskeletal Musculoskeletal: Present as per HPI; Absent joint swelling, limited range of motion, muscle cramps, muscle weakness or myalgias Integumentary Integumentary: Present as per HPI; Absent erythema, new lesions, rash or wounds Neurological Neurological: Present as per HPI; Absent abnormal gait, behavioral changes, focal weakness, headache(s), loss of vision, numbness, sensory deficit or syncope Endocrine Endocrine: Absent change in body appearance, fatigue or heat intolerance Hematologic/Lymphatic Hematologic/Lymphatic: Present as per HPI PFSH PFSH All Active Problems (Updated 04/11/22 @ 15:49 by Tanner Julio MD) CAD (coronary artery disease) (Acute) Melena (Acute) Abdominal pain (Acute) Nausea (Chronic) Osteoporosis (Acute) Influenza vaccination declined (Acute) Medicare annual wellness visit, subsequent (Acute) Muscle pain (Acute) Bilateral hand pain (Acute) Hypotension (Acute) Thrombosis due to arteriovenous access device for hemodialysis (Acute) Sciatica (Acute) Chronic back pain (Acute) ESRD (end stage renal disease) on dialysis (Chronic) Bacteremia (Acute) Anemia in ESRD (end-stage renal disease) (Chronic) Hyperparathyroidism due to end stage renal disease on dialysis (Chronic) Stenosis of AV fistula (Acute) Discitis of thoracic region (Acute) Positive depression screening (Acute) Diabetic peripheral neuropathy (Chronic) Acute exacerbation of chronic low back pain (Acute) Compression fracture of lumbar vertebra (Chronic) Compression fracture of body of thoracic vertebra (Chronic) Strain of lumbar region (Acute) Arteriovenous fistula for hemodialysis in place, primary (Chronic) Vision loss of right eye (Chronic) ESRD on hemodialysis (Chronic) Right sided weakness (Chronic) CKD (chronic kidney disease) (Chronic) Risk for falls (Chronic) Diabetes (Chronic) Bone disease (Chronic) Able to function independently (Chronic) Disruptive behavior (Chronic) Retinal detachment (Chronic) Nephropathy (Chronic) ESRD (end stage renal disease) (Chronic) Hx of transfusion of packed red blood cells (Chronic) Congestive heart failure (Chronic) Blindness of right eye (Chronic) Weakness of right lower extremity (Chronic) Disc herniation (Chronic) Cord compression (Chronic) Essential hypertension (Chronic ~2014) Repeated falls (Chronic) Difficulty in walking, not elsewhere classified (Chronic) Rhabdomyolysis (Chronic) Muscle weakness (Chronic) Hyperlipidemia (Chronic) Right hip pain (Chronic) Kidney failure (Chronic) Joint pain (Chronic) High cholesterol (Chronic) High blood pressure (Chronic) Type 2 diabetes mellitus (Chronic) Muscle pain (Chronic) Anemia (Chronic) Medical History (Updated 04/11/22 @ 15:49 by Tanner Julio MD) Able to function independently Acute exacerbation of chronic low back pain Possibly secondary to compression fractures from T11-L2 versus exacerbation of chronic pain from degenerative disc disease. We will get a DEXA scan. Start calcitonin daily x1 month. Okay to continue cyclobenzaprine as needed. Percocet 5-325 mg p.o. twice daily as needed #30 given. This is for short- term use only. Risks of this medication discussed with patient, patient is responsible, and I believe at low risk for abuse. [employer]ICING [employer] also reviewed and one prior appropriate prescription in June for [place]. Refer to interventional pain management. Follow-up 1 month. Anemia Managed by nephrology with Aranesp once weekly Arteriovenous fistula for hemodialysis in place, primary Placed June 2019. Blindness of right eye Bone disease CKD (chronic kidney disease) Compression fracture of body of thoracic vertebra Moderate T11 and T12. Nontraumatic. Compression fracture of lumbar vertebra Mild L1 and L2. Nontraumatic. Congestive heart failure Cord compression Diabetes Diabetic peripheral neuropathy Good foot care discussed. Patient advised to check her feet daily for wounds or ulcers. Difficulty in walking, not elsewhere classified Disc herniation Discitis of thoracic region T8-9 Completing 8-week course of IV vancomycin and p.o. rifampin this week Follow-up with infectious disease today Pain is now mild and well controlled with ketorolac as needed Discitis of thoracolumbar region T8-T9, T12-L1. Resolved. Pain is now mild and well controlled with ketorolac as needed Disruptive behavior ESRD (end stage renal disease) ESRD on hemodialysis On dialysis Monday Essential hypertension (~2014) Labile Becomes mildly hypotensive during dialysis requiring midodrine High blood pressure High cholesterol History of retinal detachment Corrected surgically History of rhabdomyolysis I believe this is resolved, but will check CPK before restarting the Crestor Hx of transfusion of packed red blood cells Hyperlipidemia Joint pain Kidney failure Medicare annual wellness visit, subsequent Muscle pain Muscle weakness Nephropathy Osteomyelitis of lumbar vertebra T12-L1 disc adjacent endplates Osteomyelitis of thoracic vertebra T8-9 disc adjacent endplates Positive depression screening PHQ 9 score was 18 today and patient noted that the symptoms were very difficult. This is acute, secondary to her back pain addressed above. She has no history of depression. Notably, suicidal ideation is negative. This patient is not depressed. Repeated falls Retinal detachment Rhabdomyolysis Right hip pain Right sided weakness Risk for falls S/P angiogram of extremity (~07/29/19) Fistulogram by Dr. Short Type 2 diabetes mellitus Reversed with diet and weight loss Vision loss of right eye Cataract Weakness of right lower extremity Surgical History History of ankle surgery (~2014) History of (~1985) History of colonoscopy (~2013) History of eye surgery (~2014) History of laminectomy (~08/2015) T8-T9 History of spinal surgery (~2014) History of surgery (~2013) Hemorrhoids/Polyps Status post incision and drainage (~2015) gluteal abscess Family History Mother Arthritis Type 2 diabetes mellitus High blood pressure Father Prostate cancer Social History marital status: occupational status: retired and disabled smoking status: Never smoker alcohol intake frequency: does not drink substance use type: does not use MEDS/ALLERGIES Home Medications and Allergies Home Medications Medication Instructions Recorded Confirmed Type aspirin 81 mg tablet,delayed 81 mg PO QDAY 12/19/19 10/14/21 History release (Adult Low Dose Aspirin) acetaminophen 500 mg tablet 1,000 mg PO Q6H PRN Pain 04/17/20 10/14/21 History (Tylenol Extra Strength) clopidogrel 75 mg tablet (Plavix) 75 mg PO QDAY 04/17/20 10/14/21 History nut.tx.impaired renal fxn,soy 0.09 each PO 04/29/20 10/14/21 History gram-2 kcal/mL oral liquid ([facility] 2 [place]) lanthanum 750 mg oral powder packet 750 mg PO BID #90 ea 06/17/20 10/14/21 Rx torsemide 20 mg tablet 20 mg PO .QOD #60 tabs 06/17/20 10/14/21 Rx cholecalciferol (vitamin D3) 100 100 mcg PO QDAY #90 tabs 11/16/20 10/14/21 Rx mcg (4,000 unit) tablet cyclobenzaprine 10 mg tablet 10 mg PO TID PRN muscle spasm #90 08/11/21 10/14/21 Rx tabs calcium acetate(phosphat bind) 1,334 mg (10 mL) PO TID 3 months 09/13/21 10/14/21 Rx (Phoslyra) #2,700 mL ondansetron 4 mg disintegrating 4 mg PO QDAY PRN nausea and 10/14/21 10/14/21 Rx tablet vomiting #30 tabs Allergies Allergy/AdvReac Type Severity Reaction Status Date / Time vancomycin AdvReac Mild Itching Verified 04/11/22 15:05 EXAM Constitutional Vitals: Temp Pulse Resp BP Pulse Ox O2 Del Method 98.1 F 107 H 18 135/108 95 04/11/22 07:27 04/11/22 13:35 04/11/22 07:27 04/11/22 14:30 04/11/22 13:35 04/11/22 07:27 General appearance: average body habitus Head Head exam: Present atraumatic, normal inspection and normocephalic Eye Eye exam: Present EOMI, normal appearance and PERRL; Absent conjunctival injection ENT ENT exam: Present normal exam; Absent mucous membranes dry Neck Neck exam: Present full ROM; Absent lymphadenopathy Respiratory Respiratory exam: Present normal respiratory exam and CTAB; Absent decreased breath sounds, respiratory distress or wheezes Cardiovascular Cardiovascular exam: Present normal rate and rhythm and RRR; Absent JVD GI/Abdominal GI/Abdominal exam: Present normal bowel sounds, soft, guarding and tenderness; Absent diminished bowel sounds, distended, mass or rebound Neurological Exam Neurological exam: Present alert, CN II-XII intact and oriented X3 Psychiatric Psychiatric exam: Present normal affect and normal mood Skin Skin exam: Present intact and warm; Absent erythema, pallor, petechiae or rash DATA Data Completed and Pending Labs: Labs from last 24 hours 04/11/22 04/11/22 04/11/22 15:15 14:30 14:30 WBC 18.2 H RBC 4.56 Hgb 14.6 Hct 45.0 H POC Hct MCV 98.7 MCH 32.0 MCHC 32.4 RDW 13.1 Plt Count 344 MPV 10.0 Immature Gran % (Auto) 0.5 Neut % (Auto) 91.6 H Lymph % (Auto) 3.7 L Pope % (Auto) 4.0 Eos % (Auto) 0 Baso % (Auto) 0.2 Lymph # (Auto) 0.68 L Pope # (Auto) 0.72 Eos # (Auto) 0 Baso # (Auto) 0.04 Immature Gran # 0.09 H Absolute Neutrophils 16.74 H PT 15.1 H INR 1.1 VBG Lactic Acid POC Sodium Sodium Pending POC Potassium Potassium Pending POC Chloride Chloride Pending Carbon Dioxide Pending POC Total CO2 Anion Gap Pending POC BUN BUN Pending Creatinine Pending POC Creatinine GFR Calculation Pending Glucose Pending POC Glucose Calcium Pending POC WB Ioniz Calcium Total Bilirubin Pending Direct Bilirubin AST Pending ALT Pending Alkaline Phosphatase Pending Total Protein Pending Albumin Pending Globulin Pending Albumin/Globulin Ratio Pending Lipase 04/11/22 04/11/22 04/11/22 13:30 10:09 10:09 WBC 15.7 H RBC 5.14 Hgb 16.5 H Hct 52.5 H POC Hct MCV 102.1 H MCH 32.1 MCHC 31.4 RDW 13.0 Plt Count 226 MPV 10.7 H Immature Gran % (Auto) 0.5 Neut % (Auto) 93.5 H Lymph % (Auto) 3.0 L Pope % (Auto) 2.7 Eos % (Auto) 0.1 Baso % (Auto) 0.2 Lymph # (Auto) 0.47 L Pope # (Auto) 0.42 Eos # (Auto) 0.02 Baso # (Auto) 0.03 Immature Gran # 0.08 H Absolute Neutrophils 14.77 H PT INR VBG Lactic Acid 2.7 H POC Sodium Sodium POC Potassium Potassium POC Chloride Chloride Carbon Dioxide POC Total CO2 Anion Gap POC BUN BUN Creatinine POC Creatinine GFR Calculation Glucose POC Glucose Calcium POC WB Ioniz Calcium Total Bilirubin 0.5 Direct Bilirubin < 0.2 AST 30 ALT 13 Alkaline Phosphatase 79 Total Protein 7.7 Albumin 4.2 Globulin 3.5 Albumin/Globulin Ratio Lipase 74 H 04/11/22 10:03 WBC RBC Hgb Hct POC Hct 50.0 H MCV MCH MCHC RDW Plt Count MPV Immature Gran % (Auto) Neut % (Auto) Lymph % (Auto) Pope % (Auto) Eos % (Auto) Baso % (Auto) Lymph # (Auto) Pope # (Auto) Eos # (Auto) Baso # (Auto) Immature Gran # Absolute Neutrophils PT INR VBG Lactic Acid POC Sodium 135 Sodium POC Potassium 6.1 H* Potassium POC Chloride 107 Chloride Carbon Dioxide POC Total CO2 22.0 Anion Gap POC BUN 84 H BUN Creatinine POC Creatinine 11.9 H* GFR Calculation Glucose POC Glucose 125 H Calcium POC WB Ioniz Calcium 0.76 L Total Bilirubin Direct Bilirubin AST ALT Alkaline Phosphatase Total Protein Albumin Globulin Albumin/Globulin Ratio Lipase A/P Assessment and plan (1) Nausea: Status: Chronic (2) Anemia: Status: Chronic Comment: Managed by nephrology with Aranesp once weekly Qualifiers: Anemia type: due to chronic kidney disease Chronic kidney disease s tage: on chronic dialysis Qualified Code(s): N18.6 - End stage renal disease; D63.1 - Anemia in chronic kidney disease; Z99.2 - Dependence on renal dialysis (3) ESRD on hemodialysis: Status: Chronic Comment: On dialysis Monday (4) Arteriovenous fistula for hemodialysis in place, primary: Status: Chronic Comment: Placed June 2019. (5) Abdominal pain: Status: Acute (6) Melena: Status: Acute (7) CAD (coronary artery disease): Status: Acute Narrative A/P Narrative: The patient became acutely ill after eating pizza. She may have developed gastroenteritis or food poisoning. Because she has complaints of melena in the setting of dual antiplatelets, she will be scheduled for upper and lower endoscopy. She states that she did have a colonoscopy approximately 6 months ago which was unrevealing. CT abdomen pelvis was concerning for abnormal descending colon with wall thickening and luminal irregularity suspicious for neoplasm. We will keep the patient n.p.o., start Protonix 40 mg IV daily, and hold her aspirin and Plavix. Time Spent With Patient Time: Total time spent is greater than 50% in coordination of care (as documented) at patient's floor/unit and/or counseling patient: Total time spent with greater than 50% in coordination of care (as documented) at patient's floor/unit and/or counseling patient:: 50 - 70 minutes
[2022-04-11 16:53] LABS: ALT/SGPT 9 U/L (<40); AST/SGOT 13 U/L (<32); Albumin 4.1 gm/dL (3.2-5.2); Albumin/Globulin Ratio 1.3 (1.0-2.3); Alkaline Phosphatase 76 U/L (39-117); Bilirubin,Total 0.5 mg/dL (0.1-1.0); Blood Urea Nitrogen 60 mg/dL (8-23); Calcium 8.2 mg/dL (8.6-10.4); Carbon Dioxide 21 mmol/L (22-30); Chloride 96 mmol/L (96-108); Globulin 3.2 gm/dL (2.2-3.7); Glomerular Filtration Rate 3; Glucose 136 mg/dL (70-105)
[2022-04-11] MEDS: PANTOPRAZOLE 40 MG VIAL IV SCH (17:58)
[2022-04-11] MEDS: traMADol 50 MG TABLET PO PRN (17:58)
--- NOTE | 2022-04-11 18:21 | Internal Medicine Consult Note ---
HPI Data of Consult Patient: known to practice within the last 3 years Consult date: 04/11/22 Requesting physician: Tanner Julio Primary Care Provider: Praneeth Tobin DO Consult Narrative Chief complaint: GI bleed Reason for consult: GI bleed History of present illness: Ms Renee is a 66 year old ESRD on HD with dual antiplatelet therapy on aspirin and Plavix secondary to CAD and AV fistula thrombosis who presented to the ED for melena this morning. Last night, she ate a pizza. One hour later, she developed RLQ abdominal pain, diarrhea and nausea with vomiting. She was taken to the ED this morning on her way to dialysis as she felt unwell and saw melena on arrival to ED. She has had some hematochezia this afternoon. She is currently afebrile, but complains of chills and has marked leukocytosis with WBC 18k with a predominance of neutrophils. Hgb14.6 (was 13.3 [address] revealed thickening of the ascending colon; colonoscopy [place] [address] Isbell showed no abnormality at that site. Central line placed in ED for vascular access. She has started Protonix. 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 (Acute) Sciatica (Acute) Chronic back pain (Acute) ESRD (end stage renal disease) on dialysis (Chronic) Bacteremia (Acute) Anemia in ESRD (end-stage renal disease) (Chronic) Hyperparathyroidism due to end stage renal disease on dialysis (Chronic) Stenosis of AV fistula (Acute) Discitis of thoracic region (Acute) Positive depression screening (Acute) Diabetic peripheral neuropathy (Chronic) Acute exacerbation of chronic low back pain (Acute) Compression fracture of lumbar vertebra (Chronic) Compression fracture of body of thoracic vertebra (Chronic) Strain of lumbar region (Acute) Arteriovenous fistula for hemodialysis in place, primary (Chronic) Vision loss of right eye (Chronic) ESRD on hemodialysis (Chronic) Right sided weakness (Chronic) CKD (chronic kidney disease) (Chronic) Risk for falls (Chronic) Diabetes (Chronic) Bone disease (Chronic) Able to function independently (Chronic) Disruptive behavior (Chronic) Retinal detachment (Chronic) Nephropathy (Chronic) ESRD (end stage renal disease) (Chronic) Hx of transfusion of packed red blood cells (Chronic) Congestive heart failure (Chronic) Blindness of right eye (Chronic) Weakness of right lower extremity (Chronic) Disc herniation (Chronic) Cord compression (Chronic) Essential hypertension (Chronic ~2014) Repeated falls (Chronic) Difficulty in walking, not elsewhere classified (Chronic) Rhabdomyolysis (Chronic) Muscle weakness (Chronic) Hyperlipidemia (Chronic) Right hip pain (Chronic) Kidney failure (Chronic) Joint pain (Chronic) High cholesterol (Chronic) High blood pressure (Chronic) Type 2 diabetes mellitus (Chronic) Muscle pain (Chronic) Anemia (Chronic) Medical History (Updated 04/11/22 @ 15:49 by Tanner Julio MD) Able to function independently Acute exacerbation of chronic low back pain Possibly secondary to compression fractures from T11-L2 versus exacerbation of chronic pain from degenerative disc disease. We will get a DEXA scan. Start calcitonin daily x1 month. Okay to continue cyclobenzaprine as needed. Percocet 5-325 mg p.o. twice daily as needed #30 given. This is for short- term use only. Risks of this medication discussed with patient, patient is responsible, and I believe at low risk for abuse. HEAD RESIDENT also reviewed and one prior appropriate prescription in June for [place]. Refer to interventional pain management. Follow-up 1 month. Anemia Managed by nephrology with Aranesp once weekly Arteriovenous fistula for hemodialysis in place, primary Placed June 2019. Blindness of right eye Bone disease CKD (chronic kidney disease) Compression fracture of body of thoracic vertebra Moderate T11 and T12. Nontraumatic. Compression fracture of lumbar vertebra Mild L1 and L2. Nontraumatic. Congestive heart failure Cord compression Diabetes Diabetic peripheral neuropathy Good foot care discussed. Patient advised to check her feet daily for wounds or ulcers. Difficulty in walking, not elsewhere classified Disc herniation Discitis of thoracic region T8-9 Completing 8-week course of IV vancomycin and p.o. rifampin this week Follow-up with infectious disease today Pain is now mild and well controlled with ketorolac as needed Discitis of thoracolumbar region T8-T9, T12-L1. Resolved. Pain is now mild and well controlled with ketorolac as needed Disruptive behavior ESRD (end stage renal disease) ESRD on hemodialysis On dialysis Monday Essential hypertension (~2014) Labile Becomes mildly hypotensive during dialysis requiring midodrine High blood pressure High cholesterol History of retinal detachment Corrected surgically History of rhabdomyolysis I believe this is resolved, but will check CPK before restarting the Crestor Hx of transfusion of packed red blood cells Hyperlipidemia Joint pain Kidney failure Medicare annual wellness visit, subsequent Muscle pain Muscle weakness Nephropathy Osteomyelitis of lumbar vertebra T12-L1 disc adjacent endplates Osteomyelitis of thoracic vertebra T8-9 disc adjacent endplates Positive depression screening PHQ 9 score was 18 today and patient noted that the symptoms were very difficult. This is acute, secondary to her back pain addressed above. She has no history of depression. Notably, suicidal ideation is negative. This patient is not depressed. Repeated falls Retinal detachment Rhabdomyolysis Right hip pain Right sided weakness Risk for falls S/P angiogram of extremity (~07/29/19) Fistulogram by Dr. Short Type 2 diabetes mellitus Reversed with diet and weight loss Vision loss of right eye Cataract Weakness of right lower extremity Surgical History History of ankle surgery (~2014) History of (~1985) History of colonoscopy (~2013) History of eye surgery (~2014) History of laminectomy (~08/2015) T8-T9 History of spinal surgery (~2014) History of surgery (~2013) Hemorrhoids/Polyps Status post incision and drainage (~2015) gluteal abscess Family History Mother Arthritis Type 2 diabetes mellitus High blood pressure Father Prostate cancer Social History marital status: occupational status: retired and disabled smoking status: Never smoker alcohol intake frequency: does not drink substance use type: does not use MEDS/ALLERGIES Home Medications and Allergies Home Medications Medication Instructions Recorded Confirmed Type aspirin 81 mg tablet,delayed 81 mg PO QDAY 12/19/19 10/14/21 History release (Adult Low Dose Aspirin) acetaminophen 500 mg tablet 1,000 mg PO Q6H PRN Pain 04/17/20 10/14/21 History (Tylenol Extra Strength) clopidogrel 75 mg tablet (Plavix) 75 mg PO QDAY 04/17/20 04/11/22 History nut.tx.impaired renal fxn,soy 0.09 each PO 04/29/20 10/14/21 History gram-2 kcal/mL oral liquid ([facility] Renal 2 [place]) lanthanum 750 mg oral powder packet 750 mg PO BID #90 ea 06/17/20 10/14/21 Rx torsemide 20 mg tablet 20 mg PO .QOD #60 tabs 06/17/20 10/14/21 Rx cholecalciferol (vitamin D3) 100 100 mcg PO QDAY #90 tabs 11/16/20 10/14/21 Rx mcg (4,000 unit) tablet cyclobenzaprine 10 mg tablet 10 mg PO TID PRN muscle spasm #90 08/11/21 10/14/21 Rx tabs calcium acetate(phosphat bind) 1,334 mg (10 mL) PO TID 3 months 09/13/21 10/14/21 Rx (Phoslyra) #2,700 mL ondansetron 4 mg disintegrating 4 mg PO QDAY PRN nausea and 10/14/21 10/14/21 Rx tablet vomiting #30 tabs Allergies Allergy/AdvReac Type Severity Reaction Status Date / Time vancomycin AdvReac Mild Itching Verified 04/11/22 15:05 EXAM Constitutional Vitals: Temp Pulse Resp BP Pulse Ox O2 Del Method 98.5 F 97 H 20 137/76 95 04/11/22 17:49 04/11/22 17:49 04/11/22 17:00 04/11/22 17:49 04/11/22 17:00 04/11/22 17:00 General appearance: cooperative, mild distress and obese Head Head exam: Present atraumatic, normal inspection and normocephalic Eye Eye exam: Present normal appearance ENT ENT exam: Present mucous membranes moist Neck Neck exam: Present normal inspection Respiratory Respiratory exam: Absent accessory muscle use Neurological Exam Neurological exam: Present alert Psychiatric Psychiatric exam: Present normal affect and normal mood Skin Skin exam: Present dry and warm DATA Data Completed and Pending Labs: Labs from last 24 hours 04/11/22 04/11/22 04/11/22 15:15 14:30 14:30 WBC 18.2 H RBC 4.56 Hgb 14.6 Hct 45.0 H POC Hct MCV 98.7 MCH 32.0 MCHC 32.4 RDW 13.1 Plt Count 344 MPV 10.0 Immature Gran % (Auto) 0.5 Neut % (Auto) 91.6 H Lymph % (Auto) 3.7 L Gregg % (Auto) 4.0 Eos % (Auto) 0 Baso % (Auto) 0.2 Lymph # (Auto) 0.68 L Gregg # (Auto) 0.72 Eos # (Auto) 0 Baso # (Auto) 0.04 Immature Gran # 0.09 H Absolute Neutrophils 16.74 H PT 15.1 H INR 1.1 VBG Lactic Acid POC Sodium Sodium 139 POC Potassium Potassium 5.5 H POC Chloride Chloride 96 Carbon Dioxide 21 L POC Total CO2 Anion Gap 22.0 H POC BUN BUN 60 H Creatinine 10.5 H* POC Creatinine GFR Calculation 3 Glucose 136 H POC Glucose Calcium 8.2 L POC WB Ioniz Calcium Total Bilirubin 0.5 Direct Bilirubin AST 13 ALT 9 Alkaline Phosphatase 76 Total Protein 7.3 Albumin 4.1 Globulin 3.2 Albumin/Globulin Ratio 1.3 Lipase 04/11/22 04/11/22 04/11/22 13:30 10:09 10:09 WBC 15.7 H RBC 5.14 Hgb 16.5 H Hct 52.5 H POC Hct MCV 102.1 H MCH 32.1 MCHC 31.4 RDW 13.0 Plt Count 226 MPV 10.7 H Immature Gran % (Auto) 0.5 Neut % (Auto) 93.5 H Lymph % (Auto) 3.0 L Gregg % (Auto) 2.7 Eos % (Auto) 0.1 Baso % (Auto) 0.2 Lymph # (Auto) 0.47 L Gregg # (Auto) 0.42 Eos # (Auto) 0.02 Baso # (Auto) 0.03 Immature Gran # 0.08 H Absolute Neutrophils 14.77 H PT INR VBG Lactic Acid 2.7 H POC Sodium Sodium POC Potassium Potassium POC Chloride Chloride Carbon Dioxide POC Total CO2 Anion Gap POC BUN BUN Creatinine POC Creatinine GFR Calculation Glucose POC Glucose Calcium POC WB Ioniz Calcium Total Bilirubin 0.5 Direct Bilirubin < 0.2 AST 30 ALT 13 Alkaline Phosphatase 79 Total Protein 7.7 Albumin 4.2 Globulin 3.5 Albumin/Globulin Ratio Lipase 74 H 04/11/22 10:03 WBC RBC Hgb Hct POC Hct 50.0 H MCV MCH MCHC RDW Plt Count MPV Immature Gran % (Auto) Neut % (Auto) Lymph % (Auto) Gregg % (Auto) Eos % (Auto) Baso % (Auto) Lymph # (Auto) Gregg # (Auto) Eos # (Auto) Baso # (Auto) Immature Gran # Absolute Neutrophils PT INR VBG Lactic Acid POC Sodium 135 Sodium POC Potassium 6.1 H* Potassium POC Chloride 107 Chloride Carbon Dioxide POC Total CO2 22.0 Anion Gap POC BUN 84 H BUN Creatinine POC Creatinine 11.9 H* GFR Calculation Glucose POC Glucose 125 H Calcium POC WB Ioniz Calcium 0.76 L Total Bilirubin Direct Bilirubin AST ALT Alkaline Phosphatase Total Protein Albumin Globulin Albumin/Globulin Ratio Lipase A/P Assessment and plan (1) Melena: Status: Acute (2) Abdominal pain: Assessment and plan: Her history of abdominal pain followed by diarrhea, followed by bloody diarrhea suggests infectious enterocolitis. Differential diagnosis also includes bleeding secondary to antiplatelet therapy, ulcer, IBD, etc. We will check stool studies for infectious etiologies and proceed with EGD tomorrow to evaluate her anemia, colonoscopy the following day to evaluate her abnormal CT and diarrhea if stool studies are unrevealing. Status: Acute Time Spent With Patient Time: Total time spent is greater than 50% in coordination of care (as documented) at patient's floor/unit and/or counseling patient: Total time spent with greater than 50% in coordination of care (as documented) at patient's floor/unit and/or counseling patient:: 25 - 35 minutes
[2022-04-11] MEDS: PIPERACILLIN SODIUM/TAZOBACTAM 2.25 GM in DEXTROSE 5% IN WATER 50 ML IV SCH (21:45)
[2022-04-11] MEDS: 0.9 % SODIUM CHLORIDE 10 ML SYRINGE IV SCH (21:45)
[2022-04-11] MEDS: HEPARIN 5,000 UNIT/ML VIAL SQ SCH (22:26)
[2022-04-12] MEDS: PIPERACILLIN SODIUM/TAZOBACTAM 2.25 GM in DEXTROSE 5% IN WATER 50 ML IV SCH ×4 (00:11→21:03)
[2022-04-12] MEDS: traMADol 50 MG TABLET PO PRN ×3 (04:26→21:02)
[2022-04-12] MEDS: 0.9 % SODIUM CHLORIDE 10 ML SYRINGE IV SCH ×3 (05:29→21:03)
[2022-04-12 07:27] LABS: Basophils # (Auto) 0.05 K/mcL (0.00-0.30); Basophils % (Auto) 0.3 % (0.0-2.0); Eosinophils # (Auto) 0.01 K/mcL (0.00-0.70); Eosinophils % (Auto) 0.1 % (0.0-7.0); Hematocrit 42.5 % (34.1-44.9); Hemoglobin 13.6 g/dL (11.2-15.7); Lymphocytes # (Auto) 0.92 K/mcL (1.50-4.80); Lymphocytes % (Auto) 6.1 % (15.5-49.0); Mean Cell Volume 100.2 fL (80.0-100.0); Mean Platelet Volume 10.3 fL (7.4-10.4); Monocytes # (Auto) 0.56 K/mcL (0.10-0.90); Monocytes % (Auto) 3.7 % (1.0-12.0); Neutrophils % (Auto) 89.4 % (38.0-78.0); Platelet Count 313 K/mcL (140-440); RBC 4.24 M/mcL (3.59-5.38); Red Cell Distribution Width 13.2 % (11.5-14.5); WBC 15.1 K/mcL (4.5-11.0)
[2022-04-12] MEDS: PANTOPRAZOLE 40 MG VIAL IV SCH ×2 (07:58→17:25)
[2022-04-12 08:02] LABS: Blood Urea Nitrogen 37 mg/dL (8-23); Calcium 8.2 mg/dL (8.6-10.4); Carbon Dioxide 25 mmol/L (22-30); Chloride 94 mmol/L (96-108); Glomerular Filtration Rate 6; Glucose 93 mg/dL (70-105)
[2022-04-12] MEDS ORDERED: KETAMINE 50 MG/ML ML IV PRN ×2 (08:14→12:04)
[2022-04-12] MEDS ORDERED: PROPOFOL 200 MG/20 ML VIAL IV SCH ×2 (08:15→12:15)
[2022-04-12] MEDS ORDERED: MIDAZOLAM 2 MG/2 ML VIAL IV SCH ×2 (08:15→12:15)
--- NOTE | 2022-04-12 08:23 | Nephrology Progress Note ---
SUBJECTIVE Subjective Patient information: Note initiated : 04/12/22 at 8:20 am Patient: Gayla Hewitt 66 y/o F admitted on 04/11/22 for Lower Quadrant Pain. Chief Complaint: Nausea Pertinent ROS: Feeling better No shortness of breath Constitutional Vitals: Vital Signs Temp Pulse Resp BP Pulse Ox O2 Del Method 98.3 F 98 H 20 106/62 91 04/12/22 04:17 04/12/22 04:17 04/12/22 04:17 04/12/22 04:17 04/12/22 04:17 04/12/22 04:17 Period Temp Pulse Resp BP Sys/Kirk Pulse Ox O2 Del Method O2 Flow Rate Last 24 Hr 97.8 F-98.9 F 45-110 16-24 86-139/55-108 77-100 Room Air-Room Air Intake and Output 04/11/22 04/12/22 04/12/22 21:59 05:59 13:59 Intake Total 0 50 50 Output Total 350 0 Balance -350 50 50 Weight 181 lb 4.8 oz Intake & Output: Intake & Output 04/11/22 04/12/22 04/12/22 21:59 05:59 13:59 Intake Total 0 50 50 Output Total 350 0 Balance -350 50 50 Weight 181 lb 4.8 oz Intake: IV 50 50 Zosyn 2.25 gm In Dextrose 5% in 50 50 Water 50 ml @ 100 mls/hr IV Q[facility]H [facility] Rx#:[id number] Oral 0 0 Output: Void Amount 0 # of times incontinent of urine 0 Hemodialysis UF 350 Other: Stool Size Smear Stool Color Dark Red Blood Brown Dark Red Blood Stool Consistency Loose # Voids 0 # Bowel Movements 0 # of times incontinent of 1 Bowels General appearance: no acute distress Head Head exam: Present atraumatic and normal inspection Respiratory Respiratory exam: Present CTAB Cardiovascular Cardiovascular exam: Present normal rate and rhythm GI/Abdominal GI/Abdominal exam: Present soft and tenderness Neurological Exam Neurological exam: Present alert and oriented X3 Psychiatric Psychiatric exam: Present normal affect and normal mood Skin Skin exam: Present normal color and warm A/P Assessment and plan (1) ESRD (end stage renal disease) on dialysis: Assessment and plan: Gayla Huff is a 66-year-old female with end stage renal disease on hemodialysis, admitted on 04/11/22. She presented to [facility] ED for abdominal pain nausea, vomiting and diarrhea. Labs were significant for WBC 15.7, K 6.1, lactic acid 2.7, lipase 74. CT abdomen pelvis wo con reported as abnormal descending colon with wall thickening and luminal irregularity with mild munguia rrounding infiltration, suspicious for neoplasm and colonoscopy is recommended. In ED, she had several loose stools that appeared to be melanotic. Nephrology consultation was requested for end stage renal disease. End stage renal disease on hemodialysis on MWF. Hyperkalemia, resolved. Progress: HD on 04/11/22. Endoscopy pending today. Recommendations/Plan: Continue hemodialysis on MWF. Status: Chronic Time Spent With Patient Time: Total time spent is greater than 50% in coordination of care (as documented) at patient's floor/unit and/or counseling patient:
[2022-04-12 08:24] LABS: Iron 19 ug/dL (37-145); TIBC Calculation 180 ug/dl (228-428); Transferrin % Saturation 11 % (15-50)
[2022-04-12] MEDS ORDERED: PROPOFOL 200 MG/20 ML VIAL IV ONE (09:14)
[2022-04-12] MEDS ORDERED: MIDAZOLAM 2 MG/2 ML VIAL ONE (09:14)
--- NOTE | 2022-04-12 10:16 | EKG ---
[facility] Test Date: 2022-04-11 Pat Name: Gayla Huff Lex Department: ED Room: Gender: Female Pomologist: AW : 1955 Requested By: Jerzy Nayak Order Number: [id number] Reading MD: Abrahan Peterson Measurements Intervals [place] Rate: 104 P: 60 DE: 177 QRS: 1 QRSD: 138 T: 111 QT: 385 QTc: 507 Interpretive Statements Sinus tachycardia Probable left atrial enlargement Left bundle branch block Baseline wander in lead(s) V3 Electronically Signed On 04-12-2022 10:15:47 PDT by Abrahan Peterson /store/[email or web address]/[id number]/[email or web address]/[id number]
[2022-04-12] MEDS ORDERED: PEG 3350/NA SULF,BICARB,CL/KCL 4,000 ML ORAL.SOL PO SCH (12:15)
--- NOTE | 2022-04-12 13:30 | Internal Med Progress Note ---
SUBJECTIVE Subjective Patient information: Note initiated : 04/12/22 at 1:28 pm Service Date, if different from initiated Date: [] Patient: Gayla Hewitt 66 y/o F admitted on 04/11/22 for Lower Quadrant Pain. Chief Complaint: [Abdominal pain, n/v] Principal diagnosis: Melena Interval history: The patient was resting comfortably in bed. She states that her abdominal pain is well controlled as long as she is not moving. Her appetite has returned however she was n.p.o. for EGD this morning. Constitutional Vitals: Vital Signs Temp Pulse Resp BP Pulse Ox O2 Del Method 97.0 F 98 H 18 92/56 92 04/12/22 09:45 04/12/22 10:00 04/12/22 10:00 04/12/22 10:00 04/12/22 10:00 04/12/22 10:00 Period Temp Pulse Resp BP Sys/Kirk Pulse Ox O2 Del Method O2 Flow Rate Last 24 Hr 97.0 F-99.8 F 84-107 16-28 86-139/52-108 91-99 Room Air-Room Air Intake and Output 04/11/22 04/12/22 04/12/22 21:59 05:59 13:59 Intake Total 0 50 50 Output Total 350 0 Balance -350 50 50 Weight 82.236 kg Intake & Output: Intake & Output 04/11/22 04/12/22 04/12/22 21:59 05:59 13:59 Intake Total 0 50 50 Output Total 350 0 Balance -350 50 50 Weight 82.236 kg Intake: IV 50 50 Zosyn 2.25 gm In Dextrose 5% in 50 50 Water 50 ml @ 100 mls/hr IV Q8H ON LICENSE OF [facility] Rx#:[id number] Oral 0 0 Output: Void Amount 0 # of times incontinent of urine 0 Hemodialysis UF 350 Other: Stool Size Smear Stool Color Dark Red Blood Brown Dark Red Blood Stool Consistency Loose # Voids 0 # Bowel Movements 0 # of times incontinent of 1 Bowels Head Head exam: Present atraumatic and normal inspection Eye Eye exam: Present normal appearance ENT ENT exam: Present mucous membranes moist, normal exam and normal external ear exam Neck Neck exam: Present normal inspection Respiratory Respiratory exam: Present normal respiratory exam Cardiovascular Cardiovascular exam: Present normal rate and rhythm GI/Abdominal GI/Abdominal exam: Present guarding and tenderness Back Exam Back exam: Present normal inspection Neurological Exam Neurological exam: Present alert and oriented X3 Skin Skin exam: Present intact and warm OBJ DATA Labs CBC & Chem 7: 04/12/22 05:14 04/12/22 05:14 Labs: Abnormal Lab Results 04/12/22 04/12/22 04/11/22 05:14 05:14 15:15 WBC 15.1 H 18.2 H Hgb Hct 45.0 H POC Hct MCV 100.2 H MPV Neut % (Auto) 89.4 H 91.6 H Lymph % (Auto) 6.1 L 3.7 L Lymph # (Auto) 0.92 L 0.68 L Immature Gran # 0.06 H 0.09 H Absolute Neutrophils 13.51 H 16.74 H PT VBG Lactic Acid POC Potassium Potassium Chloride 94 L Carbon Dioxide Anion Gap 17.0 H POC BUN BUN 37 H Creatinine 7.0 H* POC Creatinine Glucose POC Glucose Calcium 8.2 L POC WB Ioniz Calcium Iron 19 L TIBC 180 L Transferrin % Sat 11 L Ferritin 1075.0 H Lipase 04/11/22 04/11/22 04/11/22 14:30 14:30 13:30 WBC Hgb Hct POC Hct MCV MPV Neut % (Auto) Lymph % (Auto) Lymph # (Auto) Immature Gran # Absolute Neutrophils PT 15.1 H VBG Lactic Acid 2.7 H POC Potassium Potassium 5.5 H Chloride Carbon Dioxide 21 L Anion Gap 22.0 H POC BUN BUN 60 H Creatinine 10.5 H* POC Creatinine Glucose 136 H POC Glucose Calcium 8.2 L POC WB Ioniz Calcium Iron TIBC Transferrin % Sat Ferritin Lipase 04/11/22 04/11/22 04/11/22 10:09 10:09 10:03 WBC 15.7 H Hgb 16.5 H Hct 52.5 H POC Hct 50.0 H MCV 102.1 H MPV 10.7 H Neut % (Auto) 93.5 H Lymph % (Auto) 3.0 L Lymph # (Auto) 0.47 L Immature Gran # 0.08 H Absolute Neutrophils 14.77 H PT VBG Lactic Acid POC Potassium 6.1 H* Potassium Chloride Carbon Dioxide Anion Gap POC BUN 84 H BUN Creatinine POC Creatinine 11.9 H* Glucose POC Glucose 125 H Calcium POC WB Ioniz Calcium 0.76 L Iron TIBC Transferrin % Sat Ferritin Lipase 74 H Meds: Medications Diagnostic Test (Pha) (Accu-Chek 1 Each Strip) 1 each FS UD PRN PRN Reason: DM Stop: 04/12/22 16:14 Heparin Sodium (Porcine) (Heparin 5,000 Unit/Ml Vial) 5,000 unit SQ Q12 ON LICENSE OF [facility] Last Admin: 04/11/22 22:26 Dose: 5,000 unit Piperacillin Sod/Tazobactam (Sod 2.25 gm/ Dextrose) 50 mls @ 100 mls/hr IV Q8H ON LICENSE OF [facility]; Protocol Last Infusion: 04/12/22 06:00 Dose: Infused Ketamine HCl (Ketamine 50 Mg/Ml Ml) 50 mg IV ONCE PRN PRN Reason: Sedation Stop: 04/12/22 16:14 Midazolam HCl (Midazolam 2 Mg/2 Ml Vial) 0 mg IV ONCE ON LICENSE OF [facility] Stop: 04/12/22 16:14 Last Admin: 04/12/22 09:24 Dose: 2 mg Pantoprazole Sodium (Pantoprazole 40 Mg Vial) 40 mg IV BIDAC ON LICENSE OF [facility] Last Admin: 04/12/22 07:58 Dose: Not Given Polyethylene Glycol/Electrolytes (Peg 3350/Na Sulf,Bicarb,Cl/Kcl 4,000 Ml Oral.Sally) 4,000 ml PO 1215 ON LICENSE OF [facility] Stop: 04/12/22 17:00 Propofol (Propofol 200 Mg/20 Ml Vial) 0 mg IV UD ON LICENSE OF [facility] Stop: 04/12/22 16:14 Last Admin: 04/12/22 09:24 Dose: 70 mg Sodium Chloride (0.9 % Sodium Chloride 10 Ml Syringe) 10 ml IV Q8 [place] Last Admin: 04/12/22 05:29 Dose: 10 ml Tramadol HCl (Tramadol 50 Mg Tablet) 50 mg PO Q6HP PRN; Protocol PRN Reason: Pain Last Admin: 04/12/22 12:36 Dose: 50 mg A/P Assessment and plan (1) Nausea: Status: Chronic (2) Anemia: Status: Chronic Comment: Managed by nephrology with Juany once weekly Qualifiers: Anemia type: due to chronic kidney disease Chronic kidney disease stage: on chronic dialysis Qualified Code(s): N18.6 - End stage renal disease; D63.1 - Anemia in chronic kidney disease; Z99.2 - Dependence on renal dialysis (3) ESRD on hemodialysis: Status: Chronic Comment: On dialysis Monday (4) Arteriovenous fistula for hemodialysis in place, primary: Status: Chronic Comment: Placed June 2019. (5) Abdominal pain: Status: Acute (6) Melena: Status: Acute (7) CAD (coronary artery disease): Status: Acute Narrative A/P Narrative: The patient became acutely ill after eating pizza. She may have developed gastroenteritis or food poisoning. Because she has complaints of melena in the setting of dual antiplatelets, she will be scheduled for upper and lower endoscopy. She states that she did have a colonoscopy approximately 6 months ago which was unrevealing. CT abdomen pelvis was concerning for abnormal descending colon with wall thickening and luminal irregularity suspicious for neoplasm. We will keep the patient n.p.o., start Protonix 40 mg IV daily, and hold her aspirin and Plavix. 04/12: The patient's H&H is slightly down to 13.6/42.5 today. We will continue Zosyn for possible necrotic colitis of the descending colon. Her white blood cell count is down to 15.1. She underwent EGD today. Continue Protonix 40 mg IV twice daily and she will have a follow-up colonoscopy tomorrow. Gastroenterology is following. Time Spent With Patient Time: Total time spent is greater than 50% in coordination of care (as documented) at patient's floor/unit and/or counseling patient: Total time spent with greater than 50% in coordination of care (as documented) at patient's floor/unit and/or counseling patient:: 25 - 35 minutes QUALITY VTE Deep Vein Thrombosis/Pulmonary Embolism Present on Admission: No
[2022-04-12] MEDS: HEPARIN 5,000 UNIT/ML VIAL SQ SCH ×2 (17:19→21:03)
[2022-04-12] MEDS ORDERED: PEG 3350/NA SULF,BICARB,CL/KCL 4,000 ML ORAL.SOL PO ONE (20:00)
[2022-04-13] MEDS: PIPERACILLIN SODIUM/TAZOBACTAM 2.25 GM in DEXTROSE 5% IN WATER 50 ML IV SCH ×3 (04:53→21:32)
[2022-04-13] MEDS: 0.9 % SODIUM CHLORIDE 10 ML SYRINGE IV SCH ×3 (04:54→21:32)
--- NOTE | 2022-04-13 07:06 | Nephrology Progress Note ---
SUBJECTIVE Subjective Patient information: Note initiated : 04/13/22 at 7:03 am Patient: Gayla Hewitt 66 y/o F admitted on 04/11/22 for Lower Quadrant Pain. Chief Complaint: Weakness Principal diagnosis: Melena Pertinent ROS: Feels better Constitutional Vitals: Vital Signs Temp Pulse Resp BP Pulse Ox O2 Del Method 97.9 F 95 H 12 113/64 91 04/13/22 04:32 04/13/22 04:32 04/13/22 04:32 04/13/22 04:32 04/13/22 04:32 04/13/22 04:32 Period Temp Pulse Resp BP Sys/Kirk Pulse Ox O2 Del Method O2 Flow Rate Last 24 Hr 97.0 F-99.8 F 95-101 12-28 83-139/52-96 90-96 Nasal Cannula- Room Air Intake and Output 04/12/22 04/13/22 04/13/22 21:59 05:59 13:59 Intake Total 740 640 360 Output Total 1 0 Balance 739 640 360 Weight 183 lb 6.793 oz Intake & Output: Intake & Output 04/12/22 04/13/22 04/13/22 21:59 05:59 13:59 Intake Total 740 640 360 Output Total 1 0 Balance 739 640 360 Weight 183 lb 6.793 oz Intake: IV 100 50 Zosyn 2.25 gm In Dextrose 5% in 100 50 Water 50 ml @ 100 mls/hr IV Q8H [place] Rx#:[id number] Oral 640 590 360 Output: # of times incontinent of urine 0 Urine/Stool Mix 1 Other: Stool Size Moderate Small Moderate Stool Color Brown Brown Brown Dark Red Blood Stool Consistency Liquid Liquid Liquid Watery Watery Loose # Voids 0 # Bowel Movements 1 1 # of times incontinent of 2 Bowels General appearance: cooperative and no acute distress Head Head exam: Present atraumatic and normal inspection Respiratory Respiratory exam: Present CTAB Cardiovascular Cardiovascular exam: Present RRR GI/Abdominal GI/Abdominal exam: Present soft Neurological Exam Neurological exam: Present alert and oriented X3 Psychiatric Psychiatric exam: Present normal affect and normal mood Skin Skin exam: Present warm A/P Assessment and plan (1) ESRD (end stage renal disease) on dialysis: Assessment and plan: Gayla Huff is a 66-year-old female with end stage renal disease on hemodialysis, admitted on 04/11/22. She presented to [facility] ED for abdominal pain nausea, vomiting and diarrhea. Labs were significant for WBC 15.7, K 6.1, lactic acid 2.7, lipase 74. CT abdomen pelvis wo con reported as abnormal descending colon with wall thickening and luminal irregularity with mild surrounding infiltration, suspicious for neoplasm and colonoscopy is recommended. In ED, she had several loose stools that appeared to be melanotic. Nephrology consultation was requested for end stage renal disease. End stage renal disease on hemodialysis on MWF. Hyperkalemia, resolved. Progress: HD on 04/11/22. Recommendations/Plan: Continue hemodialysis on MWF. The patient seen and evaluated during hemodialysis at 10:01. She is tolerating well. Status: Chronic Time Spent With Patient Time: Total time spent is greater than 50% in coordination of care (as documented) at patient's floor/unit and/or counseling patient:
[2022-04-13] MEDS: PANTOPRAZOLE 40 MG VIAL IV SCH ×2 (08:19→17:12)
[2022-04-13] MEDS: HEPARIN 5,000 UNIT/ML VIAL SQ SCH ×2 (08:20→20:17)
[2022-04-13] MEDS: CYCLOBENZAPRINE 10 MG TABLET PO PRN ×2 (08:21→20:17)
--- NOTE | 2022-04-13 08:29 | EGD Procedure Note ---
EGD Procedure Notes Procedure Information Patient information: Note initiated : 04/13/22 at 8:28 am Patient: Gayla Hewitt 66 y/o F admitted on 04/11/22 for Lower Quadrant Pain. Pre-op diagnosis general: Melena. Abdominal pain. Post-Op Diagnosis general: Normal EGD. Date of Procedure: 04/12/22 Procedure: EGD with Bx Procedure Narrative: The procedure, alternatives and risks were discussed with the patient and the patient's questions were answered. With endoscopist-administered intravenous sedation, the Olympus video endoscope was introduced into the esophagus. The esophagus, stomach, and duodenum were examined sequentially. There is no esophagitis; there is a small hiatal hernia. The gastric mucosa, antrum, pyloric ring and duodenum were otherwise normal. Antral biopsy was taken for GRACY test. No cause of bleeding identified. The scope was withdrawn. Assessment: Normal EGD.
[2022-04-13] MEDS ORDERED: KETAMINE 50 MG/ML ML IV PRN (08:51)
[2022-04-13] MEDS ORDERED: MIDAZOLAM 2 MG/2 ML VIAL IV SCH (09:00)
[2022-04-13] MEDS ORDERED: PROPOFOL 200 MG/20 ML VIAL IV SCH (09:00)
[2022-04-13] MEDS ORDERED: FLEETS ADULT ENEMA PR ONE (09:15)
--- NOTE | 2022-04-13 11:42 | Internal Med Progress Note ---
SUBJECTIVE Subjective Patient information: Note initiated : 04/13/22 at 11:41 am Service Date, if different from initiated Date: [] Patient: Gayla Hewitt 66 y/o F admitted on 04/11/22 for Lower Quadrant Pain. Chief Complaint: [Abdominal pain] Principal diagnosis: Melena Interval history: The patient was resting comfortably in bed. She did tolerated diet after EGD yesterday. She was undergoing hemodialysis this morning. Constitutional Vitals: Vital Signs Temp Pulse Resp BP Pulse Ox O2 Del Method 98.2 F 96 H 20 100/67 92 04/13/22 09:00 04/13/22 11:32 04/13/22 08:00 04/13/22 11:32 04/13/22 08:00 04/13/22 08:00 Period Temp Pulse Resp BP Sys/Kirk Pulse Ox O2 Del Method O2 Flow Rate Last 24 Hr 97.9 F-99.0 F 89-104 12-20 83-140/53-84 90-92 Nasal Cannula- Room Air Intake and Output 04/12/22 04/13/22 04/13/22 21:59 05:59 13:59 Intake Total 740 640 360 Output Total 1 0 Balance 739 640 360 Weight 83.2 kg Intake & Output: Intake & Output 04/12/22 04/13/22 04/13/22 21:59 05:59 13:59 Intake Total 740 640 360 Output Total 1 0 Balance 739 640 360 Weight 83.2 kg Intake: IV 100 50 Zosyn 2.25 gm In Dextrose 5% in 100 50 Water 50 ml @ 100 mls/hr IV Q8H [facility] Rx#:[id number] Oral 640 590 360 Output: # of times incontinent of urine 0 Urine/Stool Mix 1 Other: Stool Size Moderate Small Moderate Stool Color Brown Brown Brown Dark Red Blood Stool Consistency Liquid Liquid Liquid Watery Watery Loose # Voids 0 # Bowel Movements 1 1 # of times incontinent of 2 Bowels Head Head exam: Present atraumatic and normal inspection Eye Eye exam: Present normal appearance ENT ENT exam: Present mucous membranes moist, normal exam and normal external ear exam Neck Neck exam: Present normal inspection Respiratory Respiratory exam: Present normal respiratory exam Cardiovascular Cardiovascular exam: Present normal rate and rhythm GI/Abdominal GI/Abdominal exam: Present normal bowel sounds Back Exam Back exam: Present normal inspection Neurological Exam Neurological exam: Present alert and oriented X3 Skin Skin exam: Present intact and warm OBJ DATA Labs CBC & Chem 7: 04/12/22 05:14 04/12/22 05:14 Labs: Abnormal Lab Results 04/12/22 04/12/22 04/11/22 05:14 05:14 15:15 WBC 15.1 H 18.2 H Hgb Hct 45.0 H POC Hct MCV 100.2 H MPV Neut % (Auto) 89.4 H 91.6 H Lymph % (Auto) 6.1 L 3.7 L Lymph # (Auto) 0.92 L 0.68 L Immature Gran # 0.06 H 0.09 H Absolute Neutrophils 13.51 H 16.74 H PT VBG Lactic Acid POC Potassium Potassium Chloride 94 L Carbon Dioxide Anion Gap 17.0 H POC BUN BUN 37 H Creatinine 7.0 H* POC Creatinine Glucose POC Glucose Calcium 8.2 L POC WB Ioniz Calcium Iron 19 L TIBC 180 L Transferrin % Sat 11 L Ferritin 1075.0 H Lipase 04/11/22 04/11/22 04/11/22 14:30 14:30 13:30 WBC Hgb Hct POC Hct MCV MPV Neut % (Auto) Lymph % (Auto) Lymph # (Auto) Immature Gran # Absolute Neutrophils PT 15.1 H VBG Lactic Acid 2.7 H POC Potassium Potassium 5.5 H Chloride Carbon Dioxide 21 L Anion Gap 22.0 H POC BUN BUN 60 H Creatinine 10.5 H* POC Creatinine Glucose 136 H POC Glucose Calcium 8.2 L POC WB Ioniz Calcium Iron TIBC Transferrin % Sat Ferritin Lipase 04/11/22 04/11/22 04/11/22 10:09 10:09 10:03 WBC 15.7 H Hgb 16.5 H Hct 52.5 H POC Hct 50.0 H MCV 102.1 H MPV 10.7 H Neut % (Auto) 93.5 H Lymph % (Auto) 3.0 L Lymph # (Auto) 0.47 L Immature Gran # 0.08 H Absolute Neutrophils 14.77 H PT VBG Lactic Acid POC Potassium 6.1 H* Potassium Chloride Carbon Dioxide Anion Gap POC BUN 84 H BUN Creatinine POC Creatinine 11.9 H* Glucose POC Glucose 125 H Calcium POC WB Ioniz Calcium 0.76 L Iron TIBC Transferrin % Sat Ferritin Lipase 74 H Meds: Medications Cyclobenzaprine HCl (Cyclobenzaprine 10 Mg Tablet) 10 mg PO TIDP PRN PRN Reason: Muscle Spasm Last Admin: 04/13/22 08:21 Dose: 10 mg Diagnostic Test (Pha) (Accu-Chek 1 Each Strip) 1 each FS UD PRN PRN Reason: DM Stop: 04/13/22 16:51 Heparin Sodium (Porcine) (Heparin 5,000 Unit/Ml Vial) 5,000 unit SQ Q12 [place] Last Admin: 04/13/22 08:20 Dose: Not Given Piperacillin Sod/Tazobactam (Sod 2.25 gm/ Dextrose) 50 mls @ 100 mls/hr IV Q8H [place]; Protocol Last Infusion: 04/13/22 05:24 Dose: Infused Ketamine HCl (Ketamine 50 Mg/Ml Ml) 50 mg IV ONCE PRN PRN Reason: Sedation Stop: 04/13/22 16:51 Midazolam HCl (Midazolam 2 Mg/2 Ml Vial) 0 mg IV ONCE [place] Stop: 04/13/22 16:51 Pantoprazole Sodium (Pantoprazole 40 Mg Vial) 40 mg IV BIDAC [place] Last Admin: 04/13/22 08:19 Dose: 40 mg Propofol (Propofol 200 Mg/20 Ml Vial) 0 mg IV UD [place] Stop: 04/13/22 16:51 Sodium Chloride (0.9 % Sodium Chloride 10 Ml Syringe) 10 ml IV Q8 [place] Last Admin: 04/13/22 04:54 Dose: 10 ml Tramadol HCl (Tramadol 50 Mg Tablet) 50 mg PO Q6HP PRN; Protocol PRN Reason: Pain Last Admin: 04/12/22 21:02 Dose: 50 mg A/P Assessment and plan (1) Nausea: Status: Chronic (2) Anemia: Status: Chronic Comment: Managed by nephrology with Juany once weekly Qualifiers: Anemia type: due to chronic kidney disease Chronic kidney disease stage: on chronic dialysis Qualified Code(s): N18.6 - End stage renal disease; D63.1 - Anemia in chronic kidney disease; Z99.2 - Dependence on renal dialysis (3) ESRD on hemodialysis: Status: Chronic Comment: On dialysis Monday (4) Arteriovenous fistula for hemodialysis in place, primary: Status: Chronic Comment: Placed June 2019. (5) Abdominal pain: Status: Acute (6) Melena: Status: Acute (7) CAD (coronary artery disease): Status: Acute Narrative A/P Narrative: The patient became acutely ill after eating pizza. She may have developed gastroenteritis or food poisoning. Because she has complaints of melena in the setting of dual antiplatelets, she will be scheduled for upper and lower endoscopy. She states that she did have a colonoscopy approximately 6 months ago which was unrevealing. CT abdomen pelvis was concerning for abnormal descending colon with wall thickening and luminal irregularity suspicious for neoplasm. We will keep the patient n.p.o., start Protonix 40 mg IV daily, and hold her aspirin and Plavix. 04/12: The patient's H&H is slightly down to 13.6/42.5 today. We will continue Zosyn for possible necrotic colitis of the descending colon. Her white blood cell count is down to 15.1. She underwent EGD today. Continue Protonix 40 mg IV twice daily and she will have a follow-up colonoscopy tomorrow. Gastroenterology is following. 04/13: EGD report is not available in the chart. She has a colonoscopy scheduled this afternoon which will likely help establish a diagnosis. The patient will likely be discharged tomorrow morning. Time Spent With Patient Time: Total time spent is greater than 50% in coordination of care (as documented) at patient's floor/unit and/or counseling patient: Total time spent with greater than 50% in coordination of care (as documented) at patient's floor/unit and/or counseling patient:: 25 - 35 minutes QUALITY VTE Deep Vein Thrombosis/Pulmonary Embolism Present on Admission: No
[2022-04-13] MEDS: ONDANSETRON 4 MG/2 ML VIAL IV PRN (23:38)
[2022-04-13] MEDS ORDERED: ONDANSETRON 4 MG/2 ML VIAL ONE (23:43)
[2022-04-14] MEDS: PIPERACILLIN SODIUM/TAZOBACTAM 2.25 GM in DEXTROSE 5% IN WATER 50 ML IV SCH ×3 (05:16→22:00)
[2022-04-14] MEDS: 0.9 % SODIUM CHLORIDE 10 ML SYRINGE IV SCH ×3 (05:16→22:01)
[2022-04-14] MEDS: CYCLOBENZAPRINE 10 MG TABLET PO PRN ×2 (05:16→20:23)
[2022-04-14] MEDS: ONDANSETRON 4 MG/2 ML VIAL IV PRN ×3 (05:30→20:20)
[2022-04-14] MEDS ORDERED: ONDANSETRON 4 MG/2 ML VIAL ONE (05:37)
[2022-04-14] MEDS ORDERED: KETAMINE 50 MG/ML ML IV PRN (06:14)
[2022-04-14] MEDS ORDERED: PROPOFOL 200 MG/20 ML VIAL IV SCH (06:15)
[2022-04-14] MEDS ORDERED: MIDAZOLAM 2 MG/2 ML VIAL IV SCH (06:15)
[2022-04-14 06:57] LABS: Basophils # (Auto) 0.08 K/mcL (0.00-0.30); Basophils % (Auto) 0.7 % (0.0-2.0); Eosinophils # (Auto) 0.21 K/mcL (0.00-0.70); Eosinophils % (Auto) 1.7 % (0.0-7.0); Hematocrit 45.4 % (34.1-44.9); Lymphocytes # (Auto) 1.14 K/mcL (1.50-4.80); Lymphocytes % (Auto) 9.4 % (15.5-49.0); Mean Cell Volume 102.5 fL (80.0-100.0); Mean Corpuscular HGB Conc 30.8 g/dL (31.0-36.0); Monocytes # (Auto) 0.57 K/mcL (0.10-0.90); Monocytes % (Auto) 4.7 % (1.0-12.0); Neutrophils % (Auto) 82.9 % (38.0-78.0); Platelet Count 359 K/mcL (140-440); RBC 4.43 M/mcL (3.59-5.38); Red Cell Distribution Width 13.3 % (11.5-14.5); WBC 12.2 K/mcL (4.5-11.0)
[2022-04-14 07:44] LABS: ALT/SGPT 6 U/L (<40); AST/SGOT 12 U/L (<32); Albumin 3.5 gm/dL (3.2-5.2); Albumin/Globulin Ratio 0.9 (1.0-2.3); Alkaline Phosphatase 75 U/L (39-117); Bilirubin,Direct 0.2 mg/dL (<0.3); Bilirubin,Total 0.7 mg/dL (0.1-1.0); Blood Urea Nitrogen 29 mg/dL (8-23); Calcium 8.6 mg/dL (8.6-10.4); Carbon Dioxide 19 mmol/L (22-30); Chloride 90 mmol/L (96-108); Globulin 3.9 gm/dL (2.2-3.7); Glomerular Filtration Rate 6; Glucose 96 mg/dL (70-105); Lactate Dehydrogenase 227 U/L (135-225); Phosphorous 6.3 mg/dL (2.5-4.5); Triglycerides 185 mg/dL (<150); Uric Acid 4.2 mg/dL (2.5-8.0)
--- NOTE | 2022-04-14 07:56 | Nephrology Progress Note ---
SUBJECTIVE Subjective Patient information: Note initiated : 04/14/22 at 7:53 am Patient: Gayla Hewitt 66 y/o F admitted on 04/11/22 for Lower Quadrant Pain. Chief Complaint: Weakness Principal diagnosis: Melena Pertinent ROS: Feels better Weakness Constitutional Vitals: Vital Signs Temp Pulse Resp BP Pulse Ox O2 Del Method 97.2 F 95 H 14 115/68 92 04/14/22 07:21 04/14/22 07:21 04/14/22 07:21 04/14/22 07:21 04/14/22 07:21 04/14/22 07:21 Period Temp Pulse Resp BP Sys/Kirk Pulse Ox O2 Del Method O2 Flow Rate Last 24 Hr 96.9 F-99.8 F 89-104 - 90-140/54-84 90-94 Room Air-Room Air Intake and Output 04/13/22 04/14/22 04/14/22 21:59 05:59 13:59 Intake Total 660 300 Output Total 0 Balance 660 300 Weight 178 lb 14.4 oz Intake & Output: Intake & Output 04/13/22 04/14/22 04/14/22 21:59 05:59 13:59 Intake Total 660 300 Output Total 0 Balance 660 300 Weight 178 lb 14.4 oz Intake: IV 50 50 Zosyn 2.25 gm In Dextrose 5% in 50 50 Water 50 ml @ 100 mls/hr IV Q8H [facility] Rx#:[id number] Oral 610 250 Output: Void Amount 0 Other: Meal Dinner Jello Percent of Meal Consumed 75% 100% Feeding Ability Assist with Tray Set Up Independent Stool Size Moderate Stool Color Brown Green Stool Consistency Liquid Watery # Voids 0 # Bowel Movements 1 General appearance: cooperative and no acute distress Head Head exam: Present atraumatic and normal inspection ENT ENT exam: Present mucous membranes moist Respiratory Respiratory exam: Present CTAB Cardiovascular Cardiovascular exam: Present normal rate and rhythm GI/Abdominal GI/Abdominal exam: Present soft Neurological Exam Neurological exam: Present alert and oriented X3 Psychiatric Psychiatric exam: Present normal affect and normal mood Skin Skin exam: Present pallor A/P Assessment and plan (1) ESRD (end stage renal disease) on dialysis: Assessment and plan: Gayla Huff is a 66-year-old female with end stage renal disease on hemodialysis, admitted on 04/11/22. She presented to [facility] ED for abdominal pain nausea, vomiting and diarrhea. Labs were significant for WBC 15.7, K 6.1, lactic acid 2.7, lipase 74. CT abdomen pelvis wo con reported as abnormal descending colon with wall thickening and luminal irregularity with mild surrounding infiltration, suspicious for neoplasm and colonoscopy is recommended. In ED, she had several loose stools that appeared to be melanotic. Nephrology consultation was requested for end stage renal disease. End stage renal disease on hemodialysis on MWF. Progress: HD on 04/11/22 and 04/13/22. Normal EGD on 04/13/22. Hyperkalemia, resolved. Metabolic acidosis, mild. Hyponatremia, mild. Recommendations/Plan: Continue hemodialysis on MWF. Status: Chronic Time Spent With Patient Time: Total time spent is greater than 50% in coordination of care (as documented) at patient's floor/unit and/or counseling patient:
[2022-04-14] MEDS: PANTOPRAZOLE 40 MG VIAL IV SCH ×2 (08:38→17:44)
[2022-04-14] MEDS: HEPARIN 5,000 UNIT/ML VIAL SQ SCH (10:03)
[2022-04-14] MEDS: traMADol 50 MG TABLET PO PRN (10:55)
--- NOTE | 2022-04-14 12:28 | Internal Med Progress Note ---
SUBJECTIVE Subjective Patient information: Note initiated : 04/14/22 at 12:23 pm Service Date, if different from initiated Date: [] Patient: Gayla Hewitt 66 y/o F admitted on 04/11/22 for Lower Quadrant Pain. Chief Complaint: [] Principal diagnosis: Melena Interval history: The patient became acutely ill after eating pizza. She may have developed gastroenteritis or food poisoning. Because she has complaints of melena in the setting of dual antiplatelets, she will be scheduled for upper and lower endosco py. She states that she did have a colonoscopy approximately 6 months ago which was unrevealing. CT abdomen pelvis was concerning for abnormal descending colon with wall thickening and luminal irregularity suspicious for neoplasm. We will keep the patient n.p.o., start Protonix 40 mg IV daily, and hold her aspirin and Plavix. 04/12: The patient's H&H is slightly down to 13.6/42.5 today. We will continue Zosyn for possible necrotic colitis of the descending colon. Her white blood cell count is down to 15.1. She underwent EGD today. Continue Protonix 40 mg IV twice daily and she will have a follow-up colonoscopy tomorrow. Gastroenterology is following. 04/13: EGD report is not available in the chart. She has a colonoscopy scheduled this afternoon which will likely help establish a diagnosis. The patient will likely be discharged tomorrow morning. 04/14-patient undergoing bowel prep for colonoscopy today around 3 PM. Continues to experience abdominal pain/intermittent hematochezia. Feels quite anxious and distressed. Ongoing hemodialysis per nephrology. White count down from 15- 12.2, hemoglobin 14, Constitutional Vitals: Vital Signs Temp Pulse Resp BP Pulse Ox O2 Del Method 97 F 90 17 94/57 93 04/14/22 11:53 04/14/22 11:53 04/14/22 11:53 04/14/22 11:53 04/14/22 11:53 04/14/22 11:53 Period Temp Pulse Resp BP Sys/Kirk Pulse Ox O2 Del Method O2 Flow Rate Last 24 Hr 97 F-99.8 F 90-103 94-119/54-71 90-93 Room Air-Room Air Intake and Output 04/13/22 04/14/22 04/14/22 21:59 05:59 13:59 Intake Total 660 350 Output Total 0 Balance 660 350 Weight 81.148 kg Alert oriented Nonlabored breathing No anxiety Intake & Output: Intake & Output 04/13/22 04/14/22 04/14/22 21:59 05:59 13:59 Intake Total 660 350 Output Total 0 Balance 660 350 Weight 81.148 kg Intake: IV 50 100 Zosyn 2.25 gm In Dextrose 5% in 50 100 Water 50 ml @ 100 mls/hr IV Q8H [facility] Rx#:[id number] Oral 610 250 Output: Void Amount 0 Other: Meal Dinner Jello Percent of Meal Consumed 75% 100% Feeding Ability Assist with Tray Set Up Independent Stool Size Moderate Small Stool Color Brown Brown Green Stool Consistency Liquid Liquid Watery # Voids 0 # Bowel Movements 1 1 OBJ DATA Labs CBC & Chem 7: 04/14/22 05:55 04/14/22 04:00 Labs: Abnormal Lab Results 04/14/22 04/14/22 04/12/22 05:55 04:00 05:14 WBC 12.2 H Hgb Hct 45.4 H MCV 102.5 H MCHC 30.8 L MPV Immature Gran % (Auto) 0.6 H Neut % (Auto) 82.9 H Lymph % (Auto) 9.4 L Lymph # (Auto) 1.14 L Immature Gran # 0.07 H Absolute Neutrophils 10.16 H PT VBG Lactic Acid Potassium Chloride 90 L 94 L Carbon Dioxide 19 L Anion Gap 24.0 H 17.0 H BUN 29 H 37 H Creatinine 6.8 H* 7.0 H* Glucose Calcium 8.2 L Phosphorus 6.3 H* Magnesium 2.6 H Iron 19 L TIBC 180 L Transferrin % Sat 11 L Ferritin 1075.0 H Lactate Dehydrogenase 227 H Globulin 3.9 H Albumin/Globulin Ratio 0.9 L Triglycerides 185 H 04/12/22 04/11/22 04/11/22 05:14 15:15 14:30 WBC 15.1 H 18.2 H Hgb Hct 45.0 H MCV 100.2 H MCHC MPV Immature Gran % (Auto) Neut % (Auto) 89.4 H 91.6 H Lymph % (Auto) 6.1 L 3.7 L Lymph # (Auto) 0.92 L 0.68 L Immature Gran # 0.06 H 0.09 H Absolute Neutrophils 13.51 H 16.74 H PT VBG Lactic Acid Potassium 5.5 H Chloride Carbon Dioxide 21 L Anion Gap 22.0 H BUN 60 H Creatinine 10.5 H* Glucose 136 H Calcium 8.2 L Phosphorus Magnesium Iron TIBC Transferrin % Sat Ferritin Lactate Dehydrogenase Globulin Albumin/Globulin Ratio Triglycerides 04/11/22 04/11/22 04/11/22 14:30 13:30 10:09 WBC 15.7 H Hgb 16.5 H Hct 52.5 H MCV 102.1 H MCHC MPV 10.7 H Immature Gran % (Auto) Neut % (Auto) 93.5 H Lymph % (Auto) 3.0 L Lymph # (Auto) 0.47 L Immature Gran # 0.08 H Absolute Neutrophils 14.77 H PT 15.1 H VBG Lactic Acid 2.7 H Potassium Chloride Carbon Dioxide Anion Gap BUN Creatinine Glucose Calcium Phosphorus Magnesium Iron TIBC Transferrin % Sat Ferritin Lactate Dehydrogenase Globulin Albumin/Globulin Ratio Triglycerides Meds: Medications Cyclobenzaprine HCl (Cyclobenzaprine 10 Mg Tablet) 10 mg PO TIDP PRN PRN Reason: Muscle Spasm Last Admin: 04/14/22 05:16 Dose: 10 mg Diagnostic Test (Pha) (Accu-Chek 1 Each Strip) 1 each FS UD PRN PRN Reason: DM Stop: 04/14/22 14:14 Piperacillin Sod/Tazobactam (Sod 2.25 gm/ Dextrose) 50 mls @ 100 mls/hr IV Q8H [place]; Protocol Last Infusion: 04/14/22 05:50 Dose: Infused Ketamine HCl (Ketamine 50 Mg/Ml Ml) 50 mg IV ONCE PRN PRN Reason: Sedation Stop: 04/14/22 14:14 Midazolam HCl (Midazolam 2 Mg/2 Ml Vial) 0 mg IV ONCE [place] Stop: 04/14/22 14:14 Ondansetron HCl (Ondansetron 4 Mg/2 Ml Vial) 4 mg IV Q4HP PRN PRN Reason: Nausea And Vomiting Last Admin: 04/14/22 10:55 Dose: 4 mg Pantoprazole Sodium (Pantoprazole 40 Mg Vial) 40 mg IV BIDAC [place] Last Admin: 04/14/22 08:38 Dose: 40 mg Propofol (Propofol 200 Mg/20 Ml Vial) 0 mg IV UD [place] Stop: 04/14/22 14:14 Sodium Chloride (0.9 % Sodium Chloride 10 Ml Syringe) 10 ml IV Q8 [place] Last Admin: 04/14/22 05:16 Dose: 10 ml Tramadol HCl (Tramadol 50 Mg Tablet) 50 mg PO Q6HP PRN; Protocol PRN Reason: Pain Last Admin: 04/14/22 10:55 Dose: 50 mg A/P Narrative A/P Narrative: * Lower GI bleed/melena, colonoscopy today. Ongoing bowel prep, hemoglobin stable on 14. Abnormal descending colon suspicious for neoplasm on imaging * ESRD on dialysis management nephrology, LUE fistula * Abdominal pain -CT abdomen suspicious for abdominal descending colon with possible plans. Colonoscopy today. Continue pain management on opioids * History of CAD on aspirin Plavix at home. Transiently held Plan * Review post colonoscopy * HD per nephrology * Pain management * Pre-existing medical condition management home medications * PT OT/nutrition support * Discharge planning Time Spent With Patient Time: Total time spent is greater than 50% in coordination of care (as documented) at patient's floor/unit and/or counseling patient: Total time spent with greater than 50% in coordination of care (as documented) at patient's floor/unit and/or counseling patient:: 25 - 35 minutes QUALITY VTE Deep Vein Thrombosis/Pulmonary Embolism Present on Admission: No
[2022-04-14] MEDS: HYDROcodone/APAP 5/325MG TABLET PO PRN ×2 (15:00→20:20)
[2022-04-14] MEDS ORDERED: PROPOFOL 200 MG/20 ML VIAL IV ONE (16:23)
[2022-04-15] MEDS: HYDROcodone/APAP 5/325MG TABLET PO PRN ×3 (03:32→23:19)
[2022-04-15] MEDS: CYCLOBENZAPRINE 10 MG TABLET PO PRN ×3 (03:40→23:19)
[2022-04-15] MEDS: 0.9 % SODIUM CHLORIDE 10 ML SYRINGE IV SCH ×4 (05:47→23:19)
[2022-04-15] MEDS: PIPERACILLIN SODIUM/TAZOBACTAM 2.25 GM in DEXTROSE 5% IN WATER 50 ML IV SCH ×3 (05:47→23:20)
[2022-04-15] MEDS: PANTOPRAZOLE 40 MG VIAL IV SCH ×2 (07:06→17:42)
--- NOTE | 2022-04-15 08:22 | Nephrology Progress Note ---
SUBJECTIVE Subjective Patient information: Note initiated : 04/15/22 at 8:22 am Patient: Gayla Hewitt 66 y/o F admitted on 04/11/22 for Lower Quadrant Pain. Chief Complaint: Pain Principal diagnosis: Melena Pertinent ROS: Pain No nausea No melena Weakness Constitutional Vitals: Vital Signs Temp Pulse Resp BP Pulse Ox O2 Del Method O2 Flow Rate 97.7 F 83 18 125/73 96 0.5 04/15/22 06:42 04/15/22 06:42 04/15/22 06:42 04/15/22 06:42 04/15/22 06:42 04/15/22 06:42 04/15/22 06:42 Period Temp Pulse Resp BP Sys/Kirk Pulse Ox O2 Del Method O2 Flow Rate Last 24 Hr 97 F-98.6 F 83-94 14-18 76-142/54-90 90-100 Nasal Cannula-Room Air 0.5-2 Intake and Output 04/14/22 04/15/22 04/15/22 21:59 05:59 13:59 Intake Total 50 490 50 Balance 50 490 50 Weight 177 lb 5.12 oz Intake & Output: Intake & Output 04/14/22 04/15/22 04/15/22 21:59 05:59 13:59 Intake Total 50 490 50 Balance 50 490 50 Weight 177 lb 5.12 oz Intake: IV 50 50 50 Zosyn 2.25 gm In Dextrose 5% in 50 50 50 Water 50 ml @ 100 mls/hr IV Q8H [facility] Rx#:[id number] Oral 0 440 0 General appearance: cooperative, no acute distress and obese Head Head exam: Present atraumatic and normal inspection Respiratory Respiratory exam: Present decreased breath sounds Cardiovascular Cardiovascular exam: Present normal rate and rhythm GI/Abdominal GI/Abdominal exam: Present soft Neurological Exam Neurological exam: Present alert and oriented X3 Psychiatric Psychiatric exam: Present normal affect and normal mood Skin Skin exam: Present warm A/P Assessment and plan (1) ESRD (end stage renal disease) on dialysis: Assessment and plan: Gayla Huff is a 66-year-old female with end stage renal disease on hemodialysis, admitted on 04/11/22. She presented to [facility] ED for abdominal pain nausea, vomiting and diarrhea. Labs were significant for WBC 15.7, K 6.1, lactic acid 2.7, lipase 74. CT abdomen pelvis wo con reported as abnormal descending colon with wall thickening and luminal irregularity with mild surrounding infiltration, suspicious for neoplasm and colonoscopy is recommended. In ED, she had several loose stools that appeared to be melanotic. Nephrology consultation was requested for end stage renal disease. End stage renal disease on hemodialysis on MWF. Progress: HD on 04/11/22 and 04/13/22. Normal EGD on 04/13/22. Colonoscopy on 04/14/22. Recommendations/Plan: Hemodialysis today as inpatient or outpatient. The patient seen and evaluated during dialysis at 14:16. Status: Chronic Time Spent With Patient Time: Total time spent is greater than 50% in coordination of care (as documented) at patient's floor/unit and/or counseling patient:
[2022-04-15 08:34] LABS: Basophils # (Auto) 0.04 K/mcL (0.00-0.30); Basophils % (Auto) 0.5 % (0.0-2.0); Eosinophils # (Auto) 0.23 K/mcL (0.00-0.70); Eosinophils % (Auto) 2.8 % (0.0-7.0); Hematocrit 41.9 % (34.1-44.9); Hemoglobin 13.2 g/dL (11.2-15.7); Lymphocytes # (Auto) 0.88 K/mcL (1.50-4.80); Lymphocytes % (Auto) 10.7 % (15.5-49.0); Mean Cell Volume 99.3 fL (80.0-100.0); Mean Corpuscular HGB Conc 31.5 g/dL (31.0-36.0); Mean Platelet Volume 9.4 fL (7.4-10.4); Monocytes # (Auto) 0.42 K/mcL (0.10-0.90); Monocytes % (Auto) 5.1 % (1.0-12.0); Neutrophils % (Auto) 80.3 % (38.0-78.0); Platelet Count 354 K/mcL (140-440); RBC 4.22 M/mcL (3.59-5.38); Red Cell Distribution Width 12.9 % (11.5-14.5); WBC 8.2 K/mcL (4.5-11.0)
[2022-04-15 09:08] LABS: ALT/SGPT 6 U/L (<40); AST/SGOT 9 U/L (<32); Albumin 3.4 gm/dL (3.2-5.2); Albumin/Globulin Ratio 0.9 (1.0-2.3); Alkaline Phosphatase 68 U/L (39-117); Bilirubin,Direct < 0.2 mg/dL (0-0.3); Bilirubin,Total 0.5 mg/dL (0.1-1.0); Blood Urea Nitrogen 37 mg/dL (8-23); Calcium 8.3 mg/dL (8.6-10.4); Carbon Dioxide 24 mmol/L (22-30); Chloride 90 mmol/L (96-108); Globulin 3.7 gm/dL (2.2-3.7); Glomerular Filtration Rate 4; Glucose 62 mg/dL (70-105); Lactate Dehydrogenase 185 U/L (135-225); Phosphorous 7.9 mg/dL (2.5-4.5); Triglycerides 172 mg/dL (<150); Uric Acid 5.8 mg/dL (2.5-8.0)
--- NOTE | 2022-04-15 09:24 | Internal Med Progress Note ---
SUBJECTIVE Subjective Patient information: Note initiated : 04/15/22 at 9:21 am Service Date, if different from initiated Date: [] Patient: Gayla Hewitt 66 y/o F admitted on 04/11/22 for Lower Quadrant Pain. Chief Complaint: [] Principal diagnosis: Melena Interval history: The patient became acutely ill after eating pizza. She may have developed gastroenteritis or food poisoning. Because she has complaints of melena in the setting of dual antiplatelets, she will be scheduled for upper and lower endoscopy. She states that she did have a colonoscopy approximately 6 months ago which was unrevealing. CT abdomen pelvis was concerning for abnormal descending colon with wall thickening and luminal irregularity suspicious for neoplasm. We will keep the patient n.p.o., start Protonix 40 mg IV daily, and hold her aspirin and Plavix. 04/12: The patient's H&H is slightly down to 13.6/42.5 today. We will continue Zosyn for possible necrotic colitis of the descending colon. Her white blood cell count is down to 15.1. She underwent EGD today. Continue Protonix 40 mg IV twice daily and she will have a follow-up colonoscopy tomorrow. Gastroenterology is following. 04/13: EGD report is not available in the chart. She has a colonoscopy scheduled this afternoon which will likely help establish a diagnosis. The patient will likely be discharged tomorrow morning. 04/14-patient undergoing bowel prep for colonoscopy today around 3 PM. Continues to experience abdominal pain/intermittent hematochezia. Feels quite anxious and distressed. Ongoing hemodialysis per nephrology. White count down from 15- 12.2, hemoglobin 14 04/15-patient postprocedure, ischemic colitis severe in nature per GI. On gradual diet advancement. Persistent bloody bowels. However nontoxic with downtrending white count. Continuing antibiotic coverage. No overnight fever chills. Cautious monitoring and low threshold for imaging if clinical change noted in the next 24 to 48 hours. Constitutional Vitals: Vital Signs Temp Pulse Resp BP Pulse Ox O2 Del Method O2 Flow Rate 97.7 F 83 18 125/73 96 0.5 04/15/22 06:42 04/15/22 06:42 04/15/22 06:42 04/15/22 06:42 04/15/22 06:42 04/15/22 06:42 04/15/22 06:42 Period Temp Pulse Resp BP Sys/Kirk Pulse Ox O2 Del Method O2 Flow Rate Last 24 Hr 97 F-98.6 F 83-94 14-18 76-142/54-90 90-100 Nasal Cannula-Room Air 0.5-2 Intake and Output 04/14/22 04/15/22 04/15/22 21:59 05:59 13:59 Intake Total 50 490 50 Balance 50 490 50 Weight 80.431 kg Alert oriented Nonlabored breathing Minimally distended tender abdomen Anxious Intake & Output: Intake & Output 04/14/22 04/15/22 04/15/22 21:59 05:59 13:59 Intake Total 50 490 50 Balance 50 490 50 Weight 80.431 kg Intake: IV 50 50 50 Zosyn 2.25 gm In Dextrose 5% in 50 50 50 Water 50 ml @ 100 mls/hr IV Q8H [place] Rx#:[id number] Oral 0 440 0 OBJ DATA Labs CBC & Chem 7: 04/15/22 07:58 04/15/22 07:58 Labs: Abnormal Lab Results 04/15/22 04/15/22 04/14/22 07:58 07:58 05:55 WBC 12.2 H Hct 45.4 H MCV 102.5 H MCHC 30.8 L Immature Gran % (Auto) 0.6 H 0.6 H Neut % (Auto) 80.3 H 82.9 H Lymph % (Auto) 10.7 L 9.4 L Lymph # (Auto) 0.88 L 1.14 L Immature Gran # 0.07 H Absolute Neutrophils 10.16 H Chloride 90 L Carbon Dioxide Anion Gap 23.0 H BUN 37 H Creatinine 8.9 H* Glucose 62 L Calcium 8.3 L Phosphorus 7.9 H* Magnesium Lactate Dehydrogenase Globulin Albumin/Globulin Ratio 0.9 L Triglycerides 172 H 04/14/22 04:00 WBC Hct MCV MCHC Immature Gran % (Auto) Neut % (Auto) Lymph % (Auto) Lymph # (Auto) Immature Gran # Absolute Neutrophils Chloride 90 L Carbon Dioxide 19 L Anion Gap 24.0 H BUN 29 H Creatinine 6.8 H* Glucose Calcium Phosphorus 6.3 H* Magnesium 2.6 H Lactate Dehydrogenase 227 H Globulin 3.9 H Albumin/Globulin Ratio 0.9 L Triglycerides 185 H Meds: Medications Hydrocodone Bitart/Acetaminophen (Hydrocodone/Apap 5/325mg Tablet) 1 tab PO Q4- 6HP PRN; Protocol PRN Reason: Per Pain Protocol Last Admin: 04/15/22 03:32 Dose: 1 tab Cyclobenzaprine HCl (Cyclobenzaprine 10 Mg Tablet) 10 mg PO TIDP PRN PRN Reason: Muscle Spasm Last Admin: 04/15/22 03:40 Dose: 10 mg Piperacillin Sod/Tazobactam (Sod 2.25 gm/ Dextrose) 50 mls @ 100 mls/hr IV Q8H [place]; Protocol Last Infusion: 04/15/22 06:20 Dose: Infused Ondansetron HCl (Ondansetron 4 Mg/2 Ml Vial) 4 mg IV Q4HP PRN PRN Reason: Nausea And Vomiting Last Admin: 04/14/22 20:20 Dose: 4 mg Pantoprazole Sodium (Pantoprazole 40 Mg Vial) 40 mg IV BIDAC [place] Last Admin: 04/15/22 07:06 Dose: 40 mg Sodium Chloride (0.9 % Sodium Chloride 10 Ml Syringe) 10 ml IV Q8 [place] Last Admin: 04/15/22 05:47 Dose: 10 ml Tramadol HCl (Tramadol 50 Mg Tablet) 50 mg PO Q6HP PRN; Protocol PRN Reason: Pain Last Admin: 04/14/22 10:55 Dose: 50 mg A/P Narrative A/P Narrative: * Lower GI bleed/melena, colonoscopy today. Ischemic colitis on colonoscopy. Gradual clinical improvement noted. Low threshold for imaging if clinical worsening noted over the next 48 hours * ESRD on dialysis management per nephrology, LUE fistula * Abdominal pain secondary ischemic colitis, clinically improving on opioids * History of CAD on aspirin Plavix at home. Transiently held Plan * Diet advancement per GI * Continue HD per nephrology * Maintain pain management * Pre-existing medical condition management home medications * PT OT/nutrition support * Discharge planning Time Spent With Patient Time: Total time spent is greater than 50% in coordination of care (as documented) at patient's floor/unit and/or counseling patient: Total time spent with greater than 50% in coordination of care (as documented) at patient's floor/unit and/or counseling patient:: 25 - 35 minutes QUALITY VTE Deep Vein Thrombosis/Pulmonary Embolism Present on Admission: No
--- NOTE | 2022-04-15 13:44 | Colonoscopy Procedure Note ---
Colonoscopy Procedure Notes Procedure Information Patient information: Note initiated : 04/15/22 at 1:41 pm Patient: Gayla Hewitt 66 y/o F admitted on 04/11/22 for Lower Quadrant Pain. Pre-op diagnosis general: Abnormal Ct. Diarrhea. BRBPR. Post-op diagnosis general: Ischemic colitis and ileitis. Date of Procedure: 04/14/22 Procedure: Colonoscopy with Bx Procedure narrative: The procedure, alternatives and risks were discussed with the patient and the patient's questions were answered. With endoscopist-administered IV sedation, the Olympus colonoscope was introduced into the rectum and advanced to the cecum. Ileocecal valve was identified, and intubated. Necrotic ulceration was seen in the proximal ascending, cecum and ileum. Special effort was made to examine as much of the terminal ileum as possible. At least 30 to 40 cm of the terminal ileum were examined. Biopsy was taken from the ileal mucosa and proximal ascending colon for histological examination. The colon otherwise appeared normal. Assessment: Ischemic colitis and ileitis. She may well recover but could require surgery.
[2022-04-15] MEDS: ONDANSETRON 4 MG/2 ML VIAL IV PRN (17:39)
[2022-04-15] MEDS: CALCIUM ACETATE 667 MG CAPSULE PO SCH (17:46)
[2022-04-16] MEDS: 0.9 % SODIUM CHLORIDE 10 ML SYRINGE IV SCH ×3 (05:02→22:53)
[2022-04-16] MEDS: PIPERACILLIN SODIUM/TAZOBACTAM 2.25 GM in DEXTROSE 5% IN WATER 50 ML IV SCH ×2 (05:02→19:12)
[2022-04-16 06:50] LABS: Basophils # (Auto) 0.08 K/mcL (0.00-0.30); Eosinophils # (Auto) 0.23 K/mcL (0.00-0.70); Eosinophils % (Auto) 2.9 % (0.0-7.0); Hematocrit 46.6 % (34.1-44.9); Hemoglobin 14.4 g/dL (11.2-15.7); Lymphocytes # (Auto) 0.98 K/mcL (1.50-4.80); Lymphocytes % (Auto) 12.4 % (15.5-49.0); Mean Cell Volume 101.5 fL (80.0-100.0); Mean Corpuscular HGB Conc 30.9 g/dL (31.0-36.0); Mean Platelet Volume 9.2 fL (7.4-10.4); Monocytes # (Auto) 0.41 K/mcL (0.10-0.90); Monocytes % (Auto) 5.2 % (1.0-12.0); Neutrophils % (Auto) 77.1 % (38.0-78.0); Platelet Count 373 K/mcL (140-440); RBC 4.59 M/mcL (3.59-5.38); Red Cell Distribution Width 12.9 % (11.5-14.5); WBC 7.9 K/mcL (4.5-11.0)
[2022-04-16] MEDS: PANTOPRAZOLE 40 MG VIAL IV SCH ×2 (06:52→19:43)
--- NOTE | 2022-04-16 07:10 | Nephrology Progress Note ---
SUBJECTIVE Subjective Patient information: Note initiated : 04/16/22 at 7:09 am Patient: Gayla Hewitt 66 y/o F admitted on 04/11/22 for Lower Quadrant Pain. Chief Complaint: Abdominal pain Principal diagnosis: Melena Pertinent ROS: Abdominal pain Weakness Constitutional Vitals: Vital Signs Temp Pulse Resp BP Pulse Ox O2 Del Method O2 Flow Rate 97.2 F 84 20 80/51 96 2 04/16/22 06:43 04/16/22 03:48 04/16/22 06:43 04/16/22 06:43 04/16/22 06:43 04/16/22 06:43 04/16/22 03:48 Period Temp Pulse Resp BP Sys/Kirk Pulse Ox O2 Del Method O2 Flow Rate Last 24 Hr 97.2 F-98.3 F 76-98 16-20 71-156/45-110 91-99 Nasal Cannula- Room Air 0.5-2 Intake and Output 04/15/22 04/16/22 04/16/22 21:59 05:59 13:59 Intake Total 290 500 Output Total 3000 200 Balance -2710 500 -200 Weight 170 lb Intake & Output: Intake & Output 04/15/22 04/16/22 04/16/22 21:59 05:59 13:59 Intake Total 290 500 Output Total 3000 200 Balance -2710 500 -200 Weight 170 lb Intake: IV 50 100 Zosyn 2.25 gm In Dextrose 5% in 50 100 Water 50 ml @ 100 mls/hr IV Q8H [facility] Rx#:[id number] Oral 240 400 Output: Void Amount 0 Stool 200 Hemodialysis UF 3000 Other: Stool Size Moderate Stool Color Green Stool Consistency Liquid # of times incontinent of 1 Bowels General appearance: cooperative, no acute distress and obese Head Head exam: Present atraumatic and normal inspection Respiratory Respiratory exam: Present normal respiratory exam Cardiovascular Cardiovascular exam: Present normal rate and rhythm GI/Abdominal GI/Abdominal exam: Present soft Neurological Exam Neurological exam: Present alert and oriented X3 Psychiatric Psychiatric exam: Present normal affect and normal mood Skin Skin exam: Present warm A/P Assessment and plan (1) ESRD (end stage renal disease) on dialysis: Assessment and plan: Gayla Huff is a 66-year-old female with end stage renal disease on hemodialysis, admitted on 04/11/22. She presented to [facility] ED for abdominal pain nausea, vomiting and diarrhea. Labs were significant for WBC 15.7, K 6.1, lactic acid 2.7, lipase 74. CT abdomen pelvis wo con reported as abnormal descending colon with wall thickening and luminal irregularity with mild surrounding infiltration, suspicious for neoplasm and colonoscopy is recommended. In ED, she had several loose stools that appeared to be melanotic. Nephrology consultation was requested for end stage renal disease. End stage renal disease on hemodialysis on MWF. Acute gastrointestinal bleeding with ischemic colitis and ileitis. Progress: HD on 04/11/22, 04/13/22, 04/15/22. EGD on 04/13/22: Normal. Colonoscopy on 04/14/22: Ischemic colitis and ileitis. Recommendations/Plan: Next hemodialysis on Monday as inpatient or outpatient. Status: Chronic Time Spent With Patient Time: Total time spent is greater than 50% in coordination of care (as documented) at patient's floor/unit and/or counseling patient:
[2022-04-16 07:50] LABS: ALT/SGPT 6 U/L (<40); AST/SGOT 11 U/L (<32); Albumin 3.7 gm/dL (3.2-5.2); Alkaline Phosphatase 67 U/L (39-117); Bilirubin,Direct < 0.2 mg/dL (0-0.3); Bilirubin,Total 0.5 mg/dL (0.1-1.0); Blood Urea Nitrogen 21 mg/dL (8-23); Carbon Dioxide 25 mmol/L (22-30); Chloride 88 mmol/L (96-108); Globulin 3.7 gm/dL (2.2-3.7); Glomerular Filtration Rate 6; Glucose 82 mg/dL (70-105); Lactate Dehydrogenase 196 U/L (135-225); Phosphorous 5.9 mg/dL (2.5-4.5); Triglycerides 173 mg/dL (<150); Uric Acid 3.8 mg/dL (2.5-8.0)
--- NOTE | 2022-04-16 08:24 | Internal Med Progress Note ---
SUBJECTIVE Subjective Patient information: Note initiated : 04/16/22 at 8:21 am Service Date, if different from initiated Date: [] Patient: Gayla Hewitt 66 y/o F admitted on 04/11/22 for Lower Quadrant Pain. Chief Complaint: [] Principal diagnosis: Melena Interval history: The patient became acutely ill after eating pizza. She may have developed gastroenteritis or food poisoning. Because she has complaints of melena in the setting of dual antiplatelets, she will be scheduled for upper and lower endoscopy. She states that she did have a colonoscopy approximately 6 months ago which was unrevealing. CT abdomen pelvis was concerning for abnormal descending colon with wall thickening and luminal irregularity suspicious for neoplasm. We will keep the patient n.p.o., start Protonix 40 mg IV daily, and hold her aspirin and Plavix. 04/12: The patient's H&H is slightly down to 13.6/42.5 today. We will continue Zosyn for possible necrotic colitis of the descending colon. Her white blood cell count is down to 15.1. She underwent EGD today. Continue Protonix 40 mg IV twice daily and she will have a follow-up colonoscopy tomorrow. Gastroenterology is following. 04/13: EGD report is not available in the chart. She has a colonoscopy scheduled this afternoon which will likely help establish a diagnosis. The patient will likely be discharged tomorrow morning. 04/14-patient undergoing bowel prep for colonoscopy today around 3 PM. Continues to experience abdominal pain/intermittent hematochezia. Feels quite anxious and distressed. Ongoing hemodialysis per nephrology. White count down from 15- 12.2, hemoglobin 14 04/15-patient postprocedure, ischemic colitis severe in nature per GI. On gradual diet advancement. Persistent bloody bowels. However nontoxic with downtrending white count. Continuing antibiotic coverage. No overnight fever chills. Cautious monitoring and low threshold for imaging if clinical change noted in the next 24 to 48 hours. 04/16-patient doing well. No overnight events. Abdominal pain much improved. No further bloody bowels except for all bleeding smeared blood. Hemoglobin stable at 14. Nontoxic, normal white count, DC antibiotics. Anticipate disc harge on Monday pending clinical improvement. Advance to full liquids. Avoid constipation, hemodialysis on Monday Constitutional Vitals: Vital Signs Temp Pulse Resp BP Pulse Ox O2 Del Method O2 Flow Rate 97.2 F 84 20 80/51 96 2 04/16/22 06:43 04/16/22 03:48 04/16/22 06:43 04/16/22 06:43 04/16/22 06:55 04/16/22 06:55 04/16/22 03:48 Period Temp Pulse Resp BP Sys/Kirk Pulse Ox O2 Del Method O2 Flow Rate Last 24 Hr 97.2 F-98.3 F 76-98 16-20 71-156/45-110 91-99 Nasal Cannula- Room Air 0.5-2 Intake and Output 04/15/22 04/16/22 04/16/22 21:59 05:59 13:59 Intake Total 290 500 Output Total 3000 200 Balance -2710 500 -200 Weight 77.111 kg Alert oriented Nonlabored breathing No anxiety Nondistended abdomen minimally tender Intake & Output: Intake & Output 04/15/22 04/16/22 04/16/22 21:59 05:59 13:59 Intake Total 290 500 Output Total 3000 200 Balance -2710 500 -200 Weight 77.111 kg Intake: IV 50 100 Zosyn 2.25 gm In Dextrose 5% in 50 100 Water 50 ml @ 100 mls/hr IV Q8H [facility] Rx#:[id number] Oral 240 400 Output: Void Amount 0 Stool 200 Hemodialysis UF 3000 Other: Stool Size Moderate Stool Color Green Stool Consistency Liquid # of times incontinent of 1 Bowels OBJ DATA Labs CBC & Chem 7: 04/16/22 05:48 04/16/22 05:48 Labs: Abnormal Lab Results 04/16/22 04/16/22 04/15/22 05:48 05:48 07:58 WBC Hct 46.6 H MCV 101.5 H MCHC 30.9 L Immature Gran % (Auto) 1.4 H 0.6 H Neut % (Auto) 80.3 H Lymph % (Auto) 12.4 L 10.7 L Lymph # (Auto) 0.98 L 0.88 L Immature Gran # 0.11 H Absolute Neutrophils Chloride 88 L Carbon Dioxide Anion Gap 22.0 H BUN Creatinine 6.5 H* Glucose Calcium Phosphorus 5.9 H* Magnesium Lactate Dehydrogenase Globulin Albumin/Globulin Ratio Triglycerides 173 H 04/15/22 04/14/22 04/14/22 07:58 05:55 04:00 WBC 12.2 H Hct 45.4 H MCV 102.5 H MCHC 30.8 L Immature Gran % (Auto) 0.6 H Neut % (Auto) 82.9 H Lymph % (Auto) 9.4 L Lymph # (Auto) 1.14 L Immature Gran # 0.07 H Absolute Neutrophils 10.16 H Chloride 90 L 90 L Carbon Dioxide 19 L Anion Gap 23.0 H 24.0 H BUN 37 H 29 H Creatinine 8.9 H* 6.8 H* Glucose 62 L Calcium 8.3 L Phosphorus 7.9 H* 6.3 H* Magnesium 2.6 H Lactate Dehydrogenase 227 H Globulin 3.9 H Albumin/Globulin Ratio 0.9 L 0.9 L Triglycerides 172 H 185 H Meds: Medications Hydrocodone Bitart/Acetaminophen (Hydrocodone/Apap 5/325mg Tablet) 1 tab PO Q4- 6HP PRN; Protocol PRN Reason: Per Pain Protocol Last Admin: 04/15/22 23:19 Dose: 1 tab Aspirin (Aspirin 81 Mg Tab.Chew) 81 mg PO DAILY [facility] Calcium Acetate (Calcium Acetate 667 Mg Capsule) 1,334 mg PO TIDCC [facility] Last Admin: 04/15/22 17:46 Dose: 1,334 mg Cyclobenzaprine HCl (Cyclobenzaprine 10 Mg Tablet) 10 mg PO TIDP PRN PRN Reason: Muscle Spasm Last Admin: 04/15/22 23:19 Dose: 10 mg Piperacillin Sod/Tazobactam (Sod 2.25 gm/ Dextrose) 50 mls @ 100 mls/hr IV Q8H [facility]; Protocol Last Infusion: 04/16/22 05:35 Dose: Infused Ondansetron HCl (Ondansetron 4 Mg/2 Ml Vial) 4 mg IV Q4HP PRN PRN Reason: Nausea And Vomiting Last Admin: 04/15/22 17:39 Dose: 4 mg Pantoprazole Sodium (Pantoprazole 40 Mg Vial) 40 mg IV BIDAC [facility] Last Admin: 04/16/22 06:52 Dose: 40 mg Sodium Chloride (0.9 % Sodium Chloride 10 Ml Syringe) 10 ml IV Q8 [facility] Last Admin: 04/16/22 05:02 Dose: 10 ml Tramadol HCl (Tramadol 50 Mg Tablet) 50 mg PO Q6HP PRN; Protocol PRN Reason: Pain Last Admin: 04/14/22 10:55 Dose: 50 mg A/P Narrative A/P Narrative: * Severe ischemic colitis with lower GI bleed/melena, confirmed on colonoscopy 04/14, nontoxic. Advancing diet * ESRD on dialysis management per nephrology, LUE fistula, next HD 04/18 * Abdominal pain secondary ischemic colitis, clinically improved, on as needed opioids * History of CAD on aspirin Plavix at home. Restart aspirin, Plavix on hold Plan * Diet advancement per GI * DC antibiotics in 24 hours * Restart aspirin, continue home Plavix * Continue HD per nephrology * Pre-existing medical condition management home medications * PT OT/nutrition support * Discharge Pending Clinical Improvement Likely Monday Time Spent With Patient Time: Total time spent is greater than 50% in coordination of care (as documented) at patient's floor/unit and/or counseling patient: Total time spent with greater than 50% in coordination of care (as documented) at patient's floor/unit and/or counseling patient:: 25 - 35 minutes QUALITY VTE Deep Vein Thrombosis/Pulmonary Embolism Present on Admission: No
[2022-04-16] MEDS: CALCIUM ACETATE 667 MG CAPSULE PO SCH ×3 (09:22→18:04)
[2022-04-16] MEDS: ASPIRIN 81 MG TAB.CHEW PO SCH (09:23)
[2022-04-16] MEDS ORDERED: MIDODRINE 5 MG TABLET PO ONE (11:02)
[2022-04-16] MEDS: CYCLOBENZAPRINE 10 MG TABLET PO PRN (22:53)
[2022-04-16] MEDS: HYDROcodone/APAP 5/325MG TABLET PO PRN (22:53)
[2022-04-17] MEDS: PIPERACILLIN SODIUM/TAZOBACTAM 2.25 GM in DEXTROSE 5% IN WATER 50 ML IV SCH ×4 (01:11→21:28)
[2022-04-17] MEDS: 0.9 % SODIUM CHLORIDE 10 ML SYRINGE IV SCH ×3 (05:51→21:28)
[2022-04-17 06:32] LABS: Basophils % (Auto) 1.4 % (0.0-2.0); Eosinophils # (Auto) 0.23 K/mcL (0.00-0.70); Eosinophils % (Auto) 3.2 % (0.0-7.0); Hematocrit 42.2 % (34.1-44.9); Hemoglobin 13.3 g/dL (11.2-15.7); Lymphocytes # (Auto) 1.04 K/mcL (1.50-4.80); Lymphocytes % (Auto) 14.4 % (15.5-49.0); Mean Cell Volume 101.2 fL (80.0-100.0); Mean Corpuscular HGB Conc 31.5 g/dL (31.0-36.0); Mean Platelet Volume 9.3 fL (7.4-10.4); Monocytes # (Auto) 0.52 K/mcL (0.10-0.90); Monocytes % (Auto) 7.2 % (1.0-12.0); Platelet Count 343 K/mcL (140-440); RBC 4.17 M/mcL (3.59-5.38); WBC 7.2 K/mcL (4.5-11.0)
[2022-04-17 07:20] LABS: ALT/SGPT 6 U/L (<40); AST/SGOT 12 U/L (<32); Albumin 3.1 gm/dL (3.2-5.2); Albumin/Globulin Ratio 0.9 (1.0-2.3); Alkaline Phosphatase 57 U/L (39-117); Bilirubin,Direct < 0.2 mg/dL (0-0.3); Bilirubin,Total 0.3 mg/dL (0.1-1.0); Blood Urea Nitrogen 29 mg/dL (8-23); Calcium 8.5 mg/dL (8.6-10.4); Carbon Dioxide 24 mmol/L (22-30); Chloride 88 mmol/L (96-108); Globulin 3.5 gm/dL (2.2-3.7); Glomerular Filtration Rate 5; Glucose 77 mg/dL (70-105); Lactate Dehydrogenase 159 U/L (135-225); Phosphorous 7.4 mg/dL (2.5-4.5); Triglycerides 171 mg/dL (<150); Uric Acid 5.1 mg/dL (2.5-8.0)
[2022-04-17] MEDS: PANTOPRAZOLE 40 MG VIAL IV SCH ×2 (07:44→17:28)
[2022-04-17] MEDS: CALCIUM ACETATE 667 MG CAPSULE PO SCH ×4 (07:44→17:28)
[2022-04-17] MEDS: ASPIRIN 81 MG TAB.CHEW PO SCH (09:10)
--- NOTE | 2022-04-17 10:11 | Internal Med Progress Note ---
SUBJECTIVE Subjective Patient information: Note initiated : 04/17/22 at 10:08 am Service Date, if different from initiated Date: [] Patient: Gayla Hewitt 66 y/o F admitted on 04/11/22 for Lower Quadrant Pain. Chief Complaint: [Black tarry stool] Principal diagnosis: Melena Interval history: The patient was resting comfortably in bed. She states that her abdominal pain has improved. She is eager to advance her diet to full liquid. She is still having melanotic stools she states. Constitutional Vitals: Vital Signs Temp Pulse Resp BP Pulse Ox O2 Del Method O2 Flow Rate 98.4 F 83 18 102/67 99 2 04/17/22 08:00 04/17/22 08:00 04/17/22 08:00 04/17/22 08:00 04/17/22 08:00 04/17/22 08:00 04/17/22 03:08 Period Temp Pulse Resp BP Sys/Kirk Pulse Ox O2 Del Method O2 Flow Rate Last 24 Hr 97.7 F-98.8 F 81-91 16-20 90-105/57-71 96-99 Nasal Cannula- Room Air 2-2 Intake and Output 04/16/22 04/17/22 04/17/22 21:59 05:59 13:59 Intake Total 50 450 290 Output Total 200 Balance 50 450 90 Weight 79.379 kg Intake & Output: Intake & Output 04/16/22 04/17/22 04/17/22 21:59 05:59 13:59 Intake Total 50 450 290 Output Total 200 Balance 50 450 90 Weight 79.379 kg Intake: Nourishment/Supplement quantity 240 (ml) IV 50 50 50 Zosyn 2.25 gm In Dextrose 5% in 50 50 50 Water 50 ml @ 100 mls/hr IV Q8H [facility] Rx#:[id number] Oral 400 Output: Void Amount 200 Other: Meal Breakfast Percent of Meal Consumed 75% Feeding Ability Independent Nourishment/Supplement name Ensure Urine Appearance Mucous Threads Urine Color Brown Stool Size Moderate Stool Color Brown Stool Consistency Loose # Bowel Movements 1 # of times incontinent of 0 Bowels General appearance: average body habitus Head Head exam: Present atraumatic and normal inspection Eye Eye exam: Present normal appearance ENT ENT exam: Present mucous membranes moist, normal exam and normal external ear exam Neck Neck exam: Present normal inspection Respiratory Respiratory exam: Present normal respiratory exam Cardiovascular Cardiovascular exam: Present normal rate and rhythm GI/Abdominal GI/Abdominal exam: Present normal bowel sounds Back Exam Back exam: Present normal inspection Neurological Exam Neurological exam: Present alert and oriented X3 Skin Skin exam: Present intact and warm OBJ DATA Labs CBC & Chem 7: 04/17/22 05:14 04/17/22 05:14 Labs: Abnormal Lab Results 04/17/22 04/17/22 04/16/22 05:14 05:14 05:48 Hct 46.6 H MCV 101.2 H 101.5 H MCHC 30.9 L Immature Gran % (Auto) 2.8 H 1.4 H Neut % (Auto) Lymph % (Auto) 14.4 L 12.4 L Lymph # (Auto) 1.04 L 0.98 L Immature Gran # 0.20 H 0.11 H Chloride 88 L Anion Gap 21.0 H BUN 29 H Creatinine 8.3 H* Glucose Calcium 8.5 L Phosphorus 7.4 H* Albumin 3.1 L Albumin/Globulin Ratio 0.9 L Triglycerides 171 H 04/16/22 04/15/22 04/15/22 05:48 07:58 07:58 Hct MCV MCHC Immature Gran % (Auto) 0.6 H Neut % (Auto) 80.3 H Lymph % (Auto) 10.7 L Lymph # (Auto) 0.88 L Immature Gran # Chloride 88 L 90 L Anion Gap 22.0 H 23.0 H BUN 37 H Creatinine 6.5 H* 8.9 H* Glucose 62 L Calcium 8.3 L Phosphorus 5.9 H* 7.9 H* Albumin Albumin/Globulin Ratio 0.9 L Triglycerides 173 H 172 H Meds: Medications Hydrocodone Bitart/Acetaminophen (Hydrocodone/Apap 5/325mg Tablet) 1 tab PO Q4- 6HP PRN; Protocol PRN Reason: Per Pain Protocol Last Admin: 04/16/22 22:53 Dose: 1 tab Aspirin (Aspirin 81 Mg Tab.Chew) 81 mg PO DAILY [facility] Last Admin: 04/17/22 09:10 Dose: 81 mg Calcium Acetate (Calcium Acetate 667 Mg Capsule) 1,334 mg PO TIDCC [facility] Last Admin: 04/17/22 07:48 Dose: Not Given Cyclobenzaprine HCl (Cyclobenzaprine 10 Mg Tablet) 10 mg PO TIDP PRN PRN Reason: Muscle Spasm Last Admin: 04/16/22 22:53 Dose: 10 mg Piperacillin Sod/Tazobactam (Sod 2.25 gm/ Dextrose) 50 mls @ 100 mls/hr IV Q8H [facility]; Protocol Last Infusion: 04/17/22 06:38 Dose: Infused Ondansetron HCl (Ondansetron 4 Mg/2 Ml Vial) 4 mg IV Q4HP PRN PRN Reason: Nausea And Vomiting Last Admin: 04/15/22 17:39 Dose: 4 mg Pantoprazole Sodium (Pantoprazole 40 Mg Vial) 40 mg IV BIDAC [place] Last Admin: 04/17/22 07:44 Dose: 40 mg Sodium Chloride (0.9 % Sodium Chloride 10 Ml Syringe) 10 ml IV Q8 [place] Last Admin: 04/17/22 05:51 Dose: 10 ml Tramadol HCl (Tramadol 50 Mg Tablet) 50 mg PO Q6HP PRN; Protocol PRN Reason: Pain Last Admin: 04/14/22 10:55 Dose: 50 mg A/P Assessment and plan (1) Nausea: Status: Chronic (2) Anemia: Status: Chronic Comment: [facility] Qualifiers: Anemia type: due to chronic kidney disease Chronic kidney disease stage: on chronic dialysis Qualified Code(s): N18.6 - End stage renal disease; D63.1 - Anemia in chronic kidney disease; Z99.2 - Dependence on renal dialysis (3) ESRD on hemodialysis: Status: Chronic Comment: On dialysis Monday (4) Arteriovenous fistula for hemodialysis in place, primary: Status: Chronic Comment: Placed June 2019. (5) Abdominal pain: Status: Acute (6) Melena: Status: Acute (7) CAD (coronary artery disease): Status: Acute Narrative A/P Narrative: Interval history: The patient became acutely ill after eating pizza. She may have developed gastroenteritis or food poisoning. Because she has complaints of melena in the setting of dual antiplatelets, she will be scheduled for upper and lower endoscopy. She states that she did have a colonoscopy approximately 6 months ago which was unrevealing. CT abdomen pelvis was concerning for abnormal descending colon with wall thickening and luminal irregularity suspicious for neoplasm. We will keep the patient n.p.o., start Protonix 40 mg IV daily, and hold her aspirin and Plavix. 04/12: The patient's H&H is slightly down to 13.6/42.5 today. We will continue Zosyn for possible necrotic colitis of the descending colon. Her white blood cell count is down to 15.1. She underwent EGD today. Continue Protonix 40 mg IV twice daily and she will have a follow-up colonoscopy tomorrow. Gastroenterology is following. 04/13: EGD report is not available in the chart. She has a colonoscopy scheduled this afternoon which will likely help establish a diagnosis. The patient will likely be discharged tomorrow morning. 04/14-patient undergoing bowel prep for colonoscopy today around 3 PM. Continues to experience abdominal pain/intermittent hematochezia. Feels quite anxious and distressed. Ongoing hemodialysis per nephrology. White count down from 15- 12.2, hemoglobin 14 04/15-patient postprocedure, ischemic colitis severe in nature per GI. On gradual diet advancement. Persistent bloody bowels. However nontoxic with pablo ntrending white count. Continuing antibiotic coverage. No overnight fever chills. Cautious monitoring and low threshold for imaging if clinical change noted in the next 24 to 48 hours. 04/16-patient doing well. No overnight events. Abdominal pain much improved. No further bloody bowels except for all bleeding smeared blood. Hemoglobin stable at 14. Nontoxic, normal white count, DC antibiotics. Anticipate discharge on Monday pending clinical improvement. Advance to full liquids. Avoid constipation, hemodialysis on Tuesday 04/17: I spoke with vascular medicine via the consult service at [facility] who states that she does not need to be on dual antiplatelet therapy for her AV fistula stent. This is actually an outflow issue involving the coagulation cascade rather than a platelet issue. He also states that she is at further risk for platelet dysfunction in the setting of underlying is ESRD resulting in uremia. The patient's Plavix will not be reinstituted and will be discontinued. We will continue monotherapy with aspirin. Her H&H remained stable at 13.3/42.2. Her white blood cell count is normalized to 7.2. Continue Zosyn. We will advance diet to full liquids today. Time Spent With Patient Time: Total time spent is greater than 50% in coordination of care (as documented) at patient's floor/unit and/or counseling patient: Total time spent with greater than 50% in coordination of care (as documented) at patient's floor/unit and/or counseling patient:: 35 - 50 minutes QUALITY VTE Deep Vein Thrombosis/Pulmonary Embolism Present on Admission: No
--- NOTE | 2022-04-17 10:20 | Nephrology Progress Note ---
SUBJECTIVE Subjective Patient information: Note initiated : 04/17/22 at 10:18 am Patient: Gayla Hewitt 66 y/o F admitted on 04/11/22 for Lower Quadrant Pain. Chief Complaint: Abdominal pain Principal diagnosis: Melena Pertinent ROS: Weakness Abdominal pain Constitutional Vitals: Vital Signs Temp Pulse Resp BP Pulse Ox O2 Del Method O2 Flow Rate 98.4 F 83 18 102/67 99 2 04/17/22 08:00 04/17/22 08:00 04/17/22 08:00 04/17/22 08:00 04/17/22 08:00 04/17/22 08:00 04/17/22 03:08 Period Temp Pulse Resp BP Sys/Kirk Pulse Ox O2 Del Method O2 Flow Rate Last 24 Hr 97.7 F-98.8 F 81-91 16-20 90-105/57-71 96-99 Nasal Cannula- Room Air 2-2 Intake and Output 04/16/22 04/17/22 04/17/22 21:59 05:59 13:59 Intake Total 50 450 290 Output Total 200 Balance 50 450 90 Weight 175 lb Intake & Output: Intake & Output 04/16/22 04/17/22 04/17/22 21:59 05:59 13:59 Intake Total 50 450 290 Output Total 200 Balance 50 450 90 Weight 175 lb Intake: Nourishment/Supplement quantity 240 (ml) IV 50 50 50 Zosyn 2.25 gm In Dextrose 5% in 50 50 50 Water 50 ml @ 100 mls/hr IV Q8H [facility] Rx#:[id number] Oral 400 Output: Void Amount 200 Other: Meal Breakfast Percent of Meal Consumed 75% Feeding Ability Independent Nourishment/Supplement name Ensure Urine Appearance Mucous Threads Urine Color Brown Stool Size Moderate Stool Color Brown Stool Consistency Loose # Bowel Movements 1 # of times incontinent of 0 Bowels General appearance: cooperative and no acute distress Head Head exam: Present atraumatic and normal inspection Respiratory Respiratory exam: Present normal respiratory exam Cardiovascular Cardiovascular exam: Present normal rate and rhythm GI/Abdominal GI/Abdominal exam: Present soft Extremities Exam Extremities exam: Present pedal edema Neurological Exam Neurological exam: Present alert and oriented X3 Psychiatric Psychiatric exam: Present normal affect and normal mood Skin Skin exam: Present warm A/P Assessment and plan (1) ESRD (end stage renal disease) on dialysis: Assessment and plan: Gayla Huff is a 66-year-old female with end stage renal disease on hemodialysis, admitted on 04/11/22. She presented to [facility] ED for abdominal pain nausea, vomiting and diarrhea. Labs were significant for WBC 15.7, K 6.1, lactic acid 2.7, lipase 74. CT abdomen pelvis wo con reported as abnormal descending colon with wall thickening and luminal irregularity with mild surrounding infiltration, suspicious for neoplasm and colonoscopy is recommended. In ED, she had several loose stools that appeared to be melanotic. Nephrology consultation was requested for end stage renal disease. End stage renal disease on hemodialysis on MWF. Acute gastrointestinal bleeding with ischemic colitis and ileitis. Progress: HD on 04/11/22, 04/13/22, 04/15/22. EGD on 04/13/22: Normal. Colonoscopy on 04/14/22: Ischemic colitis and ileitis. Recommendations/Plan: Next hemodialysis on Monday as inpatient or outpatient. Status: Chronic Time Spent With Patient Time: Total time spent is greater than 50% in coordination of care (as documented) at patient's floor/unit and/or counseling patient:
[2022-04-17] MEDS: CYCLOBENZAPRINE 10 MG TABLET PO PRN (14:08)
[2022-04-17] MEDS: ONDANSETRON 4 MG/2 ML VIAL IV PRN (14:08)
[2022-04-17] MEDS: HYDROcodone/APAP 5/325MG TABLET PO PRN (14:08)
[2022-04-18] MEDS: CYCLOBENZAPRINE 10 MG TABLET PO PRN (00:22)
[2022-04-18] MEDS: HYDROcodone/APAP 5/325MG TABLET PO PRN ×2 (00:22→07:30)
[2022-04-18] MEDS: 0.9 % SODIUM CHLORIDE 10 ML SYRINGE IV SCH (05:07)
[2022-04-18] MEDS: PIPERACILLIN SODIUM/TAZOBACTAM 2.25 GM in DEXTROSE 5% IN WATER 50 ML IV SCH (05:07)
[2022-04-18 06:44] LABS: Basophils # (Auto) 0.09 K/mcL (0.00-0.30); Basophils % (Auto) 1.3 % (0.0-2.0); Eosinophils # (Auto) 0.21 K/mcL (0.00-0.70); Hematocrit 41.9 % (34.1-44.9); Hemoglobin 13.2 g/dL (11.2-15.7); Lymphocytes # (Auto) 0.95 K/mcL (1.50-4.80); Lymphocytes % (Auto) 13.7 % (15.5-49.0); Mean Cell Volume 100.2 fL (80.0-100.0); Mean Corpuscular HGB Conc 31.5 g/dL (31.0-36.0); Mean Platelet Volume 9.3 fL (7.4-10.4); Monocytes # (Auto) 0.51 K/mcL (0.10-0.90); Monocytes % (Auto) 7.4 % (1.0-12.0); Neutrophils % (Auto) 69.5 % (38.0-78.0); Platelet Count 368 K/mcL (140-440); RBC 4.18 M/mcL (3.59-5.38); Red Cell Distribution Width 12.8 % (11.5-14.5); WBC 6.9 K/mcL (4.5-11.0)
[2022-04-18] MEDS: PANTOPRAZOLE 40 MG VIAL IV SCH (07:31)
[2022-04-18] MEDS: CALCIUM ACETATE 667 MG CAPSULE PO SCH (07:31)
[2022-04-18] MEDS: ASPIRIN 81 MG TAB.CHEW PO SCH (07:31)
--- NOTE | 2022-04-18 09:00 | Nephrology Progress Note ---
SUBJECTIVE Subjective Patient information: Note initiated : 04/18/22 at 8:57 am Patient: Gayla Hewitt 66 y/o F admitted on 04/11/22 for Lower Quadrant Pain. Chief Complaint: Abdominal pain Principal diagnosis: Melena Pertinent ROS: Feels better Weakness Constitutional Vitals: Vital Signs Temp Pulse Resp BP Pulse Ox O2 Del Method O2 Flow Rate 97.5 F 82 15 102/66 94 2 04/18/22 07:32 04/18/22 07:32 04/18/22 07:32 04/18/22 07:32 04/18/22 07:32 04/18/22 07:32 04/17/22 03:08 Period Temp Pulse Resp BP Sys/Kirk Pulse Ox O2 Del Method O2 Flow Rate Last 24 Hr 97.4 F-99.4 F 81-98 15-20 87-126/54-71 93-98 Room Air-Room Air Intake and Output 04/17/22 04/18/22 04/18/22 21:59 05:59 13:59 Intake Total 50 170 50 Output Total 150 Balance -100 170 50 Weight 177 lb 4.8 oz Intake & Output: Intake & Output 04/17/22 04/18/22 04/18/22 21:59 05:59 13:59 Intake Total 50 170 50 Output Total 150 Balance -100 170 50 Weight 177 lb 4.8 oz Intake: IV 50 50 50 Zosyn 2.25 gm In Dextrose 5% in 50 50 50 Water 50 ml @ 100 mls/hr IV Q8H [facility] Rx#:[id number] Oral 120 Output: Void Amount 50 Stool 100 Other: Stool Color Brown Stool Consistency Liquid # Voids 1 # Bowel Movements 1 General appearance: cooperative, no acute distress and obese Head Head exam: Present atraumatic and normal inspection Respiratory Respiratory exam: Present decreased breath sounds Cardiovascular Cardiovascular exam: Present normal rate and rhythm GI/Abdominal GI/Abdominal exam: Present soft Neurological Exam Neurological exam: Present alert and oriented X3 Psychiatric Psychiatric exam: Present normal affect and normal mood Skin Skin exam: Present warm A/P Assessment and plan (1) ESRD (end stage renal disease) on dialysis: Assessment and plan: Gayla Huff is a 66-year-old female with end stage renal disease on hemodialysis, admitted on 04/11/22. She presented to [facility] ED for abdominal pain nausea, vomiting and diarrhea. Labs were significant for WBC 15.7, K 6.1, lactic acid 2.7, lipase 74. CT abdomen pelvis wo con reported as abnormal descending colon with wall thickening and luminal irregularity with mild surrounding infiltration, suspicious for neoplasm and colonoscopy is recommended. In ED, she had several loose stools that appeared to be melanotic. Nephrology consultation was requested for end stage renal disease. End stage renal disease on hemodialysis on MWF. Acute gastrointestinal bleeding with ischemic colitis and ileitis. Progress: HD on 04/11/22, 04/13/22, 04/15/22. EGD on 04/13/22: Normal. Colonoscopy on 04/14/22: Ischemic colitis and ileitis. Recommendations/Plan: Hemodialysis today as inpatient or outpatient. Status: Chronic Time Spent With Patient Time: Total time spent is greater than 50% in coordination of care (as documented) at patient's floor/unit and/or counseling patient:
--- NOTE | 2022-04-18 09:48 | Discharge Summary ---
Discharge Provider Provider IMPORTANT FOLLOW-UP INFORMATION FOR PCP: 1. Follow up with Dr. Short 2. Follow up with GI Patient information: Note initiated : 04/18/22 at 9:47 am Service Date, if different from initiated Date: [] Patient: Gayla Hewitt 66 y/o F admitted on 04/11/22 for Lower Quadrant Pain. Chief Complaint: [] Date of admission: 04/11/22 16:28 Discharge date: 04/18/22 Primary care physician: Praneeth Tobin DO Consults: 04/11/22 Consult to Physician [CONS] Stat Comment: Consulting Provider: Rafiq Isbell Reason For Exam: Physician to Consult Consult to Physician [CONS] Stat Comment: Consulting Provider: Tanner Julio Reason For Exam: Physician to Consult Attending physician on discharge: Tanner Julio COURSE Hospital Course Hospital course: Interval history: The patient became acutely ill after eating pizza. She may have developed gastroenteritis or food poisoning. Because she has complaints of melena in the setting of dual antiplatelets, she will be scheduled for upper and lower endoscopy. She states that she did have a colonoscopy approximately 6 months ago which was unrevealing. CT abdomen pelvis was concerning for abnormal descending colon with wall thickening and luminal irregularity suspicious for neoplasm. We will keep the patient n.p.o., start Protonix 40 mg IV daily, and hold her aspirin and Plavix. 04/12: The patient's H&H is slightly down to 13.6/42.5 today. We will continue Zosyn for possible necrotic colitis of the descending colon. Her white blood cell count is down to 15.1. She underwent EGD today. Continue Protonix 40 mg IV twice daily and she will have a follow-up colonoscopy tomorrow. Gastroenterology is following. 04/13: EGD report is not available in the chart. She has a colonoscopy scheduled this afternoon which will likely help establish a diagnosis. The patient will likely be discharged tomorrow morning. 04/14-patient undergoing bowel prep for colonoscopy today around 3 PM. Continues to experience abdominal pain/intermittent hematochezia. Feels quite anxious and distressed. Ongoing hemodialysis per nephrology. White count down from 15- 12.2, hemoglobin 14 04/15-patient postprocedure, ischemic colitis severe in nature per GI. On gradual diet advancement. Persistent bloody bowels. However nontoxic with downtrending white count. Continuing antibiotic coverage. No overnight fever chills. Cautious monitoring and low threshold for imaging if clinical change noted in the next 24 to 48 hours. 04/16-patient doing well. No overnight events. Abdominal pain much improved. No further bloody bowels except for all bleeding smeared blood. Hemoglobin stable at 14. Nontoxic, normal white count, DC antibiotics. Anticipate discharge on Monday pending clinical improvement. Advance to full liquids. Avoid constipation, hemodialysis on Tuesday 04/17: I spoke with vascular medicine via the consult service at [facility] who states that she does not need to be on dual antiplatelet therapy for her AV fistula stent. This is actually an outflow issue involving the coagulation cascade rather than a platelet issue. He also states that she is at further risk for platelet dysfunction in the setting of underlying is ESRD resulting in uremia. The patient's Plavix will not be reinstituted and will be discontinued. We will continue monotherapy with aspirin. Her H&H remained stable at 13.3/42.2. Her white blood cell count is normalized to 7.2. Continue Zosyn. We will advance diet to full liquids today. 04/18: The patient has now completed a course of Zosyn. Her diet has been advanced. Her abdominal exam is benign and is greatly improved since admission. Her H&H is remained stable and she has not required blood transfusion. She is scheduled for outpatient dialysis today and will be discharged home thereafter. She will follow-up with her primary care physician and with gastroenterology in outpatient setting. Of note she will continue aspirin but her Plavix has now been discontinued per my discussion with [facility] vascular surgery. Discharge diagnosis: Severe ischemic colitis Procedures: Procedure: Colonoscopy with Bx Procedure narrative: The procedure, alternatives and risks were discussed with the patient and the p lynda's questions were answered. With endoscopist-administered IV sedation, the Olympus colonoscope was introduced into the rectum and advanced to the cecum. Ileocecal valve was identified, and intubated. Necrotic ulceration was seen in the proximal ascending, cecum and ileum. Special effort was made to examine as much of the terminal ileum as possible. At least 30 to 40 cm of the terminal ileum were examined. Biopsy was taken from the ileal mucosa and proximal ascending colon for histological examination. The colon otherwise appeared normal. Time Spent with Patient Time attestation: Total time spent providing and/or coordinating discharge services: Time spent: Greater than 30 minutes EXAM Constitutional Vitals: Temp Pulse Resp BP Pulse Ox O2 Del Method O2 Flow Rate 97.5 F 82 15 102/66 94 2 04/18/22 07:32 04/18/22 07:32 04/18/22 07:32 04/18/22 07:32 04/18/22 07:32 04/18/22 07:32 04/17/22 03:08 General appearance: average body habitus Head Head exam: Present atraumatic, normal inspection and normocephalic Eye Eye exam: Present EOMI, normal appearance and PERRL; Absent conjunctival injection ENT ENT exam: Present normal exam; Absent mucous membranes dry Neck Neck exam: Present full ROM; Absent lymphadenopathy Respiratory Respiratory exam: Present normal respiratory exam and CTAB; Absent decreased breath sounds, respiratory distress or wheezes Cardiovascular Cardiovascular exam: Present normal rate and rhythm and RRR; Absent JVD GI/Abdominal GI/Abdominal exam: Present normal bowel sounds and soft; Absent diminished bowel sounds, distended, guarding, mass, rebound or tenderness Neurological Exam Neurological exam: Present alert, CN II-XII intact and oriented X3 Psychiatric Psychiatric exam: Present normal affect and normal mood Skin Skin exam: Present intact and warm; Absent erythema, pallor, petechiae or rash Discharge Data Data Completed and Pending Labs on day of discharge: Labs from last 24 hours 04/18/22 04/13/22 05:17 15:30 WBC 6.9 RBC 4.18 Hgb 13.2 Hct 41.9 MCV 100.2 H MCH 31.6 MCHC 31.5 RDW 12.8 Plt Count 368 MPV 9.3 Immature Gran % (Auto) 5.1 H Neut % (Auto) 69.5 Lymph % (Auto) 13.7 L [place] % (Auto) 7.4 Eos % (Auto) 3.0 Baso % (Auto) 1.3 Lymph # (Auto) 0.95 L [place] # (Auto) 0.51 Eos # (Auto) 0.21 Baso # (Auto) 0.09 Immature Gran # 0.35 H Absolute Neutrophils 5.16 O & P Trichrome Stain See note Discharge Plan Patient/Caregiver Discharge Instructions Activity: increase activity as tolerated Diet: Renal/Consistent Carbs Instructions: Colitis (ED) Prescriptions: Continued cholecalciferol (vitamin D3) 100 mcg (4,000 unit) tablet 100 mcg PO QDAY Qty: 90 4RF cyclobenzaprine 10 mg tablet 10 mg PO TID PRN (Reason: muscle spasm) Qty: 90 4RF Phoslyra 667 mg (169 mg calcium)/5 mL solution 1,334 mg PO TID 90 Days Qty: 2700 2RF Rx Instructions: take with meals ondansetron 4 mg tablet,disintegrating 4 mg PO QDAY PRN (Reason: nausea and vomiting) Qty: 30 3RF aspirin [Adult Low Dose Aspirin] 81 mg tablet,delayed release (DR/EC) 81 mg PO QDAY Discontinued clopidogrel [Plavix] 75 mg tablet 75 mg PO QDAY Follow Up Plan Follow up with: Praneeth Tobin DO [Primary Care Provider] - Patient Disposition: Home, Self-Care Prognosis: Fair Rehab Potential: Good I certify that the patient requires SNF services: No Overall status at discharge: patient is progressing back to baseline Discharge Orders: Discharge Order (Routine); Ordered 04/18/22 Ordered By: Tanner BARAJAS VTE Deep Vein Thrombosis/Pulmonary Embolism Present on Admission: No
== END 2022-04-18 10:45 | disposition home or self-care (01) | DRG 393 ==
LOC: ED 07:22 → MEDSUR 16:28
PROVIDERS: ADMIT Student in an Organized Health Care Education/Training Program; ATTEND Student in an Organized Health Care Education/Training Program